=== PATIENT | female | born 1955 | race Caucasian/White ===

== ENCOUNTER 2016-09-02 15:50 | Inpatient (IN) | payer OTHER ==
[~2016-09-02] VITALS: Ht 165.1 cm; Wt 110.8 kg
[~2016-09-02 15:50] MED LIST: CLB100 PO; CLOP1TAB15 PO; CYAN500T13 PO; HYG25 PO; POTA20TA16 PO; SIMV20TA2 PO
[2016-09-02] MEDS ORDERED: SODIUM CHLORIDE 0.9% 1000ML 1,000 ML IV STA ×2 (16:11→17:39)
--- NOTE | 2016-09-02 16:13 | EMERGENCY ROOM VISIT NOTE ---
History Report prepared by Sherry: Oneida Lamas Under the Supervision of: Dr. Benny Paul M.D. First contact with patient: 16:05 Chief Complaint: CONFUSION Stated Complaint: CONFUSED, HEADACHE, UTI, WEAK History of Present Illness The patient is a 61 year old female who presents to the Emergency Room with complaints of worsening confusion beginning 2 hours prior to arrival. The patient states that she is experiencing confusion, global weakness, muscle aches , fatigue, body aches and a headache. She notes that she has experienced these symptoms before with a UTI. The patient is also experiencing nausea and vomiting. She denies fevers. The patient straight catheter herself and notes the urine has been darker in color. 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 A total of 10 systems reviewed and were otherwise negative. Past Medical & Surgical Medical Problems: (1) Anxiety (2) Anxiety State Nos (3) Bladder cancer (4) Bladder cancer (5) Cervical cancer (6) CKD (chronic kidney disease), stage III (7) COPD (chronic obstructive pulmonary disease) (8) Depression (9) Encephalopathy (10) Esophageal Reflux (11) GERD (gastroesophageal reflux disease) (12) HTN (hypertension) (13) HTN (hypertension) (14) Hyperlipidemia Nec/Nos (15) Left knee DJD (16) Seizure (17) Seizure (18) TIA (transient ischemic attack) (19) Tobacco abuse (20) UTI (urinary tract infection) Surgical Problems: (1) Bladder Replacement Nec (2) H/O hernia repair (3) H/O total cystectomy (4) H/O: hysterectomy (5) H/O: hysterectomy (6) History of salpingo-oophorectomy (7) History of total knee arthroplasty (8) Hx of total cystectomy (9) Urinostomy Status Nec Family History FHx: cancer FHx: lung disease Hypertension Social History Smoking Status: Current Every Day Smoker Alcohol Use: none Marital Status: Housing Status: lives with family Occupation Status: employed Current/Historical Medications Scheduled Aspirin (Aspirin Ec), 81 MG PO QAM Buspirone Hcl (Buspirone Hcl), 10 MG PO BID Celecoxib (Celebrex), 2 CAP PO BID Chlorthalidone (Chlorthalidone), 25 MG PO QAM Clopidogrel (Plavix), 75 MG PO QAM Cyanocobalamin (Vitamin B12 500MCG), 1,000 MCG PO QAM Levetiracetam (Keppra), 500 MG PO BID Omeprazole (Prilosec), 20 MG PO QAM Paroxetine (Paxil), 20 MG PO QAM Potassium Ext Rel (Klor-Con), 40 MEQ PO BID Simvastatin (Zocor), 20 MG PO QAM Allergies Coded Allergies: No Known Drug Allergy (Verified Allergy, Unknown, NONE, 09/02/16) Physical Exam Vital Signs Date Time Temp Pulse Resp B/P Pulse Ox O2 Delivery O2 Flow Rate FiO2 09/02/16 17:12 69 18 114/51 95 Room Air 09/02/16 15:54 36.7 85 16 125/81 97 Room Air Physical Exam GENERAL: Patient is uncomfortable appearing, diaphoretic and in no acute distress. HEENT: No acute trauma, normocephalic atraumatic, mucous membranes moist, no nasal congestion, no scleral icterus. NECK: No stridor, no adenopathy, no meningismus, trachea is midline. LUNGS: No dyspnea. Clear to auscultation and equal bilaterally. No wheeze, no rhonchi. HEART: Regular rate and rhythm. No murmurs, rubs, gallops appreciated. ABDOMEN: Extensive scaring with ostomy right mid abdomen. Soft, nontender, bowel sounds positive, no masses appreciated, no peritonitis. BACK: No midline tenderness, no CVA tenderness EXTREMITIES: Normal motion all extremities, no cyanosis, no edema. NEUROLOGIC: Alert and oriented, no acute motor or sensory deficits, no focal weakness, cranial nerves grossly intact. SKIN: No rash, no jaundice, no diaphoresis. Medical Decision & Procedures ER Provider Diagnostic Interpretation: X ray results are stated below per my interpretation and the radiologist's interpretation. CHEST ONE VIEW PORTABLE HISTORY: Generalized Weakness COMPARISON: Chest 02/10/2015. FINDINGS: The lungs are clear. Cardiac silhouette is normal in size. No pleural effusions. No pneumothorax. IMPRESSION: No acute process. Electronically signed by: Aneesh Sow M.D. 09/02/2016 4:31 PM Dictated Date/Time: 09/02/2016 4:30 PM Laboratory Results 09/02/16 16:20 Red Blood Count 4.99, Mean Corpuscular Volume 86.6, Mean Corpuscular Hemoglobin 29.7, Mean Corpuscular Hemoglobin Concent 34.3, Mean Platelet Volume 9.3, Neutrophils (%) (Auto) 78.4, Lymphocytes (%) (Auto) 13.1, Monocytes (%) (Auto) 7.3, Eosinophils (%) (Auto) 0.5, Basophils (%) (Auto) 0.2, Neutrophils # (Auto) 11.70, Lymphocytes # (Auto) 1.95, Monocytes # (Auto) 1.09, Eosinophils # (Auto) 0.08, Basophils # (Auto) 0.03 09/02/16 16:20 Test 09/02/16 16:20 09/02/16 16:27 09/02/16 16:55 White Blood Count 14.93 K/uL (4.8-10.8) Red Blood Count 4.99 M/uL (4.2-5.4) Hemoglobin 14.8 g/dL (12.0-16.0) Hematocrit 43.2 % (37-47) Mean Corpuscular Volume 86.6 fL (80-100) Mean Corpuscular Hemoglobin 29.7 pg (25-34) Mean Corpuscular Hemoglobin Concent 34.3 g/dl (32-36) Platelet Count 354 K/uL (130-400) Mean Platelet Volume 9.3 fL (7.4-10.4) Neutrophils (%) (Auto) 78.4 % Lymphocytes (%) (Auto) 13.1 % Monocytes (%) (Auto) 7.3 % Eosinophils (%) (Auto) 0.5 % Basophils (%) (Auto) 0.2 % Neutrophils # (Auto) 11.70 K/uL (1.4-6.5) Lymphocytes # (Auto) 1.95 K/uL (1.2-3.4) Monocytes # (Auto) 1.09 K/uL (0.11-0.59) Eosinophils # (Auto) 0.08 K/uL (0-0.5) Basophils # (Auto) 0.03 K/uL (0-0.2) RDW Standard Deviation 49.2 fL (36.4-46.3) RDW Coefficient of Variation 15.5 % (11.5-14.5) Immature Granulocyte % (Auto) 0.5 % Immature Granulocyte # (Auto) 0.08 K/uL (0.00-0.02) Prothrombin Time 12.0 SECONDS (9.0-12.0) Prothromb Time International Ratio 1.1 (0.9-1.1) Activated Partial Thromboplast Time 29.4 SECONDS (21.0-31.0) Partial Thromboplastin Ratio 1.1 Anion Gap 13.0 mmol/L (3-11) Est Creatinine Clear Calc Drug Dose 36.4 ml/min Estimated GFR () 34.1 Estimated GFR (Non- 29.4 BUN/Creatinine Ratio 24.3 (10-20) Calcium Level 8.6 mg/dl (8.5-10.1) Phosphorus Level 2.9 mg/dl (2.5-4.9) Magnesium Level 1.2 mg/dl (1.8-2.4) Total Bilirubin 0.4 mg/dl (0.2-1) Direct Bilirubin 0.1 mg/dl (0-0.2) Aspartate Amino Transf (AST/SGOT) 22 U/L (15-37) Alanine Aminotransferase (ALT/SGPT) 33 U/L (12-78) Alkaline Phosphatase 119 U/L (45-117) Total Creatine Kinase 105 U/L (26-192) Creatine Kinase MB 1.2 ng/ml (0.5-3.6) Creatine Kinase MB Ratio 1.1 (0-3.0) Troponin I < 0.015 ng/ml (0-0.045) C-Reactive Protein 3.78 mg/dl (0-0.29) Total Protein 7.8 gm/dl (6.4-8.2) Albumin 3.5 gm/dl (3.4-5.0) Lipase 187 U/L (73-393) Bedside Lactic Acid Venous 1.11 mmol/L (0.90-1.70) Urine Color YELLOW Urine Appearance CLOUDY (CLEAR) Urine pH 7.0 (4.5-7.5) Urine Specific [place] 1.013 (1.000-1.030) Urine Protein 1+ (NEG) Urine Glucose (UA) NEG (NEG) Urine Ketones NEG (NEG) Urine Occult Blood 2+ (NEG) Urine Nitrite POS (NEG) Urine Bilirubin NEG (NEG) Urine Urobilinogen NEG (NEG) Urine Leukocyte Esterase LARGE (NEG) Urine WBC (Auto) >30 /hpf (0-5) Urine RBC (Auto) 10-30 /hpf (0-4) Urine Hyaline Casts (Auto) 5-10 /lpf (0-5) Urine Epithelial Cells (Auto) 5-10 /lpf (0-5) Urine Bacteria (Auto) 1+ (NEG) Urine Pathogenic Casts /lpf (0) Laboratory results as reviewed by me. Medications Administered Medications (Trade) Dose Ordered Sig/Sujit Route Start Time Stop Time Status Last Admin Dose Admin Sodium Chloride (Nss 1000ml) 1,000 ml @ 999 mls/hr Q1H1M STAT IV 09/02/16 16:11 09/02/16 17:11 DC 09/02/16 16:37 999 MLS/HR Morphine Sulfate (MoRPHine SULFATE INJ) 6 mg NOW STAT IV 09/02/16 16:57 09/02/16 16:58 DC 09/02/16 17:10 6 MG Ondansetron HCl (Zofran Inj) 4 mg NOW STAT IV 09/02/16 16:57 09/02/16 16:58 DC 09/02/16 17:10 4 MG Ceftriaxone Sodium (Rocephin Inj) 1 gm NOW STAT IV 09/02/16 17:38 09/02/16 17:39 DC 09/02/16 17:45 1 GM Magnesium Sulfate 2 gm 2 gm NOW STAT IV 09/02/16 17:38 09/02/16 17:39 DC 09/02/16 17:51 2 GM Sodium Chloride (Nss 1000ml) 1,000 ml @ 125 mls/hr Q8H STAT IV 09/02/16 17:39 09/02/16 20:17 DC 09/02/16 17:46 125 MLS/HR ECG Indication: other (confusion) Rate (beats per minute): 68 Rhythm: normal sinus Findings: RBBB, no acute ischemic change, no ectopy ED Course 1607: The patient was evaluated in room B10. A complete history and physical exam was performed. 1611: Sodium Chloride 1,000 ml @ 999 mls/hr IV. 1657: Zofran Inj 4 mg IV, Morphine Sulfate Inj 6 mg IV. 173: Magnesium Sulfate 2 gm IV, Rocephin Inj 1 gm IV, Sodium Chloride 1,000 ml @ 125 mls/hr IV. 1757: Discussed the patient's case with KELLE Scherer. The patient will be evaluated for further treatment and disposition. 1801: Upon reevaluation, the patient is hemodynamically stable. Discussed results and treatment plan with the patient. She verbalized understanding and agreement with the treatment plan. The patient will be evaluated for further management. Medical Decision Differential: Toxicological, Infectious, Stroke, SAH, Trauma, Electrolyte Abnormality, Hypoglycemia, Alcohol Intoxication, Drug Intoxication, Cardiac Abnormality, Sepsis, Meningitis/Encephalitis, Trauma, Excited Delirium, Serotonin Syndrome, Psychiatric, amongst other pathologies entertained. 61 yr old feeling tired, fatigued and feeling confused. Alert and oriented without evidence of meningitis nor acute encephalitis. Labs with significant hypomag thus 2 g IV mag. UA consistent with UTI for which Rocephin given. Renal function with acute worsening from Cr 1 to 1.8 from previous. Consults Time Called: 1754 Consulting Physician: KELLE Scherer Returned Call: 1757 Discussed the patient's case. The patient will be evaluated for further treatment and disposition. Impression Primary Impression: Urinary tract infection Additional Impressions: Sepsis Acute renal failure Confusion Hypomagnesemia Scribe Attestation The scribe's documentation has been prepared under my direction and personally reviewed by me in its entirety. I confirm that the note above accurately reflects all work, treatment, procedures, and medical decision making performed by me. Departure Information Dispostion Being Evaluated By Hospitalist Referrals No Doctor, Assigned (PCP) Problem Qualifiers Primary Impression: Urinary tract infection Urinary tract infection type: acute cystitis Hematuria presence: with hematuria Qualified Codes: N30.01 - Acute cystitis with hematuria Additional Impressions: Sepsis Sepsis type: sepsis due to unspecified organism Qualified Codes: A41.9 - Sepsis, unspecified organism Acute renal failure Acute renal failure type: unspecified Qualified Codes: N17.9 - Acute kidney failure, unspecified
[2016-09-02 16:32] LABS: HEMATOCRIT 43.2 % (37-47); MEAN CELL VOLUME 86.6 fL (80-100); MEAN CORPUSCULAR HEMOGLOBIN 29.7 pg (25-34); MEAN CORPUSCULAR HGB CONC 34.3 g/dl (32-36); MEAN PLATELET VOLUME 9.3 fL (7.4-10.4); PLATELET COUNT 354 K/uL (130-400); RED BLOOD COUNT 4.99 M/uL (4.2-5.4); WHITE BLOOD COUNT 14.93 K/uL (4.8-10.8)
--- NOTE | 2016-09-02 16:32 | DIAGNOSTIC IMAGING REPORT ---
CHEST ONE VIEW PORTABLE HISTORY: Generalized Weakness COMPARISON: Chest 02/10/2015. FINDINGS: The lungs are clear. Cardiac silhouette is normal in size. No pleural effusions. No pneumothorax. IMPRESSION: No acute process. Electronically signed by: Aneesh Sow M.D. 09/02/2016 4:31 PM Dictated Date/Time: 09/02/2016 4:30 PM
[2016-09-02 16:40] LABS: INR 1.1 (0.9-1.1); PARTIAL THROMBOPLASTIN RATIO 1.1
[2016-09-02 16:52] LABS: ALT/SGPT 33 U/L (12-78); AST/SGOT 22 U/L (15-37); BLOOD UREA NITROGEN 44 mg/dl (7-18); BUN/CREATININE RATIO 24.3 (10-20); CALCIUM 8.6 mg/dl (8.5-10.1); CARBON DIOXIDE 19 mmol/L (21-32); CHLORIDE 110 mmol/L (98-107); GLUCOSE 100 mg/dl (70-99); MAGNESIUM 1.2 mg/dl (1.8-2.4); POTASSIUM 3.5 mmol/L (3.5-5.1); SODIUM 142 mmol/L (136-145)
[2016-09-02 16:55] LABS: ALKALINE PHOSPHATASE 119 U/L (45-117); BASO % 0.2 %; BASO ABS # 0.03 K/uL (0-0.2); C-REACTIVE PROTEIN 3.78 mg/dl (0-0.29); CKMB/CK RATIO 1.1 (0-3.0); COMPLETE YES; EOS % 0.5 %; IG% 0.5 %; LYMPH % 13.1 %; LYMPH ABS # 1.95 K/uL (1.2-3.4); MONO % 7.3 %; NEUT % 78.4 %; PHOSPHORUS 2.9 mg/dl (2.5-4.9)
[2016-09-02] MEDS ORDERED: MoRPHine SULFATE 10 MG/ML CARP/VIAL IV STA (16:57)
[2016-09-02] MEDS ORDERED: ONDANSETRON INJ 2 MG/ML 2 ML VIAL IV STA (16:57)
[2016-09-02 17:19] LABS: URINE APPEARANCE CLOUDY (CLEAR); URINE BILIRUBIN NEG (NEG); URINE COLOR YELLOW; URINE NITRITE POS (NEG); URINE SPECIFIC GRAVITY 1.013 (1.000-1.030); UROBILINOGEN NEG (NEG); ZZURINE CULT IF INDIC CATH YES
[2016-09-02 17:25] LABS: MANUAL MICROSCOPIC REQUIRED? NO; REVIEW REQ? YES
[2016-09-02] MEDS ORDERED: CEFTRIAXONE SOD INJ 1 GM ADDVIAL IV STA (17:38)
[2016-09-02] MEDS ORDERED: MAGNESIUM SULFATE 1GM / D5W 1 GM BAG IV STA (17:38)
[2016-09-02] MEDS: NICOTINE 14 MG/24 HR TDSY TD SCH (18:39)
[2016-09-02] MEDS ORDERED: ONDANSETRON INJ 2 MG/ML 2 ML VIAL IV PRN (18:45)
--- NOTE | 2016-09-02 19:03 | History and Physical ---
History & Physical Date & Time of Service: September 02, 2016 at 18:43 Chief Complaint: Confused, Headache, Uti, Weak Primary Care Physician: Cyril Kaiser MD History of Present Illness Source: patient, family, clinic records, hospital records Patient seen and examined. 61 year old female with PMHX of Bladder CA s/p cystectomy, COPD chronic tobacco abuse, anxiety, HTN, CKD stage 3 seizures and other problems listed below presents to the ED complaining of confusion beginning prior to arrival. Patient reports that this afternoon she started to not feel well. She felt confused like she was in a fog. She reports feeling generally weak and myalgias. She states she has nausea and two episodes of vomiting. She also reports a headache. She states this has happened before when she has had UTIs and she has previously become septic so she came to the ED for further evaluation. Patient has a history of bladder CA and straight caths at home. She states her urine looks dark. She also reports diarrhea for many years. She states she can have >10 episodes some days and takes Imodium very often however then she gets constipated and has to stop. She states today she has had five episodes of watery diarrhea. She denies fevers, chills, URI symptoms, chest pain, SOB, calf pain and edema. She denies recent abx use. She reports chronic Celebrex 200mg BID. She states she also will take 800mg of ibuprofen on top of that which she has done three times this week. In the ED VS are stable. WBC count is 14K, Lactate is <2, UA shows possible infection. Crea is 1.8 from baseline of 1. She received IVFs and Rocephin. She will be admitted for further workup and treatment. Past Medical/Surgical History Medical Problems: (1) Anxiety Status: Chronic (2) Anxiety State Nos Status: Chronic (3) Bladder cancer Status: Resolved (4) Bladder cancer Status: Chronic (5) Cervical cancer Status: Chronic (6) CKD (chronic kidney disease), stage III Status: Chronic (7) COPD (chronic obstructive pulmonary disease) Status: Chronic (8) Depression Status: Chronic (9) Esophageal Reflux Status: Chronic (10) GERD (gastroesophageal reflux disease) Status: Chronic (11) HTN (hypertension) Status: Chronic (12) HTN (hypertension) Status: Chronic (13) Hyperlipidemia Nec/Nos Status: Chronic (14) Left knee DJD Status: Resolved (15) Seizure Status: Chronic (16) Seizure Status: Chronic (17) TIA (transient ischemic attack) Status: Chronic (18) Tobacco abuse Status: Chronic Surgical Problems: (1) Bladder Replacement Nec Status: Resolved (2) H/O hernia repair Status: Chronic (3) H/O total cystectomy Status: Resolved (4) H/O: hysterectomy Status: Resolved (5) H/O: hysterectomy Status: Chronic (6) History of salpingo-oophorectomy Status: Chronic (7) History of total knee arthroplasty Status: Chronic (8) Hx of total cystectomy Permanent Comment: with marlin pouch Status: Chronic (9) Urinostomy Status Nec Status: Chronic Family History FHx: cancer FHx: lung disease Hypertension Social History Smoking Status: Current Every Day Smoker Alcohol Use: none Marital Status: Housing status: lives with family Occupational Status: retired Immunizations History of Influenza Vaccine: Yes History of Tetanus Vaccine?: UTD History of Pneumococcal: No History of Hepatitis B Vaccine: No Allergies Coded Allergies: No Known Drug Allergy (Verified Allergy, Unknown, NONE, 09/02/16) Home Medications Scheduled Aspirin (Aspirin Ec), 81 MG PO QAM Buspirone Hcl (Buspirone Hcl), 10 MG PO BID Celecoxib (Celebrex), 2 CAP PO BID Chlorthalidone (Chlorthalidone), 25 MG PO QAM Clopidogrel (Plavix), 75 MG PO QAM Cyanocobalamin (Vitamin B12 500MCG), 1,000 MCG PO QAM Levetiracetam (Keppra), 500 MG PO BID Omeprazole (Prilosec), 20 MG PO QAM Paroxetine (Paxil), 20 MG PO QAM Potassium Ext Rel (Klor-Con), 40 MEQ PO BID Simvastatin (Zocor), 20 MG PO QAM Review of Systems Constitutional: + fatigue, + weakness, No chills, No fever Eyes: No worsening of vision ENT: No nasal symptoms Respiratory: No cough, No shortness of breath Cardiovascular: No chest pain, No edema, No palpitations Abdomen: + diarrhea, + nausea, + vomiting, No constipation, No pain Musculoskeletal: + muscle pain, No calf pain, No swelling Genitourinary - Female: + problem reported (straight caths ) Neurologic: No numbness/tingling, No vertigo Psychiatric: No anxiety Endocrine: No excessive thirst, No fatigue Hematologic / Lymphatic: No abnormal bleeding/bruising, No clotting problems Integumentary: No itch, No rash Allergic / Immunologic: No environmental allergies Physical Exam Vital Signs Date Time Temp Pulse Resp B/P Pulse Ox O2 Delivery O2 Flow Rate FiO2 09/02/16 17:12 69 18 114/51 95 Room Air 09/02/16 15:54 36.7 85 16 125/81 97 Room Air General Appearance: + pertinent finding (WD/WN 61 year old female lying in bed in NAD with at bedside ) Head: normocephalic, atraumatic Eyes: PERRL, EOMI, sclerae normal ENT: hearing grossly normal, pharynx normal Neck: supple, no JVD Respiratory/Chest: chest non-tender, lungs clear, normal breath sounds, no respiratory distress, no accessory muscle use Cardiovascular: regular rate, rhythm, no edema, no gallop, no JVD, no murmur, normal peripheral pulses Abdomen/GI: normal bowel sounds, non tender, soft, + pertinent finding ( straight cath ostomey site right middle abdomen ) Back: normal inspection, no CVA tenderness, no muscle spasm Extremities/Musculoskelatal: no calf tenderness, normal capillary refill, no pedal edema Neurologic/Psych: alert, oriented x 3, + pertinent finding (oriented, thought process tangential, fixated on nicotine patch, no focal deficits ) Skin: normal color, warm/dry, no rash Lymphatic: no adenopathy Diagnostics Laboratory Results Results Past 24 Hours Test 09/02/16 16:20 09/02/16 16:27 09/02/16 16:55 Range/Units White Blood Count 14.93 4.8-10.8 K/uL Red Blood Count 4.99 4.2-5.4 M/uL Hemoglobin 14.8 12.0-16.0 g/dL Hematocrit 43.2 37-47 % Mean Corpuscular Volume 86.6 80-100 fL Mean Corpuscular Hemoglobin 29.7 25-34 pg Mean Corpuscular Hemoglobin Concent 34.3 32-36 g/dl Platelet Count 354 130-400 K/uL Mean Platelet Volume 9.3 7.4-10.4 fL Neutrophils (%) (Auto) 78.4 % Lymphocytes (%) (Auto) 13.1 % Monocytes (%) (Auto) 7.3 % Eosinophils (%) (Auto) 0.5 % Basophils (%) (Auto) 0.2 % Neutrophils # (Auto) 11.70 1.4-6.5 K/uL Lymphocytes # (Auto) 1.95 1.2-3.4 K/uL Monocytes # (Auto) 1.09 0.11-0.59 K/uL Eosinophils # (Auto) 0.08 0-0.5 K/uL Basophils # (Auto) 0.03 0-0.2 K/uL RDW Standard Deviation 49.2 36.4-46.3 fL RDW Coefficient of Variation 15.5 11.5-14.5 % Immature Granulocyte % (Auto) 0.5 % Immature Granulocyte # (Auto) 0.08 0.00-0.02 K/uL Prothrombin Time 12.0 9.0-12.0 SECONDS Prothromb Time International Ratio 1.1 0.9-1.1 Activated Partial Thromboplast Time 29.4 21.0-31.0 SECONDS Partial Thromboplastin Ratio 1.1 Sodium Level 142 136-145 mmol/L Potassium Level 3.5 3.5-5.1 mmol/L Chloride Level 110 98-107 mmol/L Carbon Dioxide Level 19 21-32 mmol/L Anion Gap 13.0 3-11 mmol/L Blood Urea Nitrogen 44 7-18 mg/dl Creatinine 1.80 0.60-1.20 mg/dl Est Creatinine Clear Calc Drug Dose 36.4 ml/min Estimated GFR () 34.1 Estimated GFR (Non- 29.4 BUN/Creatinine Ratio 24.3 10-20 Random Glucose 100 70-99 mg/dl Calcium Level 8.6 8.5-10.1 mg/dl Phosphorus Level 2.9 2.5-4.9 mg/dl Magnesium Level 1.2 1.8-2.4 mg/dl Total Bilirubin 0.4 0.2-1 mg/dl Direct Bilirubin 0.1 0-0.2 mg/dl Aspartate Amino Transf (AST/SGOT) 22 15-37 U/L Alanine Aminotransferase (ALT/SGPT) 33 12-78 U/L Alkaline Phosphatase 119 45-117 U/L Total Creatine Kinase 105 26-192 U/L Creatine Kinase MB 1.2 0.5-3.6 ng/ml Creatine Kinase MB Ratio 1.1 0-3.0 Troponin I < 0.015 0-0.045 ng/ml C-Reactive Protein 3.78 0-0.29 mg/dl Total Protein 7.8 6.4-8.2 gm/dl Albumin 3.5 3.4-5.0 gm/dl Lipase 187 73-393 U/L Bedside Lactic Acid Venous 1.11 0.90-1.70 mmol/L Urine Color YELLOW Urine Appearance CLOUDY CLEAR Urine pH 7.0 4.5-7.5 Urine Specific [place] 1.013 1.000-1.030 Urine Protein 1+ NEG Urine Glucose (UA) NEG NEG Urine Ketones NEG NEG Urine Occult Blood 2+ NEG Urine Nitrite POS NEG Urine Bilirubin NEG NEG Urine Urobilinogen NEG NEG Urine Leukocyte Esterase LARGE NEG Urine WBC (Auto) >30 0-5 /hpf Urine RBC (Auto) 10-30 0-4 /hpf Urine Hyaline Casts (Auto) 5-10 0-5 /lpf Urine Epithelial Cells (Auto) 5-10 0-5 /lpf Urine Bacteria (Auto) 1+ NEG Urine Pathogenic Casts 0 /lpf Microbiology Results 09/02/16 Urine Culture, Received Pending Diagnostic Radiology CXR Per radiologist read: IMPRESSION: No acute process. EKG NSR 68 BPM, RBBB QTc 448 Impression Assessment and Plan 61 year old female who chronically straight caths presents to the ED complaining of confusion, generalized weakness, nausea/vomiting. States this is how she feels when she is getting a UTI. Urine darker than normal ENCEPHALOPATHY SECONDARY TO URINARY TRACT INFECTION -Admit to tele -Afebrile, lactate 1.1, WBC count 14K, BP stable -Of note leukocytosis has been noted for several years - patient has seen Heme/ onc who believe leukemoid reaction. -UA with signs of infection, culture pending -previous cultures with Klebsiella resistant to ampicillin -continue empiric treatment with Rocephin started in ED, adjust per sensitives -IVF hydration -CBC, PRP, Mg in AM ACUTE RENAL INJURY ON CKD STAGE 3 -Crea 1.8 baseline 1 -like multifactorial secondary to dehydration, diuretic use, and NSAID use -hold Diuretics, NSAIDs -IVF hydration -Repeat PRP in AM -if renal function does not improve explore further workup HYPOMAGNESEMIA -1.2 -replace -follow DIARRHEA -somewhat chronic but possibly worse now -check C.diff H/O BLADDER CA -s/p cystectomy with Bremer pouch -continue to straight cath H/O TIA -continue Statin, ASA, Plavix HTN -stable -hold chlorthalidone for ASHA -monitor in tele H/O SEIZURES -continue Keppra TOBACCO ABUSE -Cessation counseling given -Nicotine patch ordered ANXIETY -continue BuSpar, Paxil H/O CERVICAL CA -s/p hysterectomy GERD -continue PPI DVT PROPHYLAXIS: Sq heparin CODE STATUS: FULL CODE DISPO:In my clinical judgment this beneficiary meets acute admission criteria, established by [facility], that includes being hospitalized through two midnights. Patient seen in collaboration with Dr. Troy VTE Prophylaxis VTE Risk Assessment Done? Y/N: Yes Risk Level: Moderate Given or contraindicated: Unfractionated heparin SQ Note ATTENDING ADDENDUM Record reviewed. Patient interviewed and examined. Care coordinated with Leila Mohamud PA-C. Please refer to her documentation for patient's history. Briefly, 61 YO female with history of recurrent UTI's. History of bladder and cervical Ca; s/p cystectomy with Bremer pouch. Performs straight caths 3-5 times a day. Presented to ED with confusion, myalgias, nausea, vomiting, dark-colored urine. Has chronic diarrhea, but stool frequency increased. EXAM: General- no distress VS- as noted HEENT- anicteric Neck- supple Lungs- clear Heart- RRR Abdomen- + BS, soft, nontender Back- no CVT tenderness Extremities- no pretibial edema or calf tenderness Neuro- alert, oriented DATA: WBC 14,930 BUN 44, creat 1.8, K 3.5, Mg 1.2. Lactate 1.11, CRP 3.78. UA- + nitrites, + leuk esterase, > 30 WBC, 10-30 RBC, 5-10 hyaline casts, + bacteria. Other lab studies as noted. CXR- neg. EKG performed at 16:37 reviewed and demonstrated NSR at 70 / minute, RBBB. ASSESSMENT AND PLAN: UTI UA findings could be secondary to UTI or colonization, but WBC is elevated and pt feels that symptoms are consistent with previous UTI's. Urine culture ordered. Does not appear to be septic. Received IV ceftriaxone in ED which will be continued. CONFUSION Patient felt confused at home. Alert and oriented in ED. Possible encephalopathy secondary to UTI. Please refer to KELLE Mohamud's documentation for discussion of other issues. ACUTE KIDNEY INJURY / CKD III Serum creatinine 1.8, compared to baseline of 1.0. Probably volume depleted. IV fluids. Hold chlorthalidone. Follow. Will need further eval if renal function does not improve to baseline. HYPOMAGNESEMIA Replace. Follow. LOOSE STOOLS Chronic, but more frequent. Has been on multiple courses of antibiotics. Check for C diff. Please refer to KELLE Mohamud's documentation for discussion of other issues. Ted Troy MD .
[2016-09-02 20:00] VITALS: BP 119/71; TEMP 36.4; Ht 165.1 cm; Wt 110.8 kg
[2016-09-02 20:31] VITALS: BP 158/82; PULSE 62; TEMP 36.4; O2SAT 94
[2016-09-02] MEDS: ACETAMINOPHEN 325 MG TAB PO PRN (22:02)
[2016-09-02] MEDS: SODIUM CHLORIDE 0.9% 1000ML 1,000 ML IV SCH (22:03)
[2016-09-02] MEDS: POTASSIUM CHLORIDE 20 MEQ TABCR PO SCH (22:05)
[2016-09-02] MEDS: MAGNESIUM CHLORIDE 64MG DELAYED REL TAB PO SCH (22:06)
[2016-09-02] MEDS: LEVETIRACETAM 500 MG TAB PO SCH (22:07)
[2016-09-02] MEDS: HEPARIN SOD 5000 UNIT/0.5 ML CARP SQ SCH (22:18)
[2016-09-02 23:24] VITALS: BP 93/53; PULSE 61; TEMP 36.5; O2SAT 93
[2016-09-03] VITALS (8 sets, daily range): BP systolic 110–135; BP diastolic 64–81; PULSE 52–56; TEMP 36.3–36.9; O2SAT 94–98
[2016-09-03] MEDS: SODIUM CHLORIDE 0.9% 1000ML 1,000 ML IV SCH ×3 (04:48→18:45)
[2016-09-03] MEDS: HEPARIN SOD 5000 UNIT/0.5 ML CARP SQ SCH ×3 (05:33→21:06)
[2016-09-03 05:46] LABS: HEMATOCRIT 39.5 % (37-47); MEAN CELL VOLUME 88.6 fL (80-100); MEAN CORPUSCULAR HEMOGLOBIN 28.9 pg (25-34); MEAN CORPUSCULAR HGB CONC 32.7 g/dl (32-36); MEAN PLATELET VOLUME 9.4 fL (7.4-10.4); PLATELET COUNT 303 K/uL (130-400); RED BLOOD COUNT 4.46 M/uL (4.2-5.4); WHITE BLOOD COUNT 10.84 K/uL (4.8-10.8)
[2016-09-03 06:20] LABS: BUN/CREATININE RATIO 26.3 (10-20); CREATININE 1.3 mg/dl (0.60-1.20); MAGNESIUM 1.8 mg/dl (1.8-2.4); POTASSIUM 3.6 mmol/L (3.5-5.1)
[2016-09-03] MEDS: ACETAMINOPHEN 325 MG TAB PO PRN ×2 (06:24→16:04)
[2016-09-03 06:40] LABS: CALCIUM 7.4 mg/dl (8.5-10.1)
[2016-09-03] MEDS ORDERED: NURSING VERBAL MED ORDER ONE (06:45)
[2016-09-03] MEDS ORDERED: LORAZEPAM 0.5 MG TAB PO STA (06:52)
[2016-09-03] MEDS: POTASSIUM CHLORIDE 20 MEQ TABCR PO SCH ×2 (07:51→21:04)
[2016-09-03] MEDS: CYANOCOBALAMIN 500 MCG TAB (VIT B-12) PO SCH (07:52)
[2016-09-03] MEDS: MAGNESIUM CHLORIDE 64MG DELAYED REL TAB PO SCH ×2 (07:52→21:03)
[2016-09-03] MEDS: SIMVASTATIN 20 MG TAB PO SCH (07:52)
[2016-09-03] MEDS: PANTOprazole SOD 40 MG TAB PO SCH (07:52)
[2016-09-03] MEDS: ASPIRIN 81 MG ECTAB PO SCH (07:52)
[2016-09-03] MEDS: LEVETIRACETAM 500 MG TAB PO SCH ×2 (07:52→21:03)
[2016-09-03] MEDS: NICOTINE 14 MG/24 HR TDSY TD SCH (07:53)
[2016-09-03] MEDS: CLOPIDOGREL BISULFATE 75 MG TAB PO SCH (07:53)
[2016-09-03] MEDS: PAROXETINE 20 MG TAB PO SCH (07:53)
--- NOTE | 2016-09-03 11:50 | Progress Note ---
Internal Med Progress Note Date of Service: September 03, 2016. Provider Documentation: SUBJECTIVE: Patient is marginally better than yesterday. Mental fogginess is better, but has generalized weakness which is persistent Dysuria, frequency is better Chronic diarrhea No flank pain, fever, chills, nausea, vomiting. OBJECTIVE: Vital Signs-as noted below Exam: General: AAOX3, no distress, Obese + HEENT- anicteric Neck- supple Lungs- clear, no wheezing, rhonchi Heart- S1, S2 normal, no murmur Abdomen- + BS, soft, nontender Back- no CVT tenderness Extremities- no pretibial edema or calf tenderness Neuro- AAOX3, no deficits Lab data as noted below. ASSESSMENT & PLAN: 61 year old female who chronically straight caths presents to the ED complaining of confusion, generalized weakness, nausea/vomiting. States this is how she feels when she is getting a UTI. Urine darker than normal METABOLIC ENCEPHALOPATHY SECONDARY TO URINARY TRACT INFECTION -Afebrile, lactate 1.1, WBC count 14K- trending down, BP stable -Of note leukocytosis has been noted for several years - patient has seen Heme/ onc who believe leukemoid reaction. -UA with signs of infection, culture pending -Previous cultures with Klebsiella resistant to ampicillin -Continue with IV Rocephin -IVF hydration - to be continued, but decrease rate to 75 cc/hour ACUTE RENAL INJURY ON CKD STAGE 3- Improving -Creatinine 1.8 baseline 1 -Likely multifactorial secondary to dehydration, diuretic use, and NSAID use, chronic diarrhea - multifactorial -Hold Diuretics, NSAIDs -IVF hydration - decrease rate to 75 cc/hour HYPOMAGNESEMIA - Resolved -1.2 on presentation -follow DIARRHEA, CHRONIC -Chronic per patient -C.diff - pending H/O BLADDER CA -s/p cystectomy with [place] pouch -continue to straight cath H/O TIA -continue Statin, ASA, Plavix HTN -stable -hold chlorthalidone for ASHA -monitor in tele H/O SEIZURES -continue Keppra TOBACCO ABUSE -Cessation counseling given -Nicotine patch ordered ANXIETY -continue BuSpar, Paxil H/O CERVICAL CA -s/p hysterectomy GERD -continue PPI DVT PROPHYLAXIS: Sq heparin CODE STATUS: FULL CODE DISPO:In my clinical judgment this beneficiary meets acute admission criteria, established by [facility], that includes being hospitalized through two midnights. Vital Signs: Date Time Temp Pulse Resp B/P Pulse Ox O2 Delivery O2 Flow Rate FiO2 09/03/16 11:08 36.6 52 18 131/81 98 Room Air 09/03/16 08:00 98 Room Air 09/03/16 06:56 36.3 56 18 124/64 98 Room Air 09/03/16 04:05 Room Air 09/03/16 04:04 36.4 55 18 119/71 96 Room Air 09/03/16 00:05 Room Air 09/02/16 23:24 36.5 61 18 93/53 93 Room Air 09/02/16 20:31 36.4 62 18 158/82 94 Room Air 09/02/16 20:00 36.4 18 119/71 Room Air 09/02/16 19:07 61 18 119/62 92 Room Air 09/02/16 17:12 69 18 114/51 95 Room Air 09/02/16 15:54 36.7 85 16 125/81 97 Room Air Lab Results: Results Past 24 Hours Test 09/02/16 16:20 09/02/16 16:27 09/02/16 16:55 09/03/16 05:30 Range/Units White Blood Count 14.93 10.84 4.8-10.8 K/uL Red Blood Count 4.99 4.46 4.2-5.4 M/uL Hemoglobin 14.8 12.9 12.0-16.0 g/dL Hematocrit 43.2 39.5 37-47 % Mean Corpuscular Volume 86.6 88.6 80-100 fL Mean Corpuscular Hemoglobin 29.7 28.9 25-34 pg Mean Corpuscular Hemoglobin Concent 34.3 32.7 32-36 g/dl Platelet Count 354 303 130-400 K/uL Mean Platelet Volume 9.3 9.4 7.4-10.4 fL Neutrophils (%) (Auto) 78.4 % Lymphocytes (%) (Auto) 13.1 % Monocytes (%) (Auto) 7.3 % Eosinophils (%) (Auto) 0.5 % Basophils (%) (Auto) 0.2 % Neutrophils # (Auto) 11.70 1.4-6.5 K/uL Lymphocytes # (Auto) 1.95 1.2-3.4 K/uL Monocytes # (Auto) 1.09 0.11-0.59 K/uL Eosinophils # (Auto) 0.08 0-0.5 K/uL Basophils # (Auto) 0.03 0-0.2 K/uL RDW Standard Deviation 49.2 50.4 36.4-46.3 fL RDW Coefficient of Variation 15.5 15.6 11.5-14.5 % Immature Granulocyte % (Auto) 0.5 % Immature Granulocyte # (Auto) 0.08 0.00-0.02 K/uL Prothrombin Time 12.0 9.0-12.0 SECONDS Prothromb Time International Ratio 1.1 0.9-1.1 Activated Partial Thromboplast Time 29.4 21.0-31.0 SECONDS Partial Thromboplastin Ratio 1.1 Sodium Level 142 144 136-145 mmol/L Potassium Level 3.5 3.6 3.5-5.1 mmol/L Chloride Level 110 114 98-107 mmol/L Carbon Dioxide Level 19 20 21-32 mmol/L Anion Gap 13.0 10.0 3-11 mmol/L Blood Urea Nitrogen 44 34 7-18 mg/dl Creatinine 1.80 1.30 0.60-1.20 mg/dl Est Creatinine Clear Calc Drug Dose 36.4 54.1 ml/min Estimated GFR () 34.1 50.6 Estimated GFR (Non- 29.4 43.6 BUN/Creatinine Ratio 24.3 26.3 10-20 Random Glucose 100 84 70-99 mg/dl Calcium Level 8.6 7.4 8.5-10.1 mg/dl Phosphorus Level 2.9 2.5-4.9 mg/dl Magnesium Level 1.2 1.8 1.8-2.4 mg/dl Total Bilirubin 0.4 0.2-1 mg/dl Direct Bilirubin 0.1 0-0.2 mg/dl Aspartate Amino Transf (AST/SGOT) 22 15-37 U/L Alanine Aminotransferase (ALT/SGPT) 33 12-78 U/L Alkaline Phosphatase 119 45-117 U/L Total Creatine Kinase 105 26-192 U/L Creatine Kinase MB 1.2 0.5-3.6 ng/ml Creatine Kinase MB Ratio 1.1 0-3.0 Troponin I < 0.015 0-0.045 ng/ml C-Reactive Protein 3.78 0-0.29 mg/dl Total Protein 7.8 6.4-8.2 gm/dl Albumin 3.5 3.4-5.0 gm/dl Lipase 187 73-393 U/L Bedside Lactic Acid Venous 1.11 0.90-1.70 mmol/L Urine Color YELLOW Urine Appearance CLOUDY CLEAR Urine pH 7.0 4.5-7.5 Urine Specific [place] 1.013 1.000-1.030 Urine Protein 1+ NEG Urine Glucose (UA) NEG NEG Urine Ketones NEG NEG Urine Occult Blood 2+ NEG Urine Nitrite POS NEG Urine Bilirubin NEG NEG Urine Urobilinogen NEG NEG Urine Leukocyte Esterase LARGE NEG Urine WBC (Auto) >30 0-5 /hpf Urine RBC (Auto) 10-30 0-4 /hpf Urine Hyaline Casts (Auto) 5-10 0-5 /lpf Urine Epithelial Cells (Auto) 5-10 0-5 /lpf Urine Bacteria (Auto) 1+ NEG Urine Pathogenic Casts 0 /lpf Microbiology Results 09/02/16 Urine Culture, Received Pending
[2016-09-03] MEDS ORDERED: CEFTRIAXONE SOD INJ 1 GM in DEXTROSE 5% ADD-VANTAGE 50ML 50 ML IV SCH (18:00)
[2016-09-04] MEDS: SODIUM CHLORIDE 0.9% 1000ML 1,000 ML IV SCH (02:15)
[2016-09-04 04:17] VITALS: BP 124/60; PULSE 56; TEMP 36.9; O2SAT 95
[2016-09-04] MEDS: HEPARIN SOD 5000 UNIT/0.5 ML CARP SQ SCH ×2 (05:28→12:26)
[2016-09-04] MEDS ORDERED: ACETAMINOPHEN IV 1000MG/100ML IV PRN (06:15)
[2016-09-04 06:44] LABS: HEMATOCRIT 39.2 % (37-47); MEAN CELL VOLUME 87.9 fL (80-100); MEAN CORPUSCULAR HEMOGLOBIN 28.9 pg (25-34); MEAN CORPUSCULAR HGB CONC 32.9 g/dl (32-36); MEAN PLATELET VOLUME 9.2 fL (7.4-10.4); PLATELET COUNT 334 K/uL (130-400); RED BLOOD COUNT 4.46 M/uL (4.2-5.4); WHITE BLOOD COUNT 9.92 K/uL (4.8-10.8)
[2016-09-04 07:08] LABS: BUN/CREATININE RATIO 19.8 (10-20); CALCIUM 8.1 mg/dl (8.5-10.1); CREATININE 1.3 mg/dl (0.60-1.20); POTASSIUM 4.1 mmol/L (3.5-5.1)
[2016-09-04 07:18] LABS: THYROID STIMULATING HORMONE 2.19 uIu/ml (0.300-4.500)
[2016-09-04] MEDS: CLOPIDOGREL BISULFATE 75 MG TAB PO SCH (07:24)
[2016-09-04] MEDS: ASPIRIN 81 MG ECTAB PO SCH (07:24)
[2016-09-04] MEDS: PANTOprazole SOD 40 MG TAB PO SCH (07:24)
[2016-09-04] MEDS: SIMVASTATIN 20 MG TAB PO SCH (07:25)
[2016-09-04] MEDS: PAROXETINE 20 MG TAB PO SCH (07:25)
[2016-09-04] MEDS: LEVETIRACETAM 500 MG TAB PO SCH (07:25)
[2016-09-04] MEDS: CYANOCOBALAMIN 500 MCG TAB (VIT B-12) PO SCH (07:25)
[2016-09-04] MEDS: POTASSIUM CHLORIDE 20 MEQ TABCR PO SCH (07:25)
[2016-09-04] MEDS: NICOTINE 14 MG/24 HR TDSY TD SCH (07:26)
[2016-09-04] MEDS: MAGNESIUM CHLORIDE 64MG DELAYED REL TAB PO SCH (07:26)
[2016-09-04 07:28] VITALS: BP 103/53; PULSE 62; TEMP 36.5; O2SAT 97
[2016-09-04 08:00] VITALS: O2SAT 97
--- NOTE | 2016-09-04 09:57 | Progress Note ---
Internal Med Progress Note Date of Service: September 04, 2016. Provider Documentation: SUBJECTIVE: Patient is feeling much better today. Mental fogginess has completely resolved. Generalized weakness has improved. Dysuria, frequency has resolved. Chronic diarrhea with no worsening. No flank pain, fever, chills, nausea, vomiting. Eager and anxious to be discharged OBJECTIVE: Vital Signs-as noted below Exam: General: AAOX3, no distress, Obese + HEENT- anicteric Neck- supple Lungs- clear, no wheezing, rhonchi Heart- S1, S2 normal, no murmur Abdomen- + BS, soft, nontender Back- no CVT tenderness Extremities- no pretibial edema or calf tenderness Neuro- AAOX3, no deficits Lab data as noted below. ASSESSMENT & PLAN: 61 year old female who chronically straight caths presents to the ED complaining of confusion, generalized weakness, nausea/vomiting. States this is how she feels when she is getting a UTI. Urine darker than normal METABOLIC ENCEPHALOPATHY SECONDARY TO URINARY TRACT INFECTION : Resolved -Afebrile, lactate 1.1, WBC count 14K- normalized, BP stable -Of note leukocytosis has been noted for several years - patient has seen Heme/ onc who believe leukemoid reaction. -UA with signs of infection, culture - >[id number] gregorio strep, not enterococcus -Previous cultures with Klebsiella resistant to ampicillin -IV Rocephin - Day 2. Change to Keflex 500 mg PO BID x 3 more days to complete course of 5 days of antibiotics -IVF hydration - to be continued, but decrease rate to 75 cc/hour ACUTE RENAL INJURY ON CKD STAGE 3- Improved -Creatinine 1.8 baseline 1.2, near baseline --> 1.3 -Likely multifactorial secondary to dehydration, diuretic use, and NSAID use ( On celebrex scheduled and on top of it took Ibuprofen 800 mg PO TID 3 times a week prior to admission), chronic diarrhea - multifactorial. Mostly it is renal. -Hold Diuretics, NSAIDs. Will continue to hold lasix x 2 days and than restart on Day 3. Counseled about avoiding NSAIDs and prefer tylenol PRN for arthritic pain. -BMP to be done on 09/07/16. -IVF hydration - decrease rate to 75 cc/hour HYPOMAGNESEMIA - Resolved -1.2 on presentation, resolved -Will start on Mg Oxide 400 mg PO BID on a daily basis as has chronic issues with hypomagnesemia -Monitor outpatient DIARRHEA, CHRONIC -Chronic per patient -C.diff - pending, still not collected--> Diarrhea has improved. H/O BLADDER CA -s/p cystectomy with [place] pouch -continue to straight cath as prior to admission H/O TIA -continue Statin, ASA, Plavix HTN -stable -Hold chlorthalidone for ASHA and BP has been < 120/80 without being on any antihypertensive medications. So will discontinue it on discharge. -Follow up closely outpatient H/O SEIZURES -continue Keppra TOBACCO ABUSE -Cessation counseling given -Nicotine patch ordered ANXIETY -continue BuSpar, Paxil H/O CERVICAL CA -S/P hysterectomy GERD -continue PPI DVT PROPHYLAXIS: SQ heparin CODE STATUS: FULL CODE DISPO: Eager to be discharged home. As creatinine is improving and clinically improved, okay to discharge home with follow up BMP /PCP visit in 7 days. Okay to discharge home.. Vital Signs: Date Time Temp Pulse Resp B/P Pulse Ox O2 Delivery O2 Flow Rate FiO2 09/04/16 08:00 97 Room Air 09/04/16 07:28 36.5 62 17 103/53 97 09/04/16 04:17 36.9 56 18 124/60 95 Room Air 09/04/16 04:00 Room Air 09/04/16 00:00 Room Air 09/03/16 23:39 36.5 55 18 110/65 95 Room Air 09/03/16 20:00 Room Air 09/03/16 19:20 36.9 55 20 135/68 94 Room Air 09/03/16 16:00 Room Air 09/03/16 15:30 36.5 55 18 124/73 96 Room Air 09/03/16 12:01 98 Room Air 09/03/16 11:08 36.6 52 18 131/81 98 Room Air Lab Results: Results Past 24 Hours Test 09/04/16 06:10 Range/Units White Blood Count 9.92 4.8-10.8 K/uL Red Blood Count 4.46 4.2-5.4 M/uL Hemoglobin 12.9 12.0-16.0 g/dL Hematocrit 39.2 37-47 % Mean Corpuscular Volume 87.9 80-100 fL Mean Corpuscular Hemoglobin 28.9 25-34 pg Mean Corpuscular Hemoglobin Concent 32.9 32-36 g/dl RDW Standard Deviation 50.4 36.4-46.3 fL RDW Coefficient of Variation 15.8 11.5-14.5 % Platelet Count 334 130-400 K/uL Mean Platelet Volume 9.2 7.4-10.4 fL Sodium Level 146 136-145 mmol/L Potassium Level 4.1 3.5-5.1 mmol/L Chloride Level 118 98-107 mmol/L Carbon Dioxide Level 20 21-32 mmol/L Anion Gap 8.0 3-11 mmol/L Blood Urea Nitrogen 26 7-18 mg/dl Creatinine 1.30 0.60-1.20 mg/dl Est Creatinine Clear Calc Drug Dose 54.9 ml/min Estimated GFR () 50.6 Estimated GFR (Non- 43.6 BUN/Creatinine Ratio 19.8 10-20 Random Glucose 85 70-99 mg/dl Calcium Level 8.1 8.5-10.1 mg/dl Thyroid Stimulating Hormone (TSH) 2.190 0.300-4.500 uIu/ml
[2016-09-04] MEDS ORDERED: POTA20TA16 PO (09:58)
[2016-09-04] MEDS ORDERED: CEPH500C2 PO (09:58)
[2016-09-04] MEDS ORDERED: MGNO400 PO (09:58)
--- NOTE | 2016-09-04 10:01 | Discharge Summary ---
Discharge Summary Date of Service September 04, 2016. Discharge Summary Admission Date: September 02, 2016 at 18:40 Discharge Date: September 04, 2016 Discharge Disposition: Home Principal Diagnosis: 1. ASHA on CKD 3 2. UTI 3. Metabolic encephalopathy secondary to above 4. Hypomagnesemia 5. Chronic loose stools Secondary Diagnoses/Problems: 1. Hx of bladder/Cervical C 2. HTN 3. Hx of seizures 4. Anxiety 5. GERD 6. Obesity Procedures: CXR IVF IV antibiotics Urine culture Consultations: None Pending Studies/Follow-Up: Instructions / Follow-Up Instructions / Follow-Up MEDICATION CHANGES: 1. New medication: Keflex 500 mg PO BID x 3 more days to complete course of 5 days for uncomplicated UTI 2. New medication: Magnesium oxide 400 mg PO BID 3. Potassium tablet decreased to daily from BID as we have discontinued chlorthalidone which can cause hypokalemia 4. Discontinue Chlorthalidone for high BP as your BP stable without it 5. Discontinue Celebrex and AVOID NSAIDS till further instructed. May use Tylenol PRN for pain. FOLLOW UP 1. Follow up with PCP in 7 days. Office will call you for appt date/time Medication Reconciliation New Medications: Cephalexin Monohydrate (Keflex) 500 Mg Cap 500 MG PO BID for 3 Days, #6 CAP Magnesium Oxide (Magnesium-Oxide) 400 Mg Tab 400 MG PO BID for 20 Days, #40 TAB Changed Medications: Potassium Ext Rel (Klor-Con) 20 Meq Tabcr 40 MEQ PO DAILY for 30 Days, #60 TAB (Changed from: BID) Continued Medications: Aspirin (Aspirin Ec) 81 Mg Tab 81 MG PO QAM Buspirone Hcl (Buspirone Hcl) 10 Mg Tab 10 MG PO BID, TAB Clopidogrel (Plavix) 75 Mg Tab 75 MG PO QAM, TAB Cyanocobalamin (Vitamin B12 500MCG) 500 Mcg Tab 1000 MCG PO QAM, TAB Levetiracetam (Keppra) 500 Mg Tab 500 MG PO BID, TAB Omeprazole (Prilosec) 20 Mg Cap 20 MG PO QAM Paroxetine (Paxil) 20 Mg Tab 20 MG PO QAM, TAB Simvastatin (Zocor) 20 Mg Tab 20 MG PO QAM, TAB Discontinued Medications: Celecoxib (Celebrex) 100 Mg Cap 2 CAP PO BID for 30 Days, #120 CAP Chlorthalidone (Chlorthalidone) 25 Mg Tab 25 MG PO QAM Admission Information HPI (per Admitting provider): Patient seen and examined. 61 year old female with PMHX of Bladder CA s/p cystectomy, COPD chronic tobacco abuse, anxiety, HTN, CKD stage 3 seizures and other problems listed below presents to the ED complaining of confusion beginning prior to arrival. Patient reports that this afternoon she started to not feel well. She felt confused like she was in a fog. She reports feeling generally weak and myalgias. She states she has nausea and two episodes of vomiting. She also reports a headache. She states this has happened before when she has had UTIs and she has previously become septic so she came to the ED for further evaluation. Patient has a history of bladder CA and straight caths at home. She states her urine looks dark. She also reports diarrhea for many years. She states she can have >10 episodes some days and takes Imodium very often however then she gets constipated and has to stop. She states today she has had five episodes of watery diarrhea. She denies fevers, chills, URI symptoms, chest pain, SOB, calf pain and edema. She denies recent abx use. She reports chronic Celebrex 200mg BID. She states she also will take 800mg of ibuprofen on top of that which she has done three times this week. In the ED VS are stable. WBC count is 14K, Lactate is <2, UA shows possible infection. Crea is 1.8 from baseline of 1. She received IVFs and Rocephin. She will be admitted for further workup and treatment. Physical Exam (per Admitting): General Appearance: + pertinent finding (WD/WN 61 year old female lying in bed in NAD with at bedside ) Head: normocephalic, atraumatic Eyes: PERRL, EOMI, sclerae normal ENT: hearing grossly normal, pharynx normal Neck: supple, no JVD Respiratory/Chest: chest non-tender, lungs clear, normal breath sounds, no respiratory distress, no accessory muscle use Cardiovascular: regular rate, rhythm, no edema, no gallop, no JVD, no murmur , normal peripheral pulses Abdomen/GI: normal bowel sounds, non tender, soft, + pertinent finding ( straight cath ostomey site right middle abdomen ) Back: normal inspection, no CVA tenderness, no muscle spasm Extremities/Musculoskelatal: no calf tenderness, normal capillary refill, no pedal edema Neurologic/Psych: alert, oriented x 3, + pertinent finding (oriented, thought process tangential, fixated on nicotine patch, no focal deficits ) Skin: normal color, warm/dry, no rash Lymphatic: no adenopathy Hospital Course 61 year old female who chronically straight caths presents to the ED complaining of confusion, generalized weakness, nausea/vomiting. States this is how she feels when she is getting a UTI. Urine darker than normal METABOLIC ENCEPHALOPATHY SECONDARY TO URINARY TRACT INFECTION : Resolved -Afebrile, lactate 1.1, WBC count 14K- normalized, BP stable -Of note leukocytosis has been noted for several years - patient has seen Heme/ onc who believe leukemoid reaction. -UA with signs of infection, culture - >[id number] gregorio strep, not enterococcus -Previous cultures with Klebsiella resistant to ampicillin -IV Rocephin - Day 2. Change to Keflex 500 mg PO BID x 3 more days to complete course of 5 days of antibiotics -IVF hydration - to be continued, but decrease rate to 75 cc/hour ACUTE RENAL INJURY ON CKD STAGE 3- Improved -Creatinine 1.8 baseline 1.2, near baseline --> 1.3 -Likely multifactorial secondary to dehydration, diuretic use, and NSAID use ( On celebrex scheduled and on top of it took Ibuprofen 800 mg PO TID 3 times a week prior to admission), chronic diarrhea - multifactorial. Mostly it is renal. -Hold Chlorthalidone, NSAIDs. Counseled about avoiding NSAIDs and prefer tylenol PRN for arthritic pain. -BMP to be done on 09/07/16. -IVF hydration - decrease rate to 75 cc/hour HYPOMAGNESEMIA - Resolved -1.2 on presentation, resolved -Will start on Mg Oxide 400 mg PO BID on a daily basis as has chronic issues with hypomagnesemia -Monitor outpatient DIARRHEA, CHRONIC -Chronic per patient -C.diff - pending, still not collected--> Diarrhea has improved. H/O BLADDER CA -s/p cystectomy with [place] pouch -continue to straight cath as prior to admission H/O TIA -continue Statin, ASA, Plavix HTN -stable -Hold chlorthalidone for ASHA and BP has been < 120/80 without being on any antihypertensive medications. So will discontinue it on discharge. -Follow up closely outpatient H/O SEIZURES -continue Keppra TOBACCO ABUSE -Cessation counseling given -Nicotine patch ordered ANXIETY -continue BuSpar, Paxil H/O CERVICAL CA -S/P hysterectomy GERD -continue PPI DVT PROPHYLAXIS: SQ heparin CODE STATUS: FULL CODE DISPO: Eager to be discharged home. As creatinine is improving and clinically improved, okay to discharge home with follow up BMP /PCP visit in 7 days. Okay to discharge home.. Total time spent on discharge = 35 minutes This includes examination of the patient, discharge planning, medication reconciliation, and communication with other providers. Discharge Instructions Discharge Goals Goal(s): Diagnostic testing, Therapeutic intervention Activity Recommendations Activity Limitations: resume your previous activity (as tolerated) . Instructions / Follow-Up Instructions / Follow-Up MEDICATION CHANGES: 1. New medication: Keflex 500 mg PO BID x 3 more days to complete course of 5 days for uncomplicated UTI 2. New medication: Magnesium oxide 400 mg PO BID 3. Potassium tablet decreased to daily from BID as we have discontinued chlorthalidone which can cause hypokalemia 4. Discontinue Chlorthalidone for high BP as your BP stable without it 5. Discontinue Celebrex and AVOID NSAIDS till further instructed. May use Tylenol PRN for pain. FOLLOW UP 1. Follow up with PCP in 7 days. Office will call you for appt date/time Current Hospital Diet Patient's current hospital diet: AHA Diet (Heart Healthy) Discharge Diet Recommended Diet: AHA Diet (Heart Healthy), Low Sodium Diet (2gm Na) Pending Studies Studies pending at discharge: no Medical Emergencies . Who to Call and When: Medical Emergencies: If at any time you feel your situation is an emergency, please call 911 immediately. . Non-Emergent Contact Non-Emergency issues call your: Primary Care Provider . . "Provider Documentation" section prepared by Tomeka Love. . VTE Core Measure Inpt VTE Proph given/why not?: Unfractionated heparin SQ
[2016-09-04 10:02] VITALS: BP 103/53; PULSE 62; TEMP 36.5; O2SAT 97
[2016-09-04 11:35] VITALS: BP 120/77; PULSE 54; TEMP 36.5; O2SAT 98
--- NOTE | 2016-09-04 12:31 | Urology Consultation ---
History General Date of Service: September 04, 2016. Primary Care Physician: Cyril Kaiser MD Pt seen a urologist before?: Yes History of Present Illness Patient seen and examined. 61 year old female with PMHX of Bladder CA s/p cystectomy, COPD chronic tobacco abuse, anxiety, HTN, CKD stage 3 seizures and other problems listed below presents to the ED complaining of confusion beginning prior to arrival. Patient reports that this afternoon she started to not feel well. She felt confused like she was in a fog. She reports feeling generally weak and myalgias. She states she has nausea and two episodes of vomiting. She also reports a headache. She states this has happened before when she has had UTIs and she has previously become septic so she came to the ED for further evaluation. Patient has a history of bladder CA and straight caths at home. She is s/p cystectomy and [place] Pouch. This was done 4 years ago at [facility]. She was admitted and treated with abx. Her WBC began to improve along with her Cr. Prior to discharge, she began to have trouble cathing her [place] Pouch. It was painful. She states that a few years ago she had similar trouble cathing and required the pouch to be dilated. She currently uses a 14 cath. Today the nurse attempted to cath, it was painful, and close to 900cc of urine drained. At the bedside I was able to place a 14 F alvarado and leave it in the pouch. Urine Cx from 09/02 showed strep. Laboratory Labs were reviewed and are within normal limits unless listed below. Labs are available in the chart and at [facility] Problem List Medical Problems: (1) Acute renal failure Status: Acute (2) Anxiety State Nos Status: Chronic (3) Confusion Status: Acute (4) Depression Status: Chronic (5) Esophageal Reflux Status: Chronic (6) HTN (hypertension) Status: Chronic (7) Hyperlipidemia Nec/Nos Status: Chronic (8) Hypomagnesemia Status: Acute (9) Seizure Status: Chronic (10) Sepsis Status: Acute (11) Urinary tract infection Status: Acute Surgical Problems: (1) Urinostomy Status Nec Status: Chronic Past History cancer Past Surgical History: other Family History FHx: cancer FHx: lung disease Hypertension Social History Hx Tobacco Use In Past Year?: Yes (SMOKES 1 PPD X 30 YRS) Marital status: Housing status: lives with family Occupation status: retired Immunizations History of Influenza Vaccine: Yes History of Tetanus Vaccine?: UTD History of Pneumococcal: No History of Hepatitis B Vaccine: No Allergies Coded Allergies: No Known Drug Allergy (Verified Allergy, Unknown, NONE, 09/02/16) Medications Home Medications: Home Meds and Scripts Medications Dose Route/Sig Max Daily Dose Days Date Category Magnesium-Oxide (Magnesium Oxide) 400 Mg Tab 400 Mg PO BID 20 09/04/16 Rx Keflex (Cephalexin Monohydrate) 500 Mg Cap 500 Mg PO BID 3 09/04/16 Rx Klor-Con (Potassium Chloride) 20 Meq Tabcr 40 Meq PO DAILY 30 09/04/16 Rx Zocor (Simvastatin) 20 Mg Tab 20 Mg PO QAM 01/11/16 Reported Celebrex (Celecoxib) 100 Mg Cap 2 Cap PO BID 30 01/11/16 Reported Vitamin B12 500MCG (Cyanocobalamin) 500 Mcg Tab 1,000 Mcg PO QAM 11/23/15 Reported Paxil (Paroxetine HCl) 20 Mg Tab 20 Mg PO QAM 11/23/15 Reported Buspirone Hcl 10 Mg Tab 10 Mg PO BID 11/23/15 Reported Keppra (Levetiracetam) 500 Mg Tab 500 Mg PO BID 11/03/14 Reported Aspirin Ec (Aspirin) 81 Mg Tab 81 Mg PO QAM 04/08/14 Reported Plavix (Clopidogrel Bisulfate) 75 Mg Tab 75 Mg PO QAM 04/08/14 Reported Prilosec (Omeprazole) 20 Mg Cap 20 Mg PO QAM 02/12/14 Reported Chlorthalidone 25 Mg Tab 25 Mg PO QAM 02/12/14 Reported Inpatient Medications: Current Inpatient Medications Medications (Trade) Dose Ordered Sig/Sujit Route Start Time Stop Time Status Last Admin Dose Admin Nicotine (Nicoderm Cq 14MG Patch) 1 patch QAM TD 09/02/16 19:00 10/02/16 18:59 09/04/16 07:26 1 PATCH Miscellaneous (Remove Nicoderm Patch) 1 ea HS N/A 09/02/16 21:00 10/02/16 20:59 09/03/16 21:06 1 EA Heparin Sodium (Porcine) (Heparin Sq 5000 Unit/0.5ml) 5,000 unit Q8 SQ 09/02/16 22:00 10/02/16 21:59 09/02/16 22:18 5,000 UNIT Acetaminophen (Tylenol Tab) 650 mg Q4H PRN PO 09/02/16 18:45 10/02/16 18:44 09/03/16 16:04 650 MG Ondansetron HCl 4 mg 4 mg Q6H PRN IV 09/02/16 18:45 10/02/16 18:44 Sodium Chloride 1,000 ml @ 75 mls/hr [id number] IV 09/02/16 20:30 10/02/16 20:29 09/04/16 02:15 75 MLS/HR Ceftriaxone Sodium/Dextrose (Rocephin Inj/ Dextrose Add-Morris 50ML) 50 ml @ 100 mls/hr DAILY@1800 IV 09/03/16 18:00 09/13/16 17:59 09/03/16 18:41 100 MLS/HR Aspirin (Ecotrin Tab) 81 mg QAM PO 09/03/16 09:00 10/03/16 08:59 09/04/16 07:24 81 MG Clopidogrel Bisulfate (plAVix TAB) 75 mg QAM PO 09/03/16 09:00 10/03/16 08:59 09/04/16 07:24 75 MG Cyanocobalamin (Vitamin B-12 Tab) 1,000 mcg QAM PO 09/03/16 09:00 10/03/16 08:59 09/04/16 07:25 1,000 MCG Levetiracetam (Keppra Tab) 500 mg BID PO 09/02/16 21:00 10/02/16 20:59 09/04/16 07:25 500 MG Paroxetine HCl (pAXil TAB) 20 mg QAM PO 09/03/16 09:00 10/03/16 08:59 09/04/16 07:25 20 MG Potassium Chloride (Klor-Con Tab) 40 meq BID PO 09/02/16 21:00 10/02/16 20:59 09/04/16 07:25 40 MEQ Simvastatin (Zocor Tab) 20 mg QAM PO 09/03/16 09:00 10/03/16 08:59 09/04/16 07:25 20 MG Buspirone HCl (Buspar Tab) 10 mg BID PO 09/02/16 21:00 10/02/16 20:59 09/04/16 07:25 10 MG Pantoprazole Sodium (Protonix Tab) 40 mg QAM PO 09/03/16 09:00 10/03/16 08:59 09/04/16 07:24 40 MG Magnesium Chloride (Slow-Mag Tab) 64 mg BID PO 09/02/16 21:00 10/02/16 20:59 09/04/16 07:26 64 MG Review of Systems Review of Systems Constitutional: + see HPI Eyes: + see HPI Neurological: + see HPI Endocrine: + see HPI Gastrointestinal: + see HPI Cardiovascular: + see HPI Respiratory: + see HPI Skin: + see HPI Musculoskeletal: + see HPI Blood / Lymphatic: + see HPI Ears / Nose / Throat: + see HPI Psychologic / Mental: + see HPI Female : + see HPI All Other Systems: Reviewed and Negative Physical Exam Vital Signs: Vital Signs Past 12 Hours Date Time Temp Pulse Resp B/P Pulse Ox O2 Delivery O2 Flow Rate FiO2 09/04/16 11:35 36.5 54 18 120/77 98 Room Air 09/04/16 10:02 36.5 62 17 97 Room Air 09/04/16 08:00 97 Room Air 09/04/16 07:28 36.5 62 17 103/53 97 09/04/16 04:17 36.9 56 18 124/60 95 Room Air 09/04/16 04:00 Room Air Physical Exam: General Appearance: WD/WN, no apparent distress ENT: normal ENT inspection, hearing grossly normal, TMs normal Neck: supple Respiratory/Chest: chest non-tender, lungs clear, normal breath sounds Cardiovascular: regular rate, rhythm, no edema Gastrointestinal: Abdomen: normal abdomen Incision: normal incision Extremities: normal range of motion, non-tender, normal inspection 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 Scar tissue present. Tighter area at opening. Assessment & Plan Assessment & Plan (1) Urinary tract infection Status: Acute (2) Bladder cancer Status: Chronic Pt has a Ana Pouch. This is a nicky-bladder made of colon. It contains a tract in which she is able to catheterize and empty the urine from with-in the pouch. I suspect over time she has not been able to empty the pouch adequately , hence the drainage of 900cc at one time. It is not uncommon to have issue with the catheterizeable channels. Stricture. Stenosis. Valve Failure. Etc. It appears she is having more of these issues. I was able to place a 14-F alvarado at the bedside. I put 7cc of water in the balloon and attached a alvarado plug. She should leave this alvarado in place for 2-3 days to allow the tract to heal. She can f/u as an outpatient at that time for alvarado removal and to test the tract once again. Eventually, I suspect it will need revised with the Urologist in [place].
[2016-09-04] MEDS ORDERED: METR-163 PO (15:10)
--- NOTE | 2016-09-06 23:58 | EDITING REQUIRED CODING QUERY ---
CODING QUERY To promote full compliance with coding requirements relating to patient care, provider participation is requested in all cases of motorboat mechanic uncertainty. Please assist us with the question(s) below: Coding Question(s): Dr. Love, Please clarify if the patient's UTI was a: ( ) complication (infection) of the cystostomy ( + ) complication of the straight cath procedures ( ) malfunction of the cystostomy ( ) other, please explain Physician's Response(s): Thank you for your time, VERONIQUE Ag, PAPER NOVELTY MAKER
[2016-10-03] MEDS ORDERED: AMPI500C9 PO (08:39)
[2016-10-09] MEDS ORDERED: ASPI81TA28 PO (10:48)
[2016-10-09] MEDS ORDERED: BUSP-8 PO (11:03)
[2016-10-09] MEDS ORDERED: PARO1TAB27 PO (11:03)
[2016-10-09] MEDS ORDERED: LEVE500T13 PO (15:29)
[2016-10-09] MEDS ORDERED: CYAN100020 PO (15:36)
[2016-10-09] MEDS ORDERED: POTA1TAB97 PO (15:36)
[2016-10-09] MEDS ORDERED: MELO15TA10 PO (15:36)
[2016-10-09] MEDS ORDERED: SIMV20TA5 PO (15:36)
[2016-10-09] MEDS ORDERED: CLOP1TAB15 PO (15:36)
[2016-10-09] MEDS ORDERED: OMEP20CA9 PO (17:41)
[2016-10-17] MEDS ORDERED: VANC5CAP PO (16:40)
== END 2016-09-04 15:19 | disposition home or self-care (01) | DRG 698 ==
LOC: ENRESERVTM → ENRESERVDT → C.EDB 15:51 → C.MED 18:40
PROVIDERS: ADMIT Hospitalist; ATTEND Internal Medicine
DX: T83.518A Infection and inflammatory reaction due to other urinary catheter, initial encounter (principal); G93.41 Metabolic encephalopathy; N17.9 Acute kidney failure, unspecified; Z68.41 Body mass index [BMI] 40.0-44.9, adult; N39.0 Urinary tract infection, site not specified; N99.511 Cystostomy infection; Y73.2 Prosthetic and other implants, materials and accessory gastroenterology and urology devices associated with adverse incidents; N99.512 Cystostomy malfunction; B95.0 Streptococcus, group A, as the cause of diseases classified elsewhere; T39.395A Adverse effect of other nonsteroidal anti-inflammatory drugs [NSAID], initial encounter; T50.2X5A Adverse effect of carbonic-anhydrase inhibitors, benzothiadiazides and other diuretics, initial encounter; E86.0 Dehydration; E83.42 Hypomagnesemia; K52.9 Noninfective gastroenteritis and colitis, unspecified; I12.9 Hypertensive chronic kidney disease with stage 1 through stage 4 chronic kidney disease, or unspecified chronic kidney disease; N18.3 Chronic kidney disease, stage 3 (moderate); R56.9 Unspecified convulsions; K21.9 Gastro-esophageal reflux disease without esophagitis; F41.9 Anxiety disorder, unspecified; F17.210 Nicotine dependence, cigarettes, uncomplicated; E66.9 Obesity, unspecified; Z85.51 Personal history of malignant neoplasm of bladder; Z90.6 Acquired absence of other parts of urinary tract; Z86.73 Personal history of transient ischemic attack (TIA), and cerebral infarction without residual deficits; Z96.659 Presence of unspecified artificial knee joint; Z79.1 Long term (current) use of non-steroidal anti-inflammatories (NSAID); Z79.02 Long term (current) use of antithrombotics/antiplatelets; Z79.82 Long term (current) use of aspirin; Z79.899 Other long term (current) drug therapy

== ENCOUNTER → 2016-10-03 | Day surgery (SDC) | payer OTHER ==
[2016-09-29 15:37] VITALS: Ht 165.1 cm; Wt 106.4 kg
[~2016-10-03] VITALS: Ht 165.1 cm; Wt 106.4 kg
[~2016-10-03] MED LIST changes: +AMPI500C9 PO; +ASPI81TA28 PO; +ATROPINE SULFATE 0.1 MG/ML 5ML SYR IV PRN; +BUSP-8 PO; +CHOL4POW4 PO; -CLB100 PO; +CLS1 PO; +CYAN100020 PO; -CYAN500T13 PO; +EpHEDrine SULFATE INJ 50 MG/ML AMP IV PRN; +FENTANYL CITRATE INJ 50 MCG/1 ML 2 ML VIAL ONE; +FLX5 PO; -HYG25 PO; +LEVE500T13 PO; +LIDOCAINE HCL 2% 2 ML VIAL (20MG/ML) ONE; +MELO15TA10 PO; +OMEP20CA9 PO; +ONDANSETRON INJ 2 MG/ML 2 ML VIAL IV PRN; +PARO1TAB27 PO; +POTA1TAB97 PO; -POTA20TA16 PO; +PROPOFOL IV EMULSION 10 MG/ML 20 ML VIAL IV ONE; -SIMV20TA2 PO; +SIMV20TA5 PO; +VANC5CAP PO
[2016-10-03 08:44] VITALS: TEMP 36.7
--- NOTE | 2016-10-03 09:19 | Endo History and Physical ---
History & Physical Date of Service: Oct 03, 2016. Chief Complaint: screening Referring Physician: Dr. Cyril Kaiser History of Present Illness History of diarrhea, for surveillance colonoscopy today. Past Medical History Arthritis, Gastrointestinal Disorder, Anxiety, Reflux, Seizure Disorder, Cancer , High Cholesterol, Sleep Apnea, Hypertension, COPD, CVA/TIA, Depression Past Surgical History Hx Cardiac Surgery: No Hx Internal Defibrillator: No Hx Pacemaker: No Hx Abdominal Surgery: Yes (HIATAL HERNIA REPAIR WITH MESH) Hx of Implantable Prosthesis: No Hx Post-Op Nausea and Vomiting: Yes Hx Cancer Surgery: Yes (BLADDER REMOVAL AND BALJIT POUCH FORM, MOHS ON NOSE, JACIEL) Hx Thoracic Surgery: No Hx Orthopedic: Yes (LEFT TKA) Hx Urinary Tract Surgery: No Family History None Social History Smoking Status: Current Every Day Smoker Hx Substance Use: No Hx Alcohol Use: No Allergies Coded Allergies: No Known Drug Allergy (Verified Allergy, Unknown, NONE, 09/29/16) Current Medications Reported Home Medications Medications Dose Route/Sig Max Daily Dose Days Date Category Ampicillin 500 Mg Cap 1 Cap PO TID 7 10/03/16 Reported K-Tab (Potassium Chloride) 20 Meq Tab 1 Tab PO BID 09/29/16 Reported Plavix (Clopidogrel Bisulfate) 75 Mg Tab 75 Mg PO QAM 09/29/16 Reported Zocor (Simvastatin) 20 Mg Tab 20 Mg PO HS 09/29/16 Reported Mobic (Meloxicam) 15 Mg Tab 15 Mg PO QAM 09/29/16 Reported Vitamin B12 (Cyanocobalamin) 1,000 Mcg Tab 1 Tab PO QAM 09/29/16 Reported Paxil (Paroxetine HCl) 20 Mg Tab 20 Mg PO QAM 11/23/15 Reported Buspirone Hcl 10 Mg Tab 10 Mg PO BID 11/23/15 Reported Keppra (Levetiracetam) 500 Mg Tab 500 Mg PO HS 11/03/14 Reported Aspirin Ec (Aspirin) 81 Mg Tab 81 Mg PO QAM 04/08/14 Reported Prilosec (Omeprazole) 20 Mg Cap 20 Mg PO QAM 02/12/14 Reported Vital Signs Weight (Kilograms): 106.36 Height (Feet): 5 Height (Inches): 5 Date Time Temp Pulse Resp B/P (MAP) Pulse Ox O2 Delivery O2 Flow Rate FiO2 10/03/16 08:44 36.7 72 20 151/62 (91) 95 Room Air Physical Exam General Appearance: no apparent distress Respiratory/Chest: Auscultation: breath sounds normal Cardiovascular: Heart Auscultation: RRR Abdomen: Inspection & Palpation: soft Assessment and Plan Colonoscopy for evaluation of chronic diarrhea. We have discussed the risks to include bleeding, infection, perforation, and pain.
--- NOTE | 2016-10-03 09:53 | Discharge Instructions ---
Endoscopy Patient Instructions Date / Procedure(s) Performed Oct 03, 2016. Colonoscopy Allergy Information Coded Allergies: No Known Drug Allergy (Verified Allergy, Unknown, NONE, 09/29/16) Discharge Date / Findings Oct 03, 2016. Inflammatory changes of the rectosigmoid colon Medication Instructions Stopped Medication(s): took ASA,Plavix,Mobic yesterday Reported Home Medications Medications Dose Route/Sig Max Daily Dose Days Date Category Ampicillin 500 Mg Cap 1 Cap PO TID 7 10/03/16 Reported K-Tab (Potassium Chloride) 20 Meq Tab 1 Tab PO BID 09/29/16 Reported Plavix (Clopidogrel Bisulfate) 75 Mg Tab 75 Mg PO QAM 09/29/16 Reported Zocor (Simvastatin) 20 Mg Tab 20 Mg PO HS 09/29/16 Reported Mobic (Meloxicam) 15 Mg Tab 15 Mg PO QAM 09/29/16 Reported Vitamin B12 (Cyanocobalamin) 1,000 Mcg Tab 1 Tab PO QAM 09/29/16 Reported Paxil (Paroxetine HCl) 20 Mg Tab 20 Mg PO QAM 11/23/15 Reported Buspirone Hcl 10 Mg Tab 10 Mg PO BID 11/23/15 Reported Keppra (Levetiracetam) 500 Mg Tab 500 Mg PO HS 11/03/14 Reported Aspirin Ec (Aspirin) 81 Mg Tab 81 Mg PO QAM 04/08/14 Reported Prilosec (Omeprazole) 20 Mg Cap 20 Mg PO QAM 02/12/14 Reported Provider Instructions Activity Restrictions - No exercising or heavy lifting for 24 hours. - Do not drink alcohol the day of the procedure. - Do not drive a car or operate machinery until the day after the procedure. - Do not make any important decisions or sign important papers in 24 hours after the procedure. Following Day: - Return to full activity which may include returning to work/school. Diet Start your diet with liquids and light foods (jello, soup, juice, toast). Then eat your usual diet if not nauseated. Treatment For Common After Affects For mild abdominal pain, bloating, or excessive gas: - Rest - Eat lightly - Lie on right side Follow-Up Information Follow-up with Dr. Cyril Kaiser as scheduled Await pathology results Anesthesia Information What You Should Know You have had a procedure that required some medicine to reduce anxiety and discomfort. This treatment is called moderate sedation. After receiving the treatment, you may be sleepy, but you will be able to breathe on your own. The effects of the treatment may last for several hours. Follow these instructions along with Activity/Diet recommendations noted above: * Do NOT do anything where dizziness or clumsiness would be dangerous. * Rest quietly at home today, then you can be up and about tomorrow. * Have a responsible person stay with you the rest of today. * You may have had an I.V. today. If so, you may take the dressing off later today. Recommendations Call your doctor if: * Trouble breathing * Continuous vomiting for more than 24 hours * Temperature above 101 degrees * Severe abdominal pain or bloating * Pain not relieved by pain medicine ordered * There is increased drainage or redness from any incision * A large amount of rectal bleeding greater than 2-3 tablespoons. (If you had a polyp/s removed or have hemorrhoids, a small amount of blood - from the rectum is to be expected.) * You have any unanswered questions or concerns. IN THE EVENT OF A SERIOUS EMERGENCY, GO TO THE NEAREST EMERGENCY ROOM Your discharge instructions were prepared by provider Claire Milton. Patient Instructions Signature Page Renata Gordon Patient (or Guardian) Signature/Date: I have read and understand the instructions given to me by my caregivers. Caregiver/RN/Doctor Signature/Date: The above-named patient and/or guardian has received patient instructions on this date. + Original Patient Signature Page (only) stays with chart. Please make copy for patient.
--- NOTE | 2016-10-03 09:56 | GI REPORT ---
Procedure Date: 10/03/2016 9:14 AM Procedure: Colonoscopy Indications: Screening for colorectal malignant neoplasm, Incidental diarrhea noted Medicines: Monitored Anesthesia Care Complications: No immediate complications. Estimated blood loss: Minimal. Estimated Blood Loss: Estimated blood loss was minimal. Procedure: Pre-Anesthesia Assessment: - Prior to the procedure, a History and Physical was performed, and patient medications, allergies and sensitivities were reviewed. The patient's tolerance of previous anesthesia was reviewed. - The risks and benefits of the procedure and the sedation options and risks were discussed with the patient. All questions were answered and informed consent was obtained. - Patient identification and proposed procedure were verified prior to the procedure by the physician, the nurse and the hedis coordinator. The procedure was verified in the procedure room. - Pre-procedure physical examination revealed no contraindications to sedation. - ASA Grade Assessment: IV - A patient with severe systemic disease that is a constant threat to life. - After reviewing the risks and benefits, the patient was deemed in satisfactory condition to undergo the procedure. - The anesthesia plan was to use monitored anesthesia care (MAC). - Immediately prior to administration of medications, the patient was re-assessed for adequacy to receive sedatives. - The heart rate, respiratory rate, oxygen saturations, blood pressure, adequacy of pulmonary ventilation, and response to care were monitored throughout the procedure. - The physical status of the patient was re-assessed after the procedure. After I obtained informed consent, the scope was passed under direct vision. Throughout the procedure, the patient's blood pressure, pulse, and oxygen saturations were monitored continuously. The Scope was introduced through the anus and advanced to the cecum, identified by appendiceal orifice and ileocecal valve. The colonoscopy was performed without difficulty. The patient tolerated the procedure well. The quality of the bowel preparation was good. Findings: The perianal and digital rectal examinations were normal. Pertinent negatives include normal sphincter tone. The descending colon, transverse colon, ascending colon and cecum appeared normal. Biopsies for histology were taken with a cold forceps for evaluation of microscopic colitis. Fluid aspiration was performed through the scope suction channel. Sample(s) were sent for bacterial cultures, Clostridium difficile and ova and parasites. Diffuse mild inflammation characterized by congestion (edema), erythema and granularity was found in the recto-sigmoid colon. Biopsies were taken with a cold forceps for histology. Estimated blood loss was minimal. Internal hemorrhoids were found during retroflexion. The hemorrhoids were mild. Impression: - The descending colon, transverse colon, ascending colon and cecum are normal. Biopsied. Fluid aspiration performed. - Diffuse mild inflammation was found in the recto-sigmoid colon secondary to left-sided colitis. Biopsied. Recommendation: - Discharge patient to home (ambulatory). - Advance diet as tolerated today. - Await pathology results. - Repeat colonoscopy in 5 years for screening purposes. Claire Milton D.O. Claire Milton, 10/03/2016 9:56:18 AM This report has been signed electronically. Note Initiated On: 10/03/2016 9:14 AM I attest to the content of the Intraoperative Record and orders documented therein, exceptions below
--- NOTE | 2016-10-03 10:00 | Anesthesiology Progress Note ---
Anesthesia Post Op Note Date & Time Oct 03, 2016 at 10:00 Vital Signs Pain Intensity: 0 Vital Signs Past 12 Hours Date Time Temp Pulse Resp B/P (MAP) Pulse Ox O2 Delivery O2 Flow Rate FiO2 10/03/16 08:44 36.7 72 20 151/62 (91) 95 Room Air Notes Mental Status: alert / awake / arousable, participated in evaluation Pt Amnestic to Procedure: Yes Nausea / Vomiting: adequately controlled Pain: adequately controlled Airway Patency, RR, SpO2: stable & adequate BP & HR: stable & adequate Hydration State: stable & adequate Anesthetic Complications: no major complications apparent
[2016-10-03 10:28] VITALS: BP 117/73; PULSE 61; O2SAT 96
[2016-10-05 22:56] LABS: CRYPTOSPORIDIUM AG TC 37213 NOT DETECTED (NOT DETECTED); ISOSPORA+CYCLOSPORA NOT DETECTED (NOT DETECTED); O&P GIARDIA AG NOT DETECTED (NOT DETECTED)
== END | disposition home or self-care (01) ==
LOC: C.GI 08:21
PROVIDERS: ATTEND Internal Medicine Gastroenterology
DX: Z12.11 Encounter for screening for malignant neoplasm of colon (principal); R19.7 Diarrhea, unspecified; I10 Essential (primary) hypertension; F32.9 Major depressive disorder, single episode, unspecified; J44.9 Chronic obstructive pulmonary disease, unspecified; E78.00 Pure hypercholesterolemia, unspecified; G40.909 Epilepsy, unspecified, not intractable, without status epilepticus; G47.33 Obstructive sleep apnea (adult) (pediatric); E66.9 Obesity, unspecified; Z68.35 Body mass index [BMI] 35.0-35.9, adult; F17.200 Nicotine dependence, unspecified, uncomplicated; Z98.890 Other specified postprocedural states; Z96.652 Presence of left artificial knee joint; Z79.899 Other long term (current) drug therapy; Z85.51 Personal history of malignant neoplasm of bladder; Z86.73 Personal history of transient ischemic attack (TIA), and cerebral infarction without residual deficits

== ENCOUNTER 2016-10-09 18:51 | Inpatient (IN) | payer OTHER ==
[~2016-10-09] VITALS: Ht 165.1 cm; Wt 109.3 kg
[~2016-10-09 18:51] MED LIST changes: -ATROPINE SULFATE 0.1 MG/ML 5ML SYR IV PRN; -CHOL4POW4 PO; -CLS1 PO; -EpHEDrine SULFATE INJ 50 MG/ML AMP IV PRN; -FENTANYL CITRATE INJ 50 MCG/1 ML 2 ML VIAL ONE; -FLX5 PO; -LIDOCAINE HCL 2% 2 ML VIAL (20MG/ML) ONE; -ONDANSETRON INJ 2 MG/ML 2 ML VIAL IV PRN; -PROPOFOL IV EMULSION 10 MG/ML 20 ML VIAL IV ONE; -VANC5CAP PO
[2016-10-09] MEDS ORDERED: SODIUM CHLORIDE 0.9% 1000ML 1,000 ML IV STA (19:05)
[2016-10-09] MEDS ORDERED: ONDANSETRON INJ 2 MG/ML 2 ML VIAL IV STA ×2 (19:05→20:08)
--- NOTE | 2016-10-09 19:21 | DIAGNOSTIC IMAGING REPORT ---
CHEST ONE VIEW PORTABLE CLINICAL HISTORY: ABDOMINAL PAIN/GI pain COMPARISON STUDY: 09/02/2016 FINDINGS: The bones soft tissues and hemidiaphragms are normal. The cardiomediastinal silhouette is normal. The lungs are clear. The pulmonary vasculature is normal. IMPRESSION: Negative chest. Electronically signed by: Gilles Parson M.D. 10/09/2016 7:20 PM Dictated Date/Time: 10/09/2016 7:19 PM
[2016-10-09 19:22] LABS: BASO % 0.1 %; BASO ABS # 0.02 K/uL (0-0.2); COMPLETE YES; EOS % 0.8 %; HEMATOCRIT 43.1 % (37-47); IG% 0.7 %; LYMPH % 11.5 %; MEAN CELL VOLUME 87.8 fL (80-100); MEAN CORPUSCULAR HEMOGLOBIN 29.5 pg (25-34); MEAN CORPUSCULAR HGB CONC 33.6 g/dl (32-36); MEAN PLATELET VOLUME 9.2 fL (7.4-10.4); MONO % 6.1 %; NEUT % 80.8 %; PLATELET COUNT 411 K/uL (130-400); RED BLOOD COUNT 4.91 M/uL (4.2-5.4)
[2016-10-09 19:33] LABS: INR 1.2 (0.9-1.1); PARTIAL THROMBOPLASTIN RATIO 1.1; PROTHROMBIN TIME (PATIENT) 12.8 SECONDS (9.0-12.0)
[2016-10-09 19:54] LABS: ALKALINE PHOSPHATASE 122 U/L (45-117); ALT/SGPT 21 U/L (12-78); AST/SGOT 18 U/L (15-37); BLOOD UREA NITROGEN 13 mg/dl (7-18); BUN/CREATININE RATIO 9.3 (10-20); CALCIUM 6.5 mg/dl (8.5-10.1); CARBON DIOXIDE 23 mmol/L (21-32); CHLORIDE 107 mmol/L (98-107); GLUCOSE 107 mg/dl (70-99); POTASSIUM 2.6 mmol/L (3.5-5.1); SODIUM 143 mmol/L (136-145)
[2016-10-09 19:56] LABS: MAGNESIUM 0.6 mg/dl (1.8-2.4)
[2016-10-09] MEDS ORDERED: MAGNESIUM SULFATE 1GM / D5W 1 GM BAG IV STA (20:03)
[2016-10-09] MEDS ORDERED: CALCIUM GLUCONATE 10% 10 ML VIAL IV STA (20:06)
[2016-10-09] MEDS ORDERED: POTASSIUM CHLORIDE 10 MEQ TABCR PO STA (20:07)
[2016-10-09 20:11] LABS: URINE APPEARANCE TURBID (CLEAR); URINE BILIRUBIN NEG (NEG); URINE COLOR DK YELLOW; URINE EPITHELIAL CELL AUTO >30 /lpf (0-5); URINE NITRITE POS (NEG); URINE SPECIFIC GRAVITY 1.012 (1.000-1.030); UROBILINOGEN NEG (NEG); ZZUR CULT IF INDIC CLEAN CATCH YES
[2016-10-09 20:12] LABS: MANUAL MICROSCOPIC REQUIRED? NO; REVIEW REQ? YES
--- NOTE | 2016-10-09 20:13 | EMERGENCY ROOM VISIT NOTE ---
History Report prepared by Sherry: Roberto Gtz Under the Supervision of: Dr. Kalia Zhang D.O. First contact with patient: 18:59 Chief Complaint: ILLNESS Stated Complaint: SICK,NUMB ALL OVER History of Present Illness The patient is a 61 year old female who presents to the Emergency Room with complaints of persistent diarrhea for the past three weeks. The patient was admitted to the hospital for a UTI and diagnosed with C. Diff. She was discharged on Flagyl which she finished over one week ago. The patient's diarrhea has not improved. She also complains of nausea, vomiting, and dry heaving. The patient has numbness all over her body, which she describes as "feeling like there is something crawling all over her." The patient feels dehydrated. The patient notes that she has a history of recurrent UTIs and is on antibiotics frequently. She follows up with Dr. Kaiser. The patient had a colonoscopy since being discharged from the hospital. The patient is s/p cystectomy. Source of History: patient Onset: three weeks ago Position: other (GI) Quality: other (diarrhea) Timing: other (persistent) Associated Symptoms: + nausea, + vomiting, + numbness Review of Systems See HPI for pertinent positives & negatives. A total of 10 systems reviewed and were otherwise negative. Past Medical & Surgical Medical Problems: (1) Anxiety (2) Anxiety State Nos (3) Bladder cancer (4) Bladder cancer (5) Cervical cancer (6) CKD (chronic kidney disease), stage III (7) COPD (chronic obstructive pulmonary disease) (8) Depression (9) Encephalopathy (10) Esophageal Reflux (11) GERD (gastroesophageal reflux disease) (12) HTN (hypertension) (13) HTN (hypertension) (14) Hyperlipidemia Nec/Nos (15) Left knee DJD (16) Seizure (17) Seizure (18) TIA (transient ischemic attack) (19) Tobacco abuse (20) UTI (urinary tract infection) Surgical Problems: (1) Bladder Replacement Nec (2) H/O hernia repair (3) H/O total cystectomy (4) H/O: hysterectomy (5) H/O: hysterectomy (6) History of salpingo-oophorectomy (7) History of total knee arthroplasty (8) Hx of total cystectomy (9) Urinostomy Status Nec Family History FHx: cancer FHx: lung disease Hypertension Social History Smoking Status: Current Every Day Smoker Alcohol Use: none Marital Status: Housing Status: lives with family Occupation Status: retired Current/Historical Medications Scheduled Ampicillin (Ampicillin), 1 CAP PO TID Aspirin (Aspirin Ec), 81 MG PO QAM Buspirone Hcl (Buspirone Hcl), 10 MG PO BID Clopidogrel (Plavix), 75 MG PO QAM Cyanocobalamin (Vitamin B12), 1 TAB PO QAM Levetiracetam (Keppra), 500 MG PO HS Meloxicam (Mobic), 15 MG PO QAM Omeprazole (Prilosec), 20 MG PO QAM Paroxetine (Paxil), 20 MG PO QAM Potassium Chloride (K-Tab), 1 TAB PO BID Simvastatin (Zocor), 20 MG PO HS Allergies Coded Allergies: No Known Drug Allergy (Verified Allergy, Unknown, NONE, 09/29/16) Physical Exam Vital Signs Date Time Temp Pulse Resp B/P (MAP) Pulse Ox O2 Delivery O2 Flow Rate FiO2 10/09/16 20:05 82 20 123/77 99 Room Air 10/09/16 18:53 36.7 87 20 128/87 94 Room Air Physical Exam CONSTITUTIONAL/VITAL SIGNS: Reviewed / noted above. GENERAL: Non-toxic in appearance. INTEGUMENTARY: Warm, dry, and [place]. HEAD: Normocephalic. EYES: without scleral icterus or trauma. ENT/OROPHARYNX: clear and moist. LYMPHADENOPATHY/NECK: Is supple without lymphadenopathy or meningismus. RESPIRATORY: Lungs clear and equal. CARDIOVASCULAR: Regular rate and rhythm. GI/ABDOMEN: Soft and nontender. No organomegaly or pulsatile mass. No rebound or guarding. Normal bowel sounds. EXTREMITIES: Warm and well perfused. BACK: No CVA tenderness. NEUROLOGICAL: Intact without focal deficits. PSYCHIATRIC: normal affect. MUSCULOSKELETAL: Normally developed with good muscle tone. Medical Decision & Procedures ER Provider Diagnostic Interpretation: X ray results and stated below per my interpretation and radiology interpretation. CHEST ONE VIEW PORTABLE CLINICAL HISTORY: ABDOMINAL PAIN/GI pain COMPARISON STUDY: 09/02/2016 FINDINGS: The bones soft tissues and hemidiaphragms are normal. The cardiomediastinal silhouette is normal. The lungs are clear. The pulmonary vasculature is normal. IMPRESSION: Negative chest. Electronically signed by: Gilles Parson M.D. 10/09/2016 7:20 PM Dictated Date/Time: 10/09/2016 7:19 PM Laboratory Results 10/09/16 19:10 Red Blood Count 4.91, Mean Corpuscular Volume 87.8, Mean Corpuscular Hemoglobin 29.5, Mean Corpuscular Hemoglobin Concent 33.6, Mean Platelet Volume 9.2, Neutrophils (%) (Auto) 80.8, Lymphocytes (%) (Auto) 11.5, Monocytes (%) (Auto) 6.1, Eosinophils (%) (Auto) 0.8, Basophils (%) (Auto) 0.1, Neutrophils # (Auto) 13.32, Lymphocytes # (Auto) 1.90, Monocytes # (Auto) 1.01, Eosinophils # (Auto) 0.14, Basophils # (Auto) 0.02 10/09/16 19:10 Test 10/09/16 19:10 10/09/16 19:55 White Blood Count 16.50 K/uL (4.8-10.8) Red Blood Count 4.91 M/uL (4.2-5.4) Hemoglobin 14.5 g/dL (12.0-16.0) Hematocrit 43.1 % (37-47) Mean Corpuscular Volume 87.8 fL (80-100) Mean Corpuscular Hemoglobin 29.5 pg (25-34) Mean Corpuscular Hemoglobin Concent 33.6 g/dl (32-36) Platelet Count 411 K/uL (130-400) Mean Platelet Volume 9.2 fL (7.4-10.4) Neutrophils (%) (Auto) 80.8 % Lymphocytes (%) (Auto) 11.5 % Monocytes (%) (Auto) 6.1 % Eosinophils (%) (Auto) 0.8 % Basophils (%) (Auto) 0.1 % Neutrophils # (Auto) 13.32 K/uL (1.4-6.5) Lymphocytes # (Auto) 1.90 K/uL (1.2-3.4) Monocytes # (Auto) 1.01 K/uL (0.11-0.59) Eosinophils # (Auto) 0.14 K/uL (0-0.5) Basophils # (Auto) 0.02 K/uL (0-0.2) RDW Standard Deviation 51.1 fL (36.4-46.3) RDW Coefficient of Variation 15.8 % (11.5-14.5) Immature Granulocyte % (Auto) 0.7 % Immature Granulocyte # (Auto) 0.11 K/uL (0.00-0.02) Prothrombin Time 12.8 SECONDS (9.0-12.0) Prothromb Time International Ratio 1.2 (0.9-1.1) Activated Partial Thromboplast Time 28.6 SECONDS (21.0-31.0) Partial Thromboplastin Ratio 1.1 Anion Gap 13.0 mmol/L (3-11) Est Creatinine Clear Calc Drug Dose 49.0 ml/min Estimated GFR () 46.2 Estimated GFR (Non- 39.9 BUN/Creatinine Ratio 9.3 (10-20) Calcium Level 6.5 mg/dl (8.5-10.1) Magnesium Level 0.6 mg/dl (1.8-2.4) Total Bilirubin 0.3 mg/dl (0.2-1) Direct Bilirubin < 0.1 mg/dl (0-0.2) Aspartate Amino Transf (AST/SGOT) 18 U/L (15-37) Alanine Aminotransferase (ALT/SGPT) 21 U/L (12-78) Alkaline Phosphatase 122 U/L (45-117) Total Protein 7.5 gm/dl (6.4-8.2) Albumin 2.9 gm/dl (3.4-5.0) Lipase 145 U/L (73-393) Thyroid Stimulating Hormone (TSH) 1.540 uIu/ml (0.300-4.500) Urine Color DK YELLOW Urine Appearance TURBID (CLEAR) Urine pH 7.0 (4.5-7.5) Urine Specific [place] 1.012 (1.000-1.030) Urine Protein 1+ (NEG) Urine Glucose (UA) NEG (NEG) Urine Ketones NEG (NEG) Urine Occult Blood 1+ (NEG) Urine Nitrite POS (NEG) Urine Bilirubin NEG (NEG) Urine Urobilinogen NEG (NEG) Urine Leukocyte Esterase MODERATE (NEG) Urine WBC (Auto) >30 /hpf (0-5) Urine RBC (Auto) 0-4 /hpf (0-4) Urine Hyaline Casts (Auto) 1-5 /lpf (0-5) Urine Epithelial Cells (Auto) >30 /lpf (0-5) Urine Bacteria (Auto) 3+ (NEG) Urine Pathogenic Casts 1-5 GRANULAR CASTS /lpf (0) Urine Mucus PRESENT (NONE PRSENT) Laboratory results as stated above per my review. Medications Administered Medications (Trade) Dose Ordered Sig/Sujit Route Start Time Stop Time Status Last Admin Dose Admin Sodium Chloride 1,000 ml @ 999 mls/hr Q1H1M STAT IV 10/09/16 19:05 10/09/16 20:05 DC 10/09/16 19:21 999 MLS/HR Ondansetron HCl (Zofran Inj) 4 mg NOW STAT IV 10/09/16 19:05 10/09/16 19:08 DC 10/09/16 19:21 4 MG Magnesium Sulfate (Magnesium Sulfate) 2 gm NOW STAT IV 10/09/16 20:03 10/09/16 20:04 DC 10/09/16 20:03 2 GM Calcium Gluconate (Calcium Gluconate 10%) 1,000 mg NOW STAT IV 10/09/16 20:06 10/09/16 20:07 DC 10/09/16 20:22 1,000 MG Potassium Chloride (Klor-Con M10) 40 meq NOW STAT PO 10/09/16 20:07 10/09/16 20:08 DC 10/09/16 20:20 40 MEQ Ondansetron HCl (Zofran Inj) 4 mg NOW STAT IV 10/09/16 20:08 10/09/16 20:09 DC 10/09/16 20:08 4 MG ECG Indication: weakness Rate (beats per minute): 73 Rhythm: normal sinus Findings: RBBB, no acute ischemic change, no ectopy ED Course 1899: Previous medical records were reviewed. The patient was evaluated in room C3. A complete history and physical examination was performed. 1904: Zofran 4 mg IV, NSS 1000 ml @ 999 mls/hr. 2003: Magnesium Sulfate 2 gm IV. 2006: Calcium Gluconate 1000 mg IV. 2007: Potassium Chloride 40 meq PO. 2008: Zofran 4 mg IV. 2017: Discussed the case with Dr. Worley, [facility] Hospitalist. The patient will be evaluated. 2019: Rocephin 1 gm IV. Medical Decision Differential includes acute coronary syndrome, myocardial infarction, CVA, TIA, anemia, infection, pneumonia, UTI, pyelonephritis, poor nutrition, dehydration, electrolyte disturbance,hypoglycemia. Medication Reconciliation: I attest that I have personally reviewed the patient' s current medication list. Blood pressure Screening: Patient was found to have normal blood pressure on screening and does not require follow-up. This is a 61-year-old female who presents to the ED with a chief complaint of nausea, vomiting and diarrhea for the past 3 weeks. She has been diagnosis C. difficile 3 weeks ago. She has not been on Flagyl for the past 10 days or so. She continues having diarrhea about every 30 minutes or so. She reports dry heaves as well as some paresthesias in her hands. The patient reports diarrhea as well as nausea and dry heaves with oral intake. Her physical exam was relatively unremarkable. She does have hyperactive bowel sounds. White blood count was 16.5. EKG shows a normal sinus rhythm. Potassium was 2.6, magnesium is 0.6 and calcium is 6.5. TSH was normal. Creatinine is 1.4. Chest x-ray did not show acute disease. The patient was treated with IV fluids as well as IV Zofran for nausea. She was given IV magnesium, IV calcium and some oral potassium. The patient was seen by the hospitalist for further inpatient evaluation and care. Stool testing is pending for C. difficile. Consults Time Called: 2014 Consulting Physician: Dr. Worley [facility] Hospitalist Returned Call: 2016 The patient will be evaluated. Impression Primary Impression: Hypokalemia Additional Impressions: Hypomagnesemia Hypocalcemia C. difficile diarrhea Paresthesia Nausea & vomiting Urinary tract infection Scribe Attestation The scribe's documentation has been prepared under my direction and personally reviewed by me in its entirety. I confirm that the note above accurately reflects all work, treatment, procedures, and medical decision making performed by me. Departure Information Dispostion Being Evaluated By Hospitalist Referrals Cyril Kaiser MD (PCP) Patient Instructions My [facility] Problem Qualifiers Additional Impressions:
[2016-10-09] MEDS ORDERED: CEFTRIAXONE SOD INJ 1 GM ADDVIAL IV STA (20:19)
[2016-10-09 20:24] LABS: URINE MUCUS PRESENT (NONE PRSENT)
[2016-10-09 20:26] LABS: URINE PATH CASTS 1-5 GRANULAR CASTS /lpf (0)
[2016-10-09] MEDS ORDERED: CHOL4POW4 PO (20:49)
[2016-10-09] MEDS: ONDANSETRON INJ 2 MG/ML 2 ML VIAL IV. SCH (23:16)
[2016-10-09 23:41] VITALS: BP 120/73; PULSE 65; TEMP 36.9; O2SAT 96
[2016-10-09] MEDS ORDERED: METRONIDAZOLE 500 MG TAB PO ONE (23:52)
--- NOTE | 2016-10-09 23:54 | History and Physical ---
History & Physical Date & Time of Service: Oct 09, 2016 at 23:54 Chief Complaint: Diarrhea Primary Care Physician: Cyril Kaiser MD History of Present Illness Source: patient, spouse, clinic records, hospital records 61 year old female with PMHX of Bladder CA s/p cystectomy, COPD chronic tobacco abuse, anxiety, HTN, CKD stage 3, seizures, was recently admitted for UTI and Cdiff and discharged on 09/04 on Abx, Present to the ER for recurrent episodes of diarrhea associated with abdominal pain. Pt said that she completed flagyl for about 2 weeks now. Pt said that she continues to have watery diarrhea since discharge back in August. she said that she has more than 15 episodes of diarrhea. she said that the diarrhea is getting worst. She is also having crampy abdominal pain, no radiated, located in the mid abdomen, grade 8/10 and associated with nausea. Pt had a colonoscopy done on 10/03 that only showed d iffuse mild inflammation was found in the recto-sigmoid colon. Pt also said that she feels very weak and has not been eating much. She also feels numbness and tingling all over her body like something is crawling over her skin. She denies any chest pain, palpitation, dizziness, vomiting, fever, dysuria and SOB. Past Medical/Surgical History Medical Problems: (1) Anxiety Status: Chronic (2) Anxiety State Nos Status: Chronic (3) Bladder cancer Status: Resolved (4) Bladder cancer Status: Chronic (5) Cervical cancer Status: Chronic (6) CKD (chronic kidney disease), stage III Status: Chronic (7) COPD (chronic obstructive pulmonary disease) Status: Chronic (8) Depression Status: Chronic (9) Esophageal Reflux Status: Chronic (10) GERD (gastroesophageal reflux disease) Status: Chronic (11) HTN (hypertension) Status: Chronic (12) HTN (hypertension) Status: Chronic (13) Hyperlipidemia Nec/Nos Status: Chronic (14) Left knee DJD Status: Resolved (15) Seizure Status: Chronic (16) Seizure Status: Chronic (17) TIA (transient ischemic attack) Status: Chronic (18) Tobacco abuse Status: Chronic Surgical Problems: (1) Bladder Replacement Nec Status: Resolved (2) H/O hernia repair Status: Chronic (3) H/O total cystectomy Status: Resolved (4) H/O: hysterectomy Status: Resolved (5) H/O: hysterectomy Status: Chronic (6) History of salpingo-oophorectomy Status: Chronic (7) History of total knee arthroplasty Status: Chronic (8) Hx of total cystectomy Permanent Comment: with ana pouch Status: Chronic (9) Urinostomy Status Nec Status: Chronic Family History FHx: cancer FHx: lung disease Hypertension Social History Smoking Status: Current Every Day Smoker Alcohol Use: none Marital Status: Housing status: lives with family Occupational Status: retired Immunizations History of Influenza Vaccine: Yes History of Tetanus Vaccine?: UTD History of Pneumococcal: No History of Hepatitis B Vaccine: No Allergies Coded Allergies: No Known Drug Allergy (Verified Allergy, Unknown, NONE, 09/29/16) Home Medications Scheduled Aspirin (Aspirin Ec), 81 MG PO QAM Buspirone Hcl (Buspirone Hcl), 10 MG PO BID Cholestyramine (Cholestyramine), 1 PKT PO DAILY Clopidogrel (Plavix), 75 MG PO QAM Cyanocobalamin (Vitamin B12), 1 TAB PO QAM Levetiracetam (Keppra), 500 MG PO HS Meloxicam (Mobic), 15 MG PO QAM Omeprazole (Prilosec), 20 MG PO QAM Paroxetine (Paxil), 20 MG PO QAM Potassium Chloride (K-Tab), 1 TAB PO BID Simvastatin (Zocor), 20 MG PO HS Review of Systems Constitutional: + weakness, + fatigue, No fever, No chills Eyes: No worsening of vision, No discharge ENT: No hearing loss, No nasal symptoms, No sore throat Respiratory: No cough, No sputum, No wheezing Cardiovascular: No chest pain, No orthopnea, No claudication, No palpitations Abdomen: + pain, + nausea, + diarrhea, No vomiting Musculoskeletal: No calf pain Genitourinary - Female: + urinary retention, No dysuria Neurologic: + weakness, + numbness/tingling Psychiatric: No substance abuse Endocrine: + fatigue, No excessive thirst Hematologic / Lymphatic: No night sweats Integumentary: No rash, No itch Physical Exam Vital Signs Date Time Temp Pulse Resp B/P (MAP) Pulse Ox O2 Delivery O2 Flow Rate FiO2 10/09/16 23:41 36.9 65 20 120/73 (89) 96 Room Air 10/09/16 22:42 67 20 116/71 95 10/09/16 21:00 98 16 144/71 94 Room Air 10/09/16 20:05 82 20 123/77 99 Room Air 10/09/16 18:53 36.7 87 20 128/87 94 Room Air General Appearance: WD/WN, no apparent distress, + obese Head: normocephalic, atraumatic Eyes: PERRL, EOMI ENT: hearing grossly normal Neck: supple, no JVD Respiratory/Chest: normal breath sounds, no respiratory distress, no accessory muscle use Cardiovascular: regular rate, rhythm, no JVD, no murmur Abdomen/GI: normal bowel sounds, soft, + tenderness Back: no CVA tenderness Extremities/Musculoskelatal: no calf tenderness Neurologic/Psych: alert, normal mood/affect, oriented x 3 Skin: warm/dry, no rash Diagnostics Laboratory Results Results Past 24 Hours Test 10/09/16 19:10 10/09/16 19:55 Range/Units White Blood Count 16.50 4.8-10.8 K/uL Red Blood Count 4.91 4.2-5.4 M/uL Hemoglobin 14.5 12.0-16.0 g/dL Hematocrit 43.1 37-47 % Mean Corpuscular Volume 87.8 80-100 fL Mean Corpuscular Hemoglobin 29.5 25-34 pg Mean Corpuscular Hemoglobin Concent 33.6 32-36 g/dl Platelet Count 411 130-400 K/uL Mean Platelet Volume 9.2 7.4-10.4 fL Neutrophils (%) (Auto) 80.8 % Lymphocytes (%) (Auto) 11.5 % Monocytes (%) (Auto) 6.1 % Eosinophils (%) (Auto) 0.8 % Basophils (%) (Auto) 0.1 % Neutrophils # (Auto) 13.32 1.4-6.5 K/uL Lymphocytes # (Auto) 1.90 1.2-3.4 K/uL Monocytes # (Auto) 1.01 0.11-0.59 K/uL Eosinophils # (Auto) 0.14 0-0.5 K/uL Basophils # (Auto) 0.02 0-0.2 K/uL RDW Standard Deviation 51.1 36.4-46.3 fL RDW Coefficient of Variation 15.8 11.5-14.5 % Immature Granulocyte % (Auto) 0.7 % Immature Granulocyte # (Auto) 0.11 0.00-0.02 K/uL Prothrombin Time 12.8 9.0-12.0 SECONDS Prothromb Time International Ratio 1.2 0.9-1.1 Activated Partial Thromboplast Time 28.6 21.0-31.0 SECONDS Partial Thromboplastin Ratio 1.1 Sodium Level 143 136-145 mmol/L Potassium Level 2.6 3.5-5.1 mmol/L Chloride Level 107 98-107 mmol/L Carbon Dioxide Level 23 21-32 mmol/L Anion Gap 13.0 3-11 mmol/L Blood Urea Nitrogen 13 7-18 mg/dl Creatinine 1.40 0.60-1.20 mg/dl Est Creatinine Clear Calc Drug Dose 49.0 ml/min Estimated GFR () 46.2 Estimated GFR (Non- 39.9 BUN/Creatinine Ratio 9.3 10-20 Random Glucose 107 70-99 mg/dl Calcium Level 6.5 8.5-10.1 mg/dl Magnesium Level 0.6 1.8-2.4 mg/dl Total Bilirubin 0.3 0.2-1 mg/dl Direct Bilirubin < 0.1 0-0.2 mg/dl Aspartate Amino Transf (AST/SGOT) 18 15-37 U/L Alanine Aminotransferase (ALT/SGPT) 21 12-78 U/L Alkaline Phosphatase 122 45-117 U/L Total Protein 7.5 6.4-8.2 gm/dl Albumin 2.9 3.4-5.0 gm/dl Lipase 145 73-393 U/L Thyroid Stimulating Hormone (TSH) 1.540 0.300-4.500 uIu/ml Urine Color DK YELLOW Urine Appearance TURBID CLEAR Urine pH 7.0 4.5-7.5 Urine Specific [place] 1.012 1.000-1.030 Urine Protein 1+ NEG Urine Glucose (UA) NEG NEG Urine Ketones NEG NEG Urine Occult Blood 1+ NEG Urine Nitrite POS NEG Urine Bilirubin NEG NEG Urine Urobilinogen NEG NEG Urine Leukocyte Esterase MODERATE NEG Urine WBC (Auto) >30 0-5 /hpf Urine RBC (Auto) 0-4 0-4 /hpf Urine Hyaline Casts (Auto) 1-5 0-5 /lpf Urine Epithelial Cells (Auto) >30 0-5 /lpf Urine Bacteria (Auto) 3+ NEG Urine Pathogenic Casts 1-5 GRANULAR CASTS 0 /lpf Urine Mucus PRESENT NONE PRSENT Microbiology Results 10/09/16 C.difficile Toxin B Gene (PCR) - Final, Complete Positive for C. difficile toxin B gene 10/09/16 Urine Culture, Received Pending Diagnostic Radiology CHEST ONE VIEW PORTABLE CLINICAL HISTORY: ABDOMINAL PAIN/GI pain COMPARISON STUDY: 09/02/2016 FINDINGS: The bones soft tissues and hemidiaphragms are normal. The cardiomediastinal silhouette is normal. The lungs are clear. The pulmonary vasculature is normal. IMPRESSION: Negative chest. Electronically signed by: Gilles Parson M.D. 10/09/2016 7:20 PM Dictated Date/Time: 10/09/2016 7:19 PM Impression Assessment and Plan C-DIFF -Present with Abd pain and WBC 16.5K -On contact isolation -Completed 10 days course of Flagyl about 3 weeks ago. -Not sure if it is recurrent or needed a longer course of treatment -Will start on PO Vanco -NS at 100ml/hr -Morphine for the abdominal pain ACUTE RENAL INJURY ON CKD STAGE 3 -Crea 1.4 baseline 1 -like secondary to dehydration from diarrhea -IVF hydration -Repeat PRP in AM ELECTROLYTES IMBALANCE -Mostly due to diarrhea -Mg on admission 0.6 - K on admission was 2.6 -Mg and K replaced -follow H/O BLADDER CA -s/p cystectomy with Ana pouch -continue to straight cath H/O TIA -continue Statin, ASA, Plavix HTN -stable H/O SEIZURES -continue Keppra TOBACCO ABUSE -Cessation counseling given -Nicotine patch ordered ANXIETY -continue BuSpar, Paxil H/O CERVICAL CA -s/p hysterectomy GERD -continue PPI DVT PROPHYLAXIS: Sq heparin CODE STATUS: FULL CODE DISPO:In my clinical judgment this beneficiary meets acute admission criteria, established by [facility], that includes being hospitalized through two midnights. Level of Care Med/Surg Resuscitation Status FULL RESUSCITATION VTE Prophylaxis VTE Risk Assessment Done? Y/N: Yes Risk Level: Moderate Given or contraindicated: Unfractionated heparin SQ
[2016-10-10] MEDS: MoRPHine SULFATE 2 MG/ML CARP IV PRN ×3 (00:43→20:33)
[2016-10-10 01:09] LABS: BUN/CREATININE RATIO 11.9 (10-20); CALCIUM 6.3 mg/dl (8.5-10.1); CREATININE 1.1 mg/dl (0.60-1.20); MAGNESIUM 1.2 mg/dl (1.8-2.4); POTASSIUM 2.7 mmol/L (3.5-5.1)
[2016-10-10] MEDS ORDERED: POTASSIUM CHLORIDE 20 MEQ TABCR PO ONE (03:15)
[2016-10-10] MEDS ORDERED: LEVE500T13 PO (04:12)
[2016-10-10 04:25] VITALS: BP 120/73; PULSE 65; TEMP 36.9; Ht 165.1 cm; Wt 109.3 kg
[2016-10-10] MEDS ORDERED: VANCOMYCIN HCL 125 MG/2.5ML SOLN PO ONE (04:30)
[2016-10-10] MEDS: NSS + 20MEQ KCL 1000ML 1,000 ML IV SCH ×2 (05:07→16:13)
[2016-10-10] MEDS: MAGNESIUM SULFATE 1GM / D5W 1 GM in PREMIXED IN D5W 100 ML IV SCH ×2 (05:07→06:07)
[2016-10-10] MEDS: RASPBERRY SYRUP 5 ML UDP PO SCH ×5 (05:25→20:23)
[2016-10-10] MEDS: ONDANSETRON INJ 2 MG/ML 2 ML VIAL IV. SCH ×3 (05:26→17:34)
[2016-10-10] MEDS: HEPARIN SOD 5000 UNIT/0.5 ML CARP SQ SCH ×3 (05:28→21:31)
[2016-10-10] MEDS: NICOTINE 21 MG/24 HR TDSY TD SCH (06:11)
[2016-10-10 07:25] VITALS: BP 108/70; PULSE 68; TEMP 36.9; O2SAT 95
[2016-10-10 07:28] LABS: HEMATOCRIT 36.2 % (37-47); MEAN CELL VOLUME 88.5 fL (80-100); MEAN CORPUSCULAR HEMOGLOBIN 29.6 pg (25-34); MEAN CORPUSCULAR HGB CONC 33.4 g/dl (32-36); MEAN PLATELET VOLUME 8.9 fL (7.4-10.4); PLATELET COUNT 328 K/uL (130-400); RED BLOOD COUNT 4.09 M/uL (4.2-5.4); WHITE BLOOD COUNT 15.14 K/uL (4.8-10.8)
[2016-10-10] MEDS ORDERED: METRONIDAZOLE 500 MG TAB PO SCH (08:00)
[2016-10-10 08:01] LABS: BUN/CREATININE RATIO 10.1 (10-20); CALCIUM 6.3 mg/dl (8.5-10.1); CREATININE 1.1 mg/dl (0.60-1.20); POTASSIUM 3.1 mmol/L (3.5-5.1)
[2016-10-10] MEDS: VANCOMYCIN HCL 125 MG/2.5ML SOLN PO SCH ×4 (08:04→20:23)
[2016-10-10] MEDS: PANTOprazole SOD 40 MG TAB PO SCH (08:05)
[2016-10-10] MEDS: PAROXETINE 20 MG TAB PO SCH (08:05)
[2016-10-10] MEDS: ASPIRIN 81 MG ECTAB PO SCH (08:05)
[2016-10-10] MEDS: LEVETIRACETAM 500 MG TAB PO SCH ×2 (08:05→20:24)
[2016-10-10] MEDS: CLOPIDOGREL BISULFATE 75 MG TAB PO SCH (08:05)
[2016-10-10] MEDS: CYANOCOBALAMIN 500 MCG TAB (VIT B-12) PO SCH (08:05)
[2016-10-10] MEDS: POTASSIUM CHLORIDE 20 MEQ TABCR PO SCH ×2 (08:05→20:25)
[2016-10-10] MEDS ORDERED: POTASSIUM CHLR 20 MEQ / WTR 40 MEQ in PREMIXED WATER 100 ML IV STA (09:44)
--- NOTE | 2016-10-10 10:44 | Progress Note ---
Subjective Date of Service: Oct 10, 2016. Subjective Pt evaluation today including: conversation w/ patient, physical exam, lab review, review of studies, review of inpatient medication list Saw/examined the patient in room 460 She presented with multiple episodes of diarrhea, abdominal pain had 8 episodes of diarrhea today Problem List Medical Problems: (1) Acute renal failure Status: Acute (2) Anxiety State Nos Status: Chronic (3) C. difficile diarrhea Status: Acute (4) Confusion Status: Acute (5) Depression Status: Chronic (6) Esophageal Reflux Status: Chronic (7) HTN (hypertension) Status: Chronic (8) Hyperlipidemia Nec/Nos Status: Chronic (9) Hypocalcemia Status: Acute (10) Hypokalemia Status: Acute (11) Hypomagnesemia Status: Acute (12) Hypomagnesemia Status: Acute (13) Nausea & vomiting Status: Acute (14) Paresthesia Status: Acute (15) Seizure Status: Chronic (16) Sepsis Status: Acute (17) Urinary tract infection Status: Acute Surgical Problems: (1) Urinostomy Status Nec Status: Chronic Review of Systems Constitutional: No fever, No chills Respiratory: No shortness of breath Cardiac: No chest pain Abdomen: + pain, + nausea, + diarrhea, No vomiting, No constipation, No GI bleeding Musculoskeletal: + muscle pain (muscle spasms) Medications Current Inpatient Medications Medications (Trade) Dose Ordered Sig/Sujit Route Start Time Stop Time Status Last Admin Dose Admin Nicotine (Nicoderm Cq 21MG Patch) 1 patch QAM TD 10/10/16 08:00 11/09/16 08:59 10/10/16 06:11 1 PATCH Miscellaneous (Remove Nicoderm Patch) 1 ea HS N/A 10/10/16 21:00 11/09/16 20:59 Morphine Sulfate (MoRPHine SULFATE INJ) 2 mg Q4 PRN IV 10/09/16 21:30 10/23/16 21:29 10/10/16 05:02 2 MG Ondansetron HCl (Zofran Inj) 4 mg Q6H IV. 10/10/16 00:00 11/09/16 00:00 10/10/16 05:26 4 MG Metronidazole (Flagyl Tab) 500 mg TID PO 10/10/16 08:00 10/24/16 07:59 10/10/16 08:05 500 MG Potassium Chloride/Sodium Chloride 1,000 ml @ 100 mls/hr Q10H IV 10/10/16 03:30 11/09/16 03:29 10/10/16 05:07 100 MLS/HR Vancomycin HCl (Vancomycin Oral Soln) 125 mg QID PO 10/10/16 08:00 10/24/16 07:59 10/10/16 08:04 125 MG Aspirin (Ecotrin Tab) 81 mg QAM PO 10/10/16 08:00 11/09/16 07:59 10/10/16 08:05 81 MG Clopidogrel Bisulfate (plAVix TAB) 75 mg QAM PO 10/10/16 08:00 11/09/16 07:59 10/10/16 08:05 75 MG Levetiracetam (Keppra Tab) 500 mg BID PO 10/10/16 08:00 11/09/16 07:59 10/10/16 08:05 500 MG Paroxetine HCl (pAXil TAB) 20 mg QAM PO 10/10/16 08:00 11/09/16 07:59 10/10/16 08:05 20 MG Simvastatin (Zocor Tab) 20 mg HS PO 10/10/16 22:00 11/09/16 21:59 Buspirone HCl (Buspar Tab) 10 mg BID PO 10/10/16 08:00 11/09/16 07:59 10/10/16 08:06 10 MG Cyanocobalamin (Vitamin B-12 Tab) 1,000 mcg QAM PO 10/10/16 08:00 11/09/16 07:59 10/10/16 08:05 1,000 MCG Pantoprazole Sodium (Protonix Tab) 40 mg QAM PO 10/10/16 08:00 11/09/16 07:59 10/10/16 08:05 40 MG Potassium Chloride (Klor-Con Tab) 20 meq BID PO 10/10/16 08:00 11/09/16 07:59 10/10/16 08:05 20 MEQ Heparin Sodium (Porcine) (Heparin Sq 5000 Unit/0.5ml) 5,000 unit Q8H SQ 10/10/16 06:00 11/09/16 05:59 Raspberry (Raspberry Syrup 5ml Cup) 5 ml QID PO 10/10/16 04:30 10/24/16 04:29 10/10/16 08:04 5 ML Potassium Chloride 10 meq/ Prmx 100 ml @ 100 mls/hr Q1H IV 10/10/16 10:00 10/10/16 13:59 Objective Vital Signs Date Time Temp Pulse Resp B/P (MAP) Pulse Ox O2 Delivery O2 Flow Rate FiO2 10/10/16 08:45 Room Air 10/10/16 07:25 36.9 68 20 108/70 (83) 95 Room Air 10/10/16 04:25 36.9 65 20 120/73 Room Air 10/09/16 23:41 36.9 65 20 120/73 (89) 96 Room Air 10/09/16 22:42 67 20 116/71 95 10/09/16 21:00 98 16 144/71 94 Room Air 10/09/16 20:05 82 20 123/77 99 Room Air 10/09/16 18:53 36.7 87 20 128/87 94 Room Air Physical Exam General Appearance: + mild distress (secondary to diarrhea) Respiratory/Chest: no respiratory distress, no accessory muscle use Cardiovascular: regular rate, rhythm, no edema, no murmur Abdomen: soft, + abnormal bowel sounds (hyperactive), + tenderness Laboratory Results Last 24 Hours Test 10/09/16 19:10 10/09/16 19:55 10/10/16 00:38 10/10/16 06:53 White Blood Count 16.50 K/uL 15.14 K/uL Red Blood Count 4.91 M/uL 4.09 M/uL Hemoglobin 14.5 g/dL 12.1 g/dL Hematocrit 43.1 % 36.2 % Mean Corpuscular Volume 87.8 fL 88.5 fL Mean Corpuscular Hemoglobin 29.5 pg 29.6 pg Mean Corpuscular Hemoglobin Concent 33.6 g/dl 33.4 g/dl Platelet Count 411 K/uL 328 K/uL Mean Platelet Volume 9.2 fL 8.9 fL Neutrophils (%) (Auto) 80.8 % Lymphocytes (%) (Auto) 11.5 % Monocytes (%) (Auto) 6.1 % Eosinophils (%) (Auto) 0.8 % Basophils (%) (Auto) 0.1 % Neutrophils # (Auto) 13.32 K/uL Lymphocytes # (Auto) 1.90 K/uL Monocytes # (Auto) 1.01 K/uL Eosinophils # (Auto) 0.14 K/uL Basophils # (Auto) 0.02 K/uL RDW Standard Deviation 51.1 fL 51.8 fL RDW Coefficient of Variation 15.8 % 16.0 % Immature Granulocyte % (Auto) 0.7 % Immature Granulocyte # (Auto) 0.11 K/uL Prothrombin Time 12.8 SECONDS Prothromb Time International Ratio 1.2 Activated Partial Thromboplast Time 28.6 SECONDS Partial Thromboplastin Ratio 1.1 Sodium Level 143 mmol/L 144 mmol/L 142 mmol/L Potassium Level 2.6 mmol/L 2.7 mmol/L 3.1 mmol/L Chloride Level 107 mmol/L 110 mmol/L 110 mmol/L Carbon Dioxide Level 23 mmol/L 24 mmol/L 19 mmol/L Anion Gap 13.0 mmol/L 10.0 mmol/L 13.0 mmol/L Blood Urea Nitrogen 13 mg/dl 13 mg/dl 11 mg/dl Creatinine 1.40 mg/dl 1.10 mg/dl 1.10 mg/dl Est Creatinine Clear Calc Drug Dose 49.0 ml/min 62.4 ml/min 62.4 ml/min Estimated GFR () 46.2 61.9 61.9 Estimated GFR (Non- 39.9 53.4 53.4 BUN/Creatinine Ratio 9.3 11.9 10.1 Random Glucose 107 mg/dl 103 mg/dl 115 mg/dl Calcium Level 6.5 mg/dl 6.3 mg/dl 6.3 mg/dl Magnesium Level 0.6 mg/dl 1.2 mg/dl 2.0 mg/dl Total Bilirubin 0.3 mg/dl Direct Bilirubin < 0.1 mg/dl Aspartate Amino Transf (AST/SGOT) 18 U/L Alanine Aminotransferase (ALT/SGPT) 21 U/L Alkaline Phosphatase 122 U/L Total Protein 7.5 gm/dl Albumin 2.9 gm/dl Lipase 145 U/L Thyroid Stimulating Hormone (TSH) 1.540 uIu/ml Urine Color DK YELLOW Urine Appearance TURBID Urine pH 7.0 Urine Specific [place] 1.012 Urine Protein 1+ Urine Glucose (UA) NEG Urine Ketones NEG Urine Occult Blood 1+ Urine Nitrite POS Urine Bilirubin NEG Urine Urobilinogen NEG Urine Leukocyte Esterase MODERATE Urine WBC (Auto) >30 /hpf Urine RBC (Auto) 0-4 /hpf Urine Hyaline Casts (Auto) 1-5 /lpf Urine Epithelial Cells (Auto) >30 /lpf Urine Bacteria (Auto) 3+ Urine Pathogenic Casts 1-5 GRANULAR CASTS /lpf Urine Mucus PRESENT Assessment and Plan This is a 61 year old female with a PMH of bladder CA s/p cystectomy and now intermittent self catheterizations and recurrent UTIs, COPD, HTN, CKD stage 3 - recent admission with UTI and C. Diff - presents with diarrhea C. Diff Diarrhea patient with + C. Diff recent discharged with a 10 day supply of Flagyl for C. Diff diarrhea persisted had colonoscopy on Monday, October 03 - no significant findings presents back to the ER with worsening abdominal pain and diarrhea presents with elevated white count - started on PO vancomycin; will add IV Flagyl continue IVFs, Zofran PRN for nausea this likely represents an untreated C. Diff infection from 3 weeks prior Acute Kidney Injury superimposed on CKD stage 3 secondary to diarrhea IVFs creat down from 1.4 to 1.1, continue fluids and avoid nephrotoxic agents if able Hypokalemia, Hypomagnesemia secondary to diarrhea had symptoms of muscle rigidity and spasms Mg has resolved K improved to 3.1; will give another 40mEq KCl through the IV Possible UTI Recurrent UTIs due to self-catheterizations patient presents with recurrent UTIs; recent treatment 3 weeks prior urine appears darker to her will add Rocephin and check urine culture HTN continue home meds COPD/Tobacco Use Disorder Nicotine patch no exacerbation Hx. of Seizure Disorder continue Keppra DVT ppx subq heparin FULL CODE
[2016-10-10] MEDS: POTASSIUM CHLR 10MEQ / WTR IV SCH ×4 (10:46→14:51)
[2016-10-10] MEDS: CEFTRIAXONE SOD INJ 1 GM in DEXTROSE 5% ADD-VANTAGE 50ML 50 ML IV SCH (11:35)
[2016-10-10] MEDS: METRONIDAZOLE / NSS 500 MG in PREMIXED NSS 100 ML IV SCH ×2 (12:12→20:16)
[2016-10-10 15:39] VITALS: BP 102/65; PULSE 62; TEMP 36.8; O2SAT 97
[2016-10-10] MEDS: SIMVASTATIN 20 MG TAB PO SCH (21:30)
[2016-10-10 23:30] VITALS: BP 125/75; PULSE 60; TEMP 36.8; O2SAT 94
[2016-10-11] MEDS: NSS + 20MEQ KCL 1000ML 1,000 ML IV SCH ×2 (00:10→09:38)
[2016-10-11] MEDS: ONDANSETRON INJ 2 MG/ML 2 ML VIAL IV. SCH ×5 (00:10→23:30)
[2016-10-11] MEDS: METRONIDAZOLE / NSS 500 MG in PREMIXED NSS 100 ML IV SCH (05:23)
[2016-10-11] MEDS: HEPARIN SOD 5000 UNIT/0.5 ML CARP SQ SCH ×2 (05:26→12:35)
[2016-10-11 07:35] LABS: HEMATOCRIT 37.6 % (37-47); MEAN CELL VOLUME 89.1 fL (80-100); MEAN CORPUSCULAR HEMOGLOBIN 28.4 pg (25-34); MEAN CORPUSCULAR HGB CONC 31.9 g/dl (32-36); MEAN PLATELET VOLUME 8.8 fL (7.4-10.4); PLATELET COUNT 350 K/uL (130-400); RED BLOOD COUNT 4.22 M/uL (4.2-5.4); WHITE BLOOD COUNT 11.66 K/uL (4.8-10.8)
[2016-10-11 07:47] VITALS: BP 130/85; PULSE 61; TEMP 36.9; O2SAT 96
[2016-10-11] MEDS: ASPIRIN 81 MG ECTAB PO SCH (09:19)
[2016-10-11] MEDS: PAROXETINE 20 MG TAB PO SCH (09:19)
[2016-10-11] MEDS: PANTOprazole SOD 40 MG TAB PO SCH (09:19)
[2016-10-11] MEDS: LEVETIRACETAM 500 MG TAB PO SCH ×2 (09:19→21:16)
[2016-10-11] MEDS: CLOPIDOGREL BISULFATE 75 MG TAB PO SCH (09:20)
[2016-10-11] MEDS: CYANOCOBALAMIN 500 MCG TAB (VIT B-12) PO SCH (09:21)
[2016-10-11] MEDS: RASPBERRY SYRUP 5 ML UDP PO SCH ×4 (09:21→21:13)
[2016-10-11] MEDS: NICOTINE 21 MG/24 HR TDSY TD SCH (09:22)
[2016-10-11] MEDS: POTASSIUM CHLORIDE 20 MEQ TABCR PO SCH ×2 (09:35→21:17)
[2016-10-11] MEDS: VANCOMYCIN HCL 125 MG/2.5ML SOLN PO SCH ×4 (09:38→21:14)
[2016-10-11] MEDS ORDERED: POTASSIUM CHLR 10 MEQ / WTR 20 MEQ in PREMIXED WATER 100 ML IV STA (11:35)
[2016-10-11] MEDS: CEFTRIAXONE SOD INJ 1 GM in DEXTROSE 5% ADD-VANTAGE 50ML 50 ML IV SCH (12:31)
[2016-10-11 13:29] LABS: BUN/CREATININE RATIO 7.4 (10-20); CALCIUM 6.3 mg/dl (8.5-10.1); MAGNESIUM 1.5 mg/dl (1.8-2.4); POTASSIUM 3.9 mmol/L (3.5-5.1)
--- NOTE | 2016-10-11 14:16 | Medical Consult ---
Consultation Date of Consultation: Oct 11, 2016. Attending Physician: Nahed Juan M.D. History of Present Illness presents with diarrhea, has had for 3 weeks, assoc with cramps and occansional blood. no f/c. had colonoscopy on 10/03, reported recto-sigmoid inflammation, unsure if biopsy done. tested + for c diff as outpt and was s tarted on montelongo 7 days ago. tolerating well but some nausea and poor po intake. worsening diarrhea while on abx, came to ER. c diff +, started on po vanco, feeling somewhat better today. no incontinence since admission. denies f/c. wbc initially 16.5, improved 10 11 today. also placed on ctx for + ua, >30 wbc, 3 + bacteria, does self cath at home. no gu symptoms. denies any recent abx other than montelongo. 09/16 urine culture with E. faecalis. All remaining ros reviewed and are negative, denies previous episode of c diff. Past Medical/Surgical History Medical Problems: (1) Acute renal failure Status: Acute (2) Anxiety State Nos Status: Chronic (3) C. difficile diarrhea Status: Acute (4) Confusion Status: Acute (5) Depression Status: Chronic (6) Esophageal Reflux Status: Chronic (7) HTN (hypertension) Status: Chronic (8) Hyperlipidemia Nec/Nos Status: Chronic (9) Hypocalcemia Status: Acute (10) Hypokalemia Status: Acute (11) Hypomagnesemia Status: Acute (12) Hypomagnesemia Status: Acute (13) Nausea & vomiting Status: Acute (14) Paresthesia Status: Acute (15) Seizure Status: Chronic (16) Sepsis Status: Acute (17) Urinary tract infection Status: Acute Surgical Problems: (1) Urinostomy Status Nec Status: Chronic Family History FHx: cancer FHx: lung disease Hypertension Social History Smoking Status: Current Every Day Smoker Alcohol Use: none Marital Status: Housing Status: lives with family Occupation Status: retired Allergies Coded Allergies: No Known Drug Allergy (Verified Allergy, Unknown, NONE, 09/29/16) Current Inpatient Medications Current Inpatient Medications Medications (Trade) Dose Ordered Sig/Sujit Route Start Time Stop Time Status Last Admin Dose Admin Nicotine (Nicoderm Cq 21MG Patch) 1 patch QAM TD 10/10/16 08:00 11/09/16 08:59 10/11/16 09:22 1 PATCH Miscellaneous (Remove Nicoderm Patch) 1 ea HS N/A 10/10/16 21:00 11/09/16 20:59 Morphine Sulfate (MoRPHine SULFATE INJ) 2 mg Q4 PRN IV 10/09/16 21:30 10/23/16 21:29 10/10/16 20:33 2 MG Ondansetron HCl (Zofran Inj) 4 mg Q6H IV. 10/10/16 00:00 11/09/16 00:00 10/11/16 05:26 4 MG Potassium Chloride/Sodium Chloride 1,000 ml @ 100 mls/hr Q10H IV 10/10/16 03:30 11/09/16 03:29 10/11/16 09:38 100 MLS/HR Vancomycin HCl (Vancomycin Oral Soln) 125 mg QID PO 10/10/16 08:00 10/24/16 07:59 10/11/16 12:34 125 MG Aspirin (Ecotrin Tab) 81 mg QAM PO 10/10/16 08:00 11/09/16 07:59 10/11/16 09:19 81 MG Clopidogrel Bisulfate (plAVix TAB) 75 mg QAM PO 10/10/16 08:00 11/09/16 07:59 10/11/16 09:20 75 MG Levetiracetam (Keppra Tab) 500 mg BID PO 10/10/16 08:00 11/09/16 07:59 10/11/16 09:19 500 MG Paroxetine HCl (pAXil TAB) 20 mg QAM PO 10/10/16 08:00 11/09/16 07:59 10/11/16 09:19 20 MG Simvastatin (Zocor Tab) 20 mg HS PO 10/10/16 22:00 11/09/16 21:59 10/10/16 21:30 20 MG Buspirone HCl (Buspar Tab) 10 mg BID PO 10/10/16 08:00 11/09/16 07:59 10/11/16 09:19 10 MG Cyanocobalamin (Vitamin B-12 Tab) 1,000 mcg QAM PO 10/10/16 08:00 11/09/16 07:59 10/11/16 09:21 1,000 MCG Pantoprazole Sodium (Protonix Tab) 40 mg QAM PO 10/10/16 08:00 11/09/16 07:59 10/11/16 09:19 40 MG Potassium Chloride (Klor-Con Tab) 20 meq BID PO 10/10/16 08:00 11/09/16 07:59 10/11/16 09:35 20 MEQ Heparin Sodium (Porcine) (Heparin Sq 5000 Unit/0.5ml) 5,000 unit Q8H SQ 10/10/16 06:00 11/09/16 05:59 Raspberry (Raspberry Syrup 5ml Cup) 5 ml QID PO 10/10/16 04:30 10/24/16 04:29 10/11/16 12:33 5 ML Ceftriaxone Sodium 1 gm/ Dextrose 50 ml @ 100 mls/hr DAILY@1200 IV 10/10/16 12:00 10/18/16 12:29 10/11/16 12:31 100 MLS/HR Physical Exam Date Time Temp Pulse Resp B/P (MAP) Pulse Ox O2 Delivery O2 Flow Rate FiO2 10/11/16 10:49 Room Air 10/11/16 07:47 36.9 61 18 130/85 (100) 96 10/11/16 00:00 Room Air 10/10/16 23:30 36.8 60 18 125/75 (92) 94 Room Air 10/10/16 20:00 Room Air 10/10/16 16:45 Room Air 10/10/16 15:39 36.8 62 16 102/65 (77) 97 Room Air General Appearance: no apparent distress Head: normocephalic, atraumatic Eyes: normal inspection, EOMI Neck: supple Respiratory/Chest: lungs clear, normal breath sounds, no respiratory distress Cardiovascular: regular rate, rhythm, no edema Abdomen/GI: non tender, soft Extremities/Musculoskelatal: no pedal edema Neurologic/Psych: alert, oriented x 3 Skin: normal color Laboratory Results Item Value Date Time Urine Culture - Final Complete 10/09/161954 Urine , Clean Catch Enterococcus Faecalis C.difficile Toxin B Gene (PCR) - Final Complete 10/09/161954 Stool Positive for C. difficile toxin B gene Last 24 Hours Test 10/11/16 07:21 White Blood Count 11.66 K/uL Red Blood Count 4.22 M/uL Hemoglobin 12.0 g/dL Hematocrit 37.6 % Mean Corpuscular Volume 89.1 fL Mean Corpuscular Hemoglobin 28.4 pg Mean Corpuscular Hemoglobin Concent 31.9 g/dl RDW Standard Deviation 52.4 fL RDW Coefficient of Variation 16.1 % Platelet Count 350 K/uL Mean Platelet Volume 8.8 fL Sodium Level 141 mmol/L Potassium Level 3.9 mmol/L Chloride Level 113 mmol/L Carbon Dioxide Level 20 mmol/L Anion Gap 8.0 mmol/L Blood Urea Nitrogen 7 mg/dl Creatinine 1.00 mg/dl Est Creatinine Clear Calc Drug Dose 68.6 ml/min Estimated GFR () 69.4 Estimated GFR (Non- 59.9 BUN/Creatinine Ratio 7.4 Random Glucose 89 mg/dl Calcium Level 6.3 mg/dl Magnesium Level 1.5 mg/dl Assessment & Plan (1) C. difficile colitis Assessment & Plan: agree with po vanco, montelongo already stopped. will need min 21 days (2) Urinary tract infection Status: Acute Assessment & Plan: stop ctx, will give po amox x 3 days (3) Leukocytosis Assessment & Plan: resolving
[2016-10-11 15:30] VITALS: BP 122/76; PULSE 76; TEMP 36.9; O2SAT 94
[2016-10-11] MEDS: MoRPHine SULFATE 2 MG/ML CARP IV PRN ×2 (16:47→23:36)
[2016-10-11] MEDS ORDERED: MAGNESIUM SULFATE 1GM / D5W 1 GM in PREMIXED IN D5W 100 ML IV ONE (20:00)
--- NOTE | 2016-10-11 20:02 | Progress Note ---
Internal Med Progress Note Date of Service: Oct 11, 2016. Provider Documentation: SUBJECTIVE: continues to have diarrhea had approx 14 bowel movement today no blood on stool having cramps in lower abdomen with bowel movement no nausea -diet advanced to low fiber tolerating well no fever or chills OBJECTIVE: Vital Signs-as noted below Exam: General-no sign of distress Eyes-sclera non icteric Lungs-CTA Heart-regular S1/S2 Abdomen-soft, healed surgical scan in mid abdomen, mild tenderness in lower abdomen , active bowel sound Extremities-no rash or deformity Neuro-AAO x3, no focal neurological deficit Lab data as noted below. ASSESSMENT & PLAN: This is a 61 year old female with a PMH of bladder CA s/p cystectomy and now intermittent self catheterizations and recurrent UTIs, COPD, HTN, CKD stage 3 - recent admission with UTI and C. Diff - presents with diarrhea C. Diff Diarrhea recent discharged with a 10 day supply of Flagyl for C. Diff ( stool c diff positive on 10/05/16 ) pt mentions of taking Meds religiously has not missed any dose diarrhea persisted had colonoscopy on Monday, October 03 -by Dr Claire Milton -showed normal exam of descending colon , transverse colon , ascending colon -diffuse mild inflammation characterized by congestion ( edema ) , erythema and granularity was found in recto-sigmoid Biopsy taken : Pathology : Colon : mild acute/chronic inflammation of the lamina propria increased intraepithelial lymphocytes are not seen pt started on PO vancomycin for ongoing Diarrhea /C diff Stool specimen positive for C diff this admission as well presented with abdominal pain /worsening of diarrhea /stool incontinence associated with Leukocytosis WBC improved GI eval requested ordered for CT abdomen /pelvis for assessment of C colitis Acute Kidney Injury superimposed on CKD stage 3 secondary to diarrhea improved with IV fluids follow PRP Hypokalemia, Hypomagnesemia secondary to diarrhea/GI loss improved follow Lytes and correct as indicated UTI Hx of bladder CA s/p Cystectomy/ Recurrent UTIs due to self-catheterizations patient presents with recurrent UTIs; recent treatment 3 weeks prior urine culture enterococcus appreciate input form ID started on PO Amoxicillin for 3 days HTN continue home meds COPD/Tobacco Use Disorder Nicotine patch no exacerbation Hx. of Seizure Disorder continue Keppra DVT ppx will D/C sub q heparin active colitis reports of blood in stool few days back ambulate SCD and teds ordered FULL CODE DISPOSITION expected to be discharged home when medically stable Medicine follow up with Dr Kaiser Vital Signs: Date Time Temp Pulse Resp B/P (MAP) Pulse Ox O2 Delivery O2 Flow Rate FiO2 10/11/16 16:00 Room Air 10/11/16 15:30 36.9 76 18 122/76 (91) 94 Room Air 10/11/16 10:49 Room Air 10/11/16 07:47 36.9 61 18 130/85 (100) 96 10/11/16 00:00 Room Air 10/10/16 23:30 36.8 60 18 125/75 (92) 94 Room Air Lab Results: Results Past 24 Hours Test 10/11/16 07:21 Range/Units White Blood Count 11.66 4.8-10.8 K/uL Red Blood Count 4.22 4.2-5.4 M/uL Hemoglobin 12.0 12.0-16.0 g/dL Hematocrit 37.6 37-47 % Mean Corpuscular Volume 89.1 80-100 fL Mean Corpuscular Hemoglobin 28.4 25-34 pg Mean Corpuscular Hemoglobin Concent 31.9 32-36 g/dl RDW Standard Deviation 52.4 36.4-46.3 fL RDW Coefficient of Variation 16.1 11.5-14.5 % Platelet Count 350 130-400 K/uL Mean Platelet Volume 8.8 7.4-10.4 fL Sodium Level 141 136-145 mmol/L Potassium Level 3.9 3.5-5.1 mmol/L Chloride Level 113 98-107 mmol/L Carbon Dioxide Level 20 21-32 mmol/L Anion Gap 8.0 3-11 mmol/L Blood Urea Nitrogen 7 7-18 mg/dl Creatinine 1.00 0.60-1.20 mg/dl Est Creatinine Clear Calc Drug Dose 68.6 ml/min Estimated GFR () 69.4 Estimated GFR (Non- 59.9 BUN/Creatinine Ratio 7.4 10-20 Random Glucose 89 70-99 mg/dl Calcium Level 6.3 8.5-10.1 mg/dl Magnesium Level 1.5 1.8-2.4 mg/dl
[2016-10-11] MEDS: SIMVASTATIN 20 MG TAB PO SCH (21:09)
[2016-10-11] MEDS: AMOXICILLIN 500 MG CAP PO SCH (21:15)
--- NOTE | 2016-10-11 21:39 | DIAGNOSTIC IMAGING REPORT ---
ABDOMEN AND PELVIS CT WITHOUT CONTRAST CT DOSE: 1285.37 mGy.cm HISTORY: Pain recurrent C diff /abdominal pain TECHNIQUE: Multiaxial CT images of the abdomen and pelvis were performed without contrast. COMPARISON STUDY: None. FINDINGS: Lung bases are clear. Liver is uniform. Several right renal cysts unchanged. Small posterior exophytic exophytic left renal cyst unchanged. Mild nonobstructive ileus. Postoperative changes to the bowel which of been described previously. Pancreas is uniform. Moderate enlargement left adrenal unchanged. Central abdominal wall infiltrative change and/or cellulitis. Superior to the umbilicus. No free fluid within the pelvic cul-de-sac. IMPRESSION: 1. Stable postoperative changes. 2. Stable bilateral renal cysts. 3. Mild ileus with no evidence for true obstructive change. 4. Moderate cellulitis of the anterior abdominal wall superior to the umbilicus. No evidence for drainable abscess or collection. Electronically signed by: Gilles Parson M.D. 10/11/2016 9:38 PM Dictated Date/Time: 10/11/2016 9:33 PM
[2016-10-11 23:41] VITALS: BP 144/95; PULSE 62; TEMP 37.2; O2SAT 96
[2016-10-12] MEDS: MoRPHine SULFATE 2 MG/ML CARP IV PRN ×2 (05:01→15:36)
[2016-10-12] MEDS: ONDANSETRON INJ 2 MG/ML 2 ML VIAL IV. SCH ×3 (06:35→18:04)
[2016-10-12 06:46] LABS: HEMATOCRIT 37.5 % (37-47); MEAN CELL VOLUME 89.9 fL (80-100); MEAN CORPUSCULAR HEMOGLOBIN 28.8 pg (25-34); MEAN PLATELET VOLUME 9.1 fL (7.4-10.4); PLATELET COUNT 342 K/uL (130-400); RED BLOOD COUNT 4.17 M/uL (4.2-5.4); WHITE BLOOD COUNT 12.66 K/uL (4.8-10.8)
[2016-10-12 07:11] LABS: BUN/CREATININE RATIO 7.8 (10-20); CALCIUM 7.1 mg/dl (8.5-10.1); MAGNESIUM 1.7 mg/dl (1.8-2.4); POTASSIUM 4.1 mmol/L (3.5-5.1)
[2016-10-12 07:29] VITALS: BP 146/75; PULSE 58; TEMP 36.8; O2SAT 98
--- NOTE | 2016-10-12 07:35 | Gastrointestinal Consultation ---
Gastrointestinal Consultation Date of Consultation: Oct 12, 2016 Attending Physician: Drake Consulting Physician: Aneesh Reason for Consultation: recurrent c.diff History of Present Illness Patient is a 61 year old female w/ PMH significant for chronic diarrhea, c.diff bladder CA s/p Luna pouch and others listed below who presented through the ED for evaluation of diarrhea. She was recently admitted and discharged 09/04/16 for a UTI and c.diff. This was treated with Flagyl however, her loose stools persisted. She had a screening colonoscopy on 10/02/16 at which point there was stool aspirated and sent to the lab. This was negative for c.diff. About 4-5 days after her colonoscopy she developed and acute worsening in her diarrhea with intermittent episodes of BRBPR. She was evaluated in the ED found to have a UTI and c.diff. She was seen and evaluated this AM. She tells me her diarrhea and abdominal cramping has improved since admission. She tells me yesterday AM she had about 14 BMs and this morning she has had 6. There is abdominal cramping with a sense of urgency prior to a BM. No chronic abdominal pain or discomfort. She denies fever, chills, chest pain, SOB. CT 10/11/16: Lung bases are clear. Liver is uniform. Several right renal cysts unchanged. Small posterior exophytic exophytic left renal cyst unchanged. Mild nonobstructive ileus. Postoperative changes to the bowel which of been described previously. Pancreas is uniform. Moderate enlargement left adrenal unchanged. Central abdominal wall infiltrative change and/or cellulitis. Superior to the umbilicus. No free fluid within the pelvic cul-de-sac. Colonoscopy 10/02/16: The descending colon, transverse colon, ascending colon and cecum are normal. Biopsied. Fluid aspiration performed.Diffuse mild inflammation was found in the recto-sigmoid colon secondary to left-sided colitis. Biopsied. Past Medical/Surgical History Medical Problems: (1) Acute renal failure Status: Acute (2) Anxiety State Nos Status: Chronic (3) C. difficile diarrhea Status: Acute (4) Confusion Status: Acute (5) Depression Status: Chronic (6) Esophageal Reflux Status: Chronic (7) HTN (hypertension) Status: Chronic (8) Hyperlipidemia Nec/Nos Status: Chronic (9) Hypocalcemia Status: Acute (10) Hypokalemia Status: Acute (11) Hypomagnesemia Status: Acute (12) Hypomagnesemia Status: Acute (13) Nausea & vomiting Status: Acute (14) Paresthesia Status: Acute (15) Seizure Status: Chronic (16) Sepsis Status: Acute (17) Urinary tract infection Status: Acute Surgical Problems: (1) Urinostomy Status Nec Status: Chronic Past Medical History: Bladder CA, COPD, tobacco abuse, anxiety, HTN, CKD-3, seizures, diarrhea, GERD, TIA, hyperlipidemia Past Surgical History: salpingo-oophorectomy, total knee arthroplasty hernia repair, total cystectomy w / luna pouch, urostomy, hysterectomy Family History FHx: cancer FHx: lung disease Hypertension Social History Smoking Status: Current Every Day Smoker Alcohol Use: none Marital Status: Housing Status: lives with family Occupation Status: retired Allergies Coded Allergies: No Known Drug Allergy (Verified Allergy, Unknown, NONE, 09/29/16) Current Medications Home Meds and Scripts Medications Dose Route/Sig Max Daily Dose Days Date Category Keppra (Levetiracetam) 500 Mg Tab 1 Tab PO BID 30 10/10/16 Reported Cholestyramine 4 Gm Pow 1 Pkt PO DAILY 10/09/16 Reported K-Tab (Potassium Chloride) 20 Meq Tab 1 Tab PO BID 09/29/16 Reported Plavix (Clopidogrel Bisulfate) 75 Mg Tab 75 Mg PO QAM 09/29/16 Reported Zocor (Simvastatin) 20 Mg Tab 20 Mg PO HS 09/29/16 Reported Vitamin B12 (Cyanocobalamin) 1,000 Mcg Tab 1 Tab PO QAM 09/29/16 Reported Paxil (Paroxetine HCl) 20 Mg Tab 20 Mg PO QAM 11/23/15 Reported Buspirone Hcl 10 Mg Tab 10 Mg PO BID 11/23/15 Reported Aspirin Ec (Aspirin) 81 Mg Tab 81 Mg PO QAM 04/08/14 Reported Prilosec (Omeprazole) 20 Mg Cap 20 Mg PO QAM 02/12/14 Reported Review of Systems Constitutional: No fever, No chills Respiratory: No cough, No shortness of breath Cardiac: No chest pain, No edema Abdomen: + pain, + diarrhea, + GI bleeding, No nausea, No vomiting, No constipation Physical Exam Date Time Temp Pulse Resp B/P (MAP) Pulse Ox O2 Delivery O2 Flow Rate FiO2 10/12/16 07:29 36.8 58 16 146/75 (98) 98 Room Air 10/12/16 00:30 Room Air 10/11/16 23:41 37.2 62 20 144/95 (111) 96 Room Air 10/11/16 16:00 Room Air 10/11/16 15:30 36.9 76 18 122/76 (91) 94 Room Air 10/11/16 10:49 Room Air 10/11/16 07:47 36.9 61 18 130/85 (100) 96 General Appearance: no apparent distress (pt is upright in bed and has just finished her breakfast) Eyes: PERRL ENT: hearing grossly normal Neck: supple Respiratory/Chest: lungs clear, normal breath sounds Cardiovascular: regular rate, rhythm Abdomen: normal bowel sounds, soft, no organomegaly Neurologic/Psych: alert, normal mood/affect, oriented x 3 Skin: normal color, no jaundice Laboratory Results Last 24 Hours Test 10/12/16 06:20 White Blood Count 12.66 K/uL Red Blood Count 4.17 M/uL Hemoglobin 12.0 g/dL Hematocrit 37.5 % Mean Corpuscular Volume 89.9 fL Mean Corpuscular Hemoglobin 28.8 pg Mean Corpuscular Hemoglobin Concent 32.0 g/dl RDW Standard Deviation 52.8 fL RDW Coefficient of Variation 15.9 % Platelet Count 342 K/uL Mean Platelet Volume 9.1 fL Sodium Level 143 mmol/L Potassium Level 4.1 mmol/L Chloride Level 114 mmol/L Carbon Dioxide Level 21 mmol/L Anion Gap 8.0 mmol/L Blood Urea Nitrogen 8 mg/dl Creatinine 1.00 mg/dl Est Creatinine Clear Calc Drug Dose 70.8 ml/min Estimated GFR () 69.4 Estimated GFR (Non- 59.9 BUN/Creatinine Ratio 7.8 Random Glucose 94 mg/dl Calcium Level 7.1 mg/dl Magnesium Level 1.7 mg/dl Impression Patient is a 61 year old female with chronic diarrhea and recurrent c.diff (August treated with Flagyl, negative c.diff in September during colonoscopy) with CT evidence of a mild ileus complicated by concurrent UTI. Recent colonoscopy pathology was neither inclusive/exclusive of microscopic colitis. She was instructed to hold Meloxicam and asses her symptoms. Today, her stool frequency is improving and her abdominal pain is limited to before a BM. Plan - Daily KUBs for evaluation of ileus symptoms are improving and minimal abd pain ? toxic megacolon Consider surgical evaluation - Vancomycin 125 QID x 21 days Consider vancomycin taper Appreciate ID input - Limit ABX for UTI Appreciate ID input - Low fiber diet as tolerated - Trial of BID colestipol bending resolution of ileus Review of daily weights reveals about a 10 lb weight gain since 10/10/16. GI will follow. Please call with any questions or concerns. ATTESTATION: I have performed a history and physical examination of this patient and reviewed the electronic record. Specifically, on physical examination there is no significant abdominal tenderness. I suspect that there is a significant underlying component of bile salt induced diarrhea. I have discussed the case with NEENA Anna. The above note reflects my findings, conclusions, and recommendations. Marshall Melendrez MD
[2016-10-12] MEDS: PANTOprazole SOD 40 MG TAB PO SCH (09:51)
[2016-10-12] MEDS: CYANOCOBALAMIN 500 MCG TAB (VIT B-12) PO SCH (09:51)
[2016-10-12] MEDS: PAROXETINE 20 MG TAB PO SCH (09:51)
[2016-10-12] MEDS: CLOPIDOGREL BISULFATE 75 MG TAB PO SCH (09:52)
[2016-10-12] MEDS: LEVETIRACETAM 500 MG TAB PO SCH ×2 (09:52→20:37)
[2016-10-12] MEDS: AMOXICILLIN 500 MG CAP PO SCH ×3 (09:52→20:38)
[2016-10-12] MEDS: ASPIRIN 81 MG ECTAB PO SCH (09:53)
[2016-10-12] MEDS: NICOTINE 21 MG/24 HR TDSY TD SCH (09:53)
[2016-10-12] MEDS: POTASSIUM CHLORIDE 20 MEQ TABCR PO SCH ×2 (09:53→20:39)
[2016-10-12] MEDS: RASPBERRY SYRUP 5 ML UDP PO SCH ×4 (10:02→20:38)
[2016-10-12] MEDS: VANCOMYCIN HCL 125 MG/2.5ML SOLN PO SCH (10:02)
--- NOTE | 2016-10-12 10:37 | Progress Note ---
Subjective Date of Service: Oct 12, 2016. Subjective Pt evaluation today including: conversation w/ patient, physical exam, chart review, lab review pt seen in follow up, on po vanco. no significant improvement, still with > 10 episodes of diarrhea/day. eating. no f/c. still with crampy abd pain. all remaining ros reviewed and are negative. Gi eval noted. ct done, no inflammation colon noted. no perforation. wbc slighlty elevated. had some leg cramps overnight. all remaining ros reviewed and are negative. Problem List Medical Problems: (1) Acute renal failure Status: Acute (2) Anxiety State Nos Status: Chronic (3) C. difficile diarrhea Status: Acute (4) Confusion Status: Acute (5) Depression Status: Chronic (6) Esophageal Reflux Status: Chronic (7) HTN (hypertension) Status: Chronic (8) Hyperlipidemia Nec/Nos Status: Chronic (9) Hypocalcemia Status: Acute (10) Hypokalemia Status: Acute (11) Hypomagnesemia Status: Acute (12) Hypomagnesemia Status: Acute (13) Nausea & vomiting Status: Acute (14) Paresthesia Status: Acute (15) Seizure Status: Chronic (16) Sepsis Status: Acute (17) Urinary tract infection Status: Acute Surgical Problems: (1) Urinostomy Status Nec Status: Chronic Objective Vital Signs Date Time Temp Pulse Resp B/P (MAP) Pulse Ox O2 Delivery O2 Flow Rate FiO2 10/12/16 07:29 36.8 58 16 146/75 (98) 98 Room Air 10/12/16 00:30 Room Air 10/11/16 23:41 37.2 62 20 144/95 (111) 96 Room Air 10/11/16 16:00 Room Air 10/11/16 15:30 36.9 76 18 122/76 (91) 94 Room Air 10/11/16 10:49 Room Air Physical Exam General Appearance: WD/WN, no apparent distress Eyes: normal inspection, EOMI Neck: supple Respiratory/Chest: lungs clear Cardiovascular: regular rate, rhythm, no edema Abdomen: non tender, soft Extremities: non-tender, normal inspection, no pedal edema Neurologic/Psychiatric: alert, oriented x 3 Skin: normal color Laboratory Results Item Value Date Time Urine Culture - Final Complete 10/09/161954 Urine , Clean Catch Enterococcus Faecalis C.difficile Toxin B Gene (PCR) - Final Complete 10/09/161954 Stool Positive for C. difficile toxin B gene Last 24 Hours Test 10/12/16 06:20 White Blood Count 12.66 K/uL Red Blood Count 4.17 M/uL Hemoglobin 12.0 g/dL Hematocrit 37.5 % Mean Corpuscular Volume 89.9 fL Mean Corpuscular Hemoglobin 28.8 pg Mean Corpuscular Hemoglobin Concent 32.0 g/dl RDW Standard Deviation 52.8 fL RDW Coefficient of Variation 15.9 % Platelet Count 342 K/uL Mean Platelet Volume 9.1 fL Sodium Level 143 mmol/L Potassium Level 4.1 mmol/L Chloride Level 114 mmol/L Carbon Dioxide Level 21 mmol/L Anion Gap 8.0 mmol/L Blood Urea Nitrogen 8 mg/dl Creatinine 1.00 mg/dl Est Creatinine Clear Calc Drug Dose 70.8 ml/min Estimated GFR () 69.4 Estimated GFR (Non- 59.9 BUN/Creatinine Ratio 7.8 Random Glucose 94 mg/dl Calcium Level 7.1 mg/dl Magnesium Level 1.7 mg/dl Assessment and Plan (1) C. difficile colitis Assessment & Plan: no improvement with po vanco, will trial dificid (2) Urinary tract infection (3) Leukocytosis
[2016-10-12] MEDS: VANCOMYCIN HCL 250 MG/5 ML SOLN PO SCH ×3 (13:12→20:38)
[2016-10-12 15:39] VITALS: BP 121/71; PULSE 54; TEMP 36.9; O2SAT 96
[2016-10-12] MEDS: HYDROmorphone INJ 1 MG/ML SYR IV PRN (19:07)
[2016-10-12] MEDS ORDERED: MAGNESIUM SULFATE 1GM / D5W 1 GM in PREMIXED IN D5W 100 ML IV ONE (19:45)
--- NOTE | 2016-10-12 19:49 | Progress Note ---
Internal Med Progress Note Date of Service: Oct 12, 2016. Provider Documentation: SUBJECTIVE: still having diarrhea approx 8 times today having ongoing pain in lower abdomen -throbbing , not related to bowel movement OBJECTIVE: Vital Signs-as noted below Exam: General-no sign of distress Eyes-sclera non icteric Lungs-CTA Heart-regular S1/S2 Abdomen-soft, healed surgical scan in mid abdomen, + tenderness in lower abdomen , erythema near mid abdomen hernia repair site , no open wound Ana pouch opening on lower left abdomen /lateral to umbilicus, opening appears to be very narrow , with surrounding erythema , tenderness active bowel sound Extremities-no rash or deformity Neuro-AAO x3, no focal neurological deficit Lab data as noted below. ASSESSMENT & PLAN: This is a 61 year old female with a PMH of bladder CA s/p cystectomy and now intermittent self catheterizations and recurrent UTIs, COPD, HTN, CKD stage 3 - recent admission with UTI and C. Diff - presents with diarrhea C. Diff Colitis recent discharged with a 10 day supply of Flagyl for C. Diff ( stool c diff positive on 10/05/16 ) pt mentions of taking Meds religiously has not missed any dose diarrhea persisted had colonoscopy on Monday, October 03 -by Dr Claire Milton -showed normal exam of descending colon , transverse colon , ascending colon -diffuse mild inflammation characterized by congestion ( edema ) , erythema and granularity was found in recto-sigmoid Biopsy taken : Pathology : Colon : mild acute/chronic inflammation of the lamina propria increased intraepithelial lymphocytes are not seen pt started on PO vancomycin for ongoing Diarrhea /C diff Stool specimen positive for C diff this admission as well presented with abdominal pain /worsening of diarrhea /stool incontinence associated with Leukocytosis appreciate input form ID started to Dificid trial to see improvement of C diff infection CT abdomen /pelvis : 10/11/16 - Mild ileus with no evidence for true obstructive change. -Moderate cellulitis of the anterior abdominal wall superior to the umbilicus. No evidence for drainable abscess or collection. appreciate input form GI pt will need to continue tx for C diff later may benefit form Colestid -for possible bile acid causing chronic diarrhea ABDOMINAL WALL CELLULITIS ; evident in CT abdomen /pelvis pt mentions of having lower abdominal pain past few weeks has ana pouch opening lateral to umbilicus opening has been very stenotic pt mentions of having increased difficulty doing straight cath through that opening noticed blood in few occasions was scheduled to be at [facility] tomorrow for dilatation of the stoma possible source of cellulitis could be abdominal wall trauma due to narrow stoma and catheter manipulation General surgery team consulted will D/w ID for role of abx in this setting Acute Kidney Injury superimposed on CKD stage 3 secondary to diarrhea improved with IV fluids follow PRP Hypokalemia, Hypomagnesemia secondary to diarrhea/GI loss improved follow Lytes and correct as indicated UTI Hx of bladder CA s/p Cystectomy/ Recurrent UTIs due to self-catheterizations patient presents with recurrent UTIs; recent treatment 3 weeks prior urine culture enterococcus appreciate input form ID started on PO Amoxicillin for 3 days WT GAIN OF APPROX 10 LB : possible due to vol overload pt also developed increased ankle edema since this admission pt received approx 3 L IV fluids since admission for diarrhea /GI loss/ATN renal function improved to baseline trial of Lasix ordered follow daily wt /input /out put HTN continue home meds COPD/Tobacco Use Disorder Nicotine patch no exacerbation Hx. of Seizure Disorder continue Keppra DVT ppx will D/C sub q heparin active colitis reports of blood in stool few days back ambulate SCD and teds ordered FULL CODE DISPOSITION expected to be discharged home when medically stable Medicine follow up with Dr Kaiser Vital Signs: Date Time Temp Pulse Resp B/P (MAP) Pulse Ox O2 Delivery O2 Flow Rate FiO2 10/12/16 16:00 Room Air 10/12/16 15:39 36.9 54 18 121/71 (88) 96 Room Air 10/12/16 10:32 Room Air 10/12/16 07:29 36.8 58 16 146/75 (98) 98 Room Air 10/12/16 00:30 Room Air 10/11/16 23:41 37.2 62 20 144/95 (111) 96 Room Air Lab Results: Results Past 24 Hours Test 10/12/16 06:20 Range/Units White Blood Count 12.66 4.8-10.8 K/uL Red Blood Count 4.17 4.2-5.4 M/uL Hemoglobin 12.0 12.0-16.0 g/dL Hematocrit 37.5 37-47 % Mean Corpuscular Volume 89.9 80-100 fL Mean Corpuscular Hemoglobin 28.8 25-34 pg Mean Corpuscular Hemoglobin Concent 32.0 32-36 g/dl RDW Standard Deviation 52.8 36.4-46.3 fL RDW Coefficient of Variation 15.9 11.5-14.5 % Platelet Count 342 130-400 K/uL Mean Platelet Volume 9.1 7.4-10.4 fL Sodium Level 143 136-145 mmol/L Potassium Level 4.1 3.5-5.1 mmol/L Chloride Level 114 98-107 mmol/L Carbon Dioxide Level 21 21-32 mmol/L Anion Gap 8.0 3-11 mmol/L Blood Urea Nitrogen 8 7-18 mg/dl Creatinine 1.00 0.60-1.20 mg/dl Est Creatinine Clear Calc Drug Dose 70.8 ml/min Estimated GFR () 69.4 Estimated GFR (Non- 59.9 BUN/Creatinine Ratio 7.8 10-20 Random Glucose 94 70-99 mg/dl Calcium Level 7.1 8.5-10.1 mg/dl Magnesium Level 1.7 1.8-2.4 mg/dl
[2016-10-12] MEDS: SIMVASTATIN 20 MG TAB PO SCH (20:40)
[2016-10-12] MEDS: FIDAXOMICIN TAB 200 MG TAB PO SCH (20:40)
[2016-10-13 00:04] VITALS: BP 141/82; PULSE 98; TEMP 36.7; O2SAT 98
[2016-10-13] MEDS: ONDANSETRON INJ 2 MG/ML 2 ML VIAL IV. SCH ×4 (00:41→17:21)
[2016-10-13] MEDS: HYDROmorphone INJ 1 MG/ML SYR IV PRN ×2 (00:53→05:26)
[2016-10-13 07:30] LABS: HEMATOCRIT 38.1 % (37-47); MEAN CELL VOLUME 91.1 fL (80-100); MEAN CORPUSCULAR HGB CONC 30.7 g/dl (32-36); PLATELET COUNT 360 K/uL (130-400); RED BLOOD COUNT 4.18 M/uL (4.2-5.4); WHITE BLOOD COUNT 13.57 K/uL (4.8-10.8)
--- NOTE | 2016-10-13 07:42 | DIAGNOSTIC IMAGING REPORT ---
KUB CLINICAL HISTORY: c.diff, ileus, please measure distention COMPARISON STUDY: 11/03/2014 FINDINGS: The soft tissues, psoas shadows, renal outlines and intestinal gas pattern appear normal. There is no evidence for bowel obstruction. No abnormal abdominal calcifications are seen. Bowel pattern is nonobstructive. No evidence of bowel distention. IMPRESSION: Normal study. Electronically signed by: Gilles Parson M.D. 10/13/2016 7:41 AM Dictated Date/Time: 10/13/2016 7:39 AM
[2016-10-13 07:59] LABS: BUN/CREATININE RATIO 10.2 (10-20); CALCIUM 7.6 mg/dl (8.5-10.1); MAGNESIUM 1.8 mg/dl (1.8-2.4)
[2016-10-13 08:05] VITALS: BP 119/77; PULSE 56; TEMP 36.6; O2SAT 95
[2016-10-13] MEDS: PAROXETINE 20 MG TAB PO SCH (08:32)
[2016-10-13] MEDS: CYANOCOBALAMIN 500 MCG TAB (VIT B-12) PO SCH (08:32)
[2016-10-13] MEDS: ASPIRIN 81 MG ECTAB PO SCH (08:32)
[2016-10-13] MEDS: CLOPIDOGREL BISULFATE 75 MG TAB PO SCH (08:32)
[2016-10-13] MEDS: AMOXICILLIN 500 MG CAP PO SCH ×3 (08:33→21:32)
[2016-10-13] MEDS: VANCOMYCIN HCL 250 MG/5 ML SOLN PO SCH ×4 (08:33→21:33)
[2016-10-13] MEDS: PANTOprazole SOD 40 MG TAB PO SCH (08:33)
[2016-10-13] MEDS: RASPBERRY SYRUP 5 ML UDP PO SCH ×4 (08:33→21:33)
[2016-10-13] MEDS: FUROSEMIDE 20 MG TAB PO SCH (08:34)
[2016-10-13] MEDS: LEVETIRACETAM 500 MG TAB PO SCH ×2 (08:34→21:31)
[2016-10-13] MEDS: POTASSIUM CHLORIDE 20 MEQ TABCR PO SCH ×2 (08:34→21:33)
[2016-10-13] MEDS: NICOTINE 21 MG/24 HR TDSY TD SCH (08:35)
--- NOTE | 2016-10-13 08:54 | Gastroenterology Progress Note ---
Progress Note Date of Service: Oct 13, 2016 Subjective Pt evaluation today including: conversation w/ patient, physical exam Pt was seen and evaluated this AM. No acute events overnight. Was started on a higher dose of vancomycin with addition of Dificid. She tells me she feels as if her stool frequency has decreased. Still having generalized abdominal pain. More crampy before a BM. No fever, chills, chest pain, SOB. KUB 10/13/16: The soft tissues, psoas shadows, renal outlines and intestinal gas pattern appear normal. There is no evidence for bowel obstruction. No abnormal abdominal calcifications are seen. Bowel pattern is nonobstructive. No evidence of bowel distention. Review of Systems Constitutional: No fever, No chills Respiratory: No cough Cardiac: No chest pain Abdomen: + pain, + diarrhea, No nausea, No vomiting, No constipation, No GI bleeding Medications Current Inpatient Medications Medications (Trade) Dose Ordered Sig/Sujit Route Start Time Stop Time Status Last Admin Dose Admin Nicotine (Nicoderm Cq 21MG Patch) 1 patch QAM TD 10/10/16 08:00 11/09/16 08:59 10/13/16 08:35 1 PATCH Miscellaneous (Remove Nicoderm Patch) 1 ea HS N/A 10/10/16 21:00 11/09/16 20:59 Ondansetron HCl (Zofran Inj) 4 mg Q6H IV. 10/10/16 00:00 11/09/16 00:00 10/13/16 05:26 4 MG Aspirin (Ecotrin Tab) 81 mg QAM PO 10/10/16 08:00 11/09/16 07:59 10/13/16 08:32 81 MG Clopidogrel Bisulfate (plAVix TAB) 75 mg QAM PO 10/10/16 08:00 11/09/16 07:59 10/13/16 08:32 75 MG Levetiracetam (Keppra Tab) 500 mg BID PO 10/10/16 08:00 11/09/16 07:59 10/13/16 08:34 500 MG Paroxetine HCl (pAXil TAB) 20 mg QAM PO 10/10/16 08:00 11/09/16 07:59 10/13/16 08:32 20 MG Simvastatin (Zocor Tab) 20 mg HS PO 10/10/16 22:00 11/09/16 21:59 10/12/16 20:40 20 MG Buspirone HCl (Buspar Tab) 10 mg BID PO 10/10/16 08:00 11/09/16 07:59 10/13/16 08:32 10 MG Cyanocobalamin (Vitamin B-12 Tab) 1,000 mcg QAM PO 10/10/16 08:00 11/09/16 07:59 10/13/16 08:32 1,000 MCG Pantoprazole Sodium (Protonix Tab) 40 mg QAM PO 10/10/16 08:00 11/09/16 07:59 10/13/16 08:33 40 MG Potassium Chloride (Klor-Con Tab) 20 meq BID PO 10/10/16 08:00 11/09/16 07:59 10/13/16 08:34 20 MEQ Raspberry (Raspberry Syrup 5ml Cup) 5 ml QID PO 10/10/16 04:30 10/24/16 04:29 10/13/16 08:33 5 ML Amoxicillin (Amoxil Cap) 500 mg TID PO 10/11/16 20:00 10/16/16 19:59 10/13/16 08:33 500 MG Fidaxomicin (Dificid Tab) 200 mg BID PO 10/12/16 20:00 10/26/16 19:59 10/12/16 20:40 200 MG Vancomycin HCl (Vancomycin Oral Soln) 250 mg QID PO 10/12/16 12:00 10/26/16 11:59 10/13/16 08:33 250 MG Cyclobenzaprine HCl (Flexeril Tab) 5 mg TID PRN PO 10/12/16 18:30 11/11/16 18:29 Furosemide (Lasix Tab) 20 mg QAM PO 10/13/16 08:00 11/12/16 07:59 10/13/16 08:34 20 MG Tramadol HCl (Ultram Tab) 50 mg Q4H PRN PO 10/13/16 09:00 11/12/16 08:59 UNV Objective Vital Signs Date Time Temp Pulse Resp B/P (MAP) Pulse Ox O2 Delivery O2 Flow Rate FiO2 10/13/16 08:05 36.6 56 18 119/77 (91) 95 Room Air 10/13/16 00:30 Room Air 10/13/16 00:04 36.7 98 18 141/82 (101) 98 Room Air 10/12/16 16:00 Room Air 10/12/16 15:39 36.9 54 18 121/71 (88) 96 Room Air 10/12/16 10:32 Room Air Physical Exam General Appearance: no apparent distress (pt was sleeping, woke up prompty to her name ) Eyes: PERRL ENT: hearing grossly normal Respiratory/Chest: lungs clear, normal breath sounds Cardiovascular: regular rate, rhythm Abdomen: normal bowel sounds, soft, no organomegaly, + tenderness (generalized tenderness) Neurologic/Psych: alert, normal mood/affect, oriented x 3 Skin: normal color Laboratory Results Last 24 Hours Test 10/13/16 06:55 White Blood Count 13.57 K/uL Red Blood Count 4.18 M/uL Hemoglobin 11.7 g/dL Hematocrit 38.1 % Mean Corpuscular Volume 91.1 fL Mean Corpuscular Hemoglobin 28.0 pg Mean Corpuscular Hemoglobin Concent 30.7 g/dl RDW Standard Deviation 53.5 fL RDW Coefficient of Variation 16.0 % Platelet Count 360 K/uL Mean Platelet Volume 9.0 fL Sodium Level 142 mmol/L Potassium Level 4.0 mmol/L Chloride Level 113 mmol/L Carbon Dioxide Level 24 mmol/L Anion Gap 5.0 mmol/L Blood Urea Nitrogen 10 mg/dl Creatinine 1.00 mg/dl Est Creatinine Clear Calc Drug Dose 70.8 ml/min Estimated GFR () 69.4 Estimated GFR (Non- 59.9 BUN/Creatinine Ratio 10.2 Random Glucose 93 mg/dl Calcium Level 7.6 mg/dl Magnesium Level 1.8 mg/dl Assessment and Plan Patient is a 61 year old female with chronic diarrhea and recurrent c.diff (August treated with Flagyl, negative c.diff in September during colonoscopy) with CT evidence of a mild ileus complicated by concurrent UTI. Recent colonoscopy pathology was neither inclusive/exclusive of microscopic colitis. She was instructed to hold Meloxicam and asses her symptoms. Today, her stool frequency is improving abdominal pain persists. ? of bile salts diarrhea at baseline Plan - KUBs for evaluation of ileus no evidence of ileus - Vancomycin QID x 21 days Consider vancomycin taper Appreciate ID input - Limit ABX for UTI Appreciate ID input - Low fiber diet as tolerated - Trial of BID colestipol Please call with any questions or concerns. ATTESTATION: I have performed a history and physical examination of this patient and reviewed the electronic record. Specifically, on physical examination there is mild abdominal tenderness. I have discussed the case with NEENA Anna. The above note reflects my findings, conclusions, and recommendations. Marshall Melendrez MD
[2016-10-13] MEDS: FIDAXOMICIN TAB 200 MG TAB PO SCH ×2 (09:23→21:30)
[2016-10-13] MEDS: CYCLOBENZAPRINE HCL 5 MG TAB PO PRN ×2 (11:16→17:18)
[2016-10-13] MEDS: TRAMADOL HCL 50 MG TAB PO PRN ×2 (12:18→17:18)
--- NOTE | 2016-10-13 12:40 | Surgery Consultation ---
Consultation Date of Consultation: Oct 13, 2016. Attending Physician: Nahed Juan M.D. History of Present Illness pt here for recurrent c.diff colitis. consult is for abdominal wall cellulitis. pt states that ever since her hernia surgery she has had some discoloration near her hernia incision. occ bothers her but most of the time she is completely asymptomatic from it. not red just discolored. she does state that at times it feels warm. no drainage. Past Medical/Surgical History Medical Problems: (1) Acute renal failure Status: Acute (2) Anxiety State Nos Status: Chronic (3) C. difficile diarrhea Status: Acute (4) Confusion Status: Acute (5) Depression Status: Chronic (6) Esophageal Reflux Status: Chronic (7) HTN (hypertension) Status: Chronic (8) Hyperlipidemia Nec/Nos Status: Chronic (9) Hypocalcemia Status: Acute (10) Hypokalemia Status: Acute (11) Hypomagnesemia Status: Acute (12) Hypomagnesemia Status: Acute (13) Nausea & vomiting Status: Acute (14) Paresthesia Status: Acute (15) Seizure Status: Chronic (16) Sepsis Status: Acute (17) Urinary tract infection Status: Acute Surgical Problems: (1) Urinostomy Status Nec Status: Chronic Family History FHx: cancer FHx: lung disease Hypertension Social History Smoking Status: Current Every Day Smoker Alcohol Use: none Marital Status: Housing Status: lives with family Occupation Status: retired Allergies Coded Allergies: No Known Drug Allergy (Verified Allergy, Unknown, NONE, 09/29/16) Home Medications Scheduled Aspirin (Aspirin Ec), 81 MG PO QAM Buspirone Hcl (Buspirone Hcl), 10 MG PO BID Cholestyramine (Cholestyramine), 1 PKT PO DAILY Clopidogrel (Plavix), 75 MG PO QAM Cyanocobalamin (Vitamin B12), 1 TAB PO QAM Levetiracetam (Keppra), 1 TAB PO BID Omeprazole (Prilosec), 20 MG PO QAM Paroxetine (Paxil), 20 MG PO QAM Potassium Chloride (K-Tab), 1 TAB PO BID Simvastatin (Zocor), 20 MG PO HS Current Inpatient Medications Current Inpatient Medications Medications (Trade) Dose Ordered Sig/Sujit Route Start Time Stop Time Status Last Admin Dose Admin Nicotine (Nicoderm Cq 21MG Patch) 1 patch QAM TD 10/10/16 08:00 11/09/16 08:59 10/13/16 08:35 1 PATCH Miscellaneous (Remove Nicoderm Patch) 1 ea HS N/A 10/10/16 21:00 11/09/16 20:59 Ondansetron HCl (Zofran Inj) 4 mg Q6H IV. 10/10/16 00:00 11/09/16 00:00 10/13/16 12:17 4 MG Aspirin (Ecotrin Tab) 81 mg QAM PO 10/10/16 08:00 11/09/16 07:59 10/13/16 08:32 81 MG Clopidogrel Bisulfate (plAVix TAB) 75 mg QAM PO 10/10/16 08:00 11/09/16 07:59 10/13/16 08:32 75 MG Levetiracetam (Keppra Tab) 500 mg BID PO 10/10/16 08:00 11/09/16 07:59 10/13/16 08:34 500 MG Paroxetine HCl (pAXil TAB) 20 mg QAM PO 10/10/16 08:00 11/09/16 07:59 10/13/16 08:32 20 MG Simvastatin (Zocor Tab) 20 mg HS PO 10/10/16 22:00 11/09/16 21:59 10/12/16 20:40 20 MG Buspirone HCl (Buspar Tab) 10 mg BID PO 10/10/16 08:00 11/09/16 07:59 10/13/16 08:32 10 MG Cyanocobalamin (Vitamin B-12 Tab) 1,000 mcg QAM PO 10/10/16 08:00 11/09/16 07:59 10/13/16 08:32 1,000 MCG Pantoprazole Sodium (Protonix Tab) 40 mg QAM PO 10/10/16 08:00 11/09/16 07:59 10/13/16 08:33 40 MG Potassium Chloride (Klor-Con Tab) 20 meq BID PO 10/10/16 08:00 11/09/16 07:59 10/13/16 08:34 20 MEQ Raspberry (Raspberry Syrup 5ml Cup) 5 ml QID PO 10/10/16 04:30 10/24/16 04:29 10/13/16 12:17 5 ML Amoxicillin (Amoxil Cap) 500 mg TID PO 10/11/16 20:00 10/16/16 19:59 10/13/16 08:33 500 MG Fidaxomicin (Dificid Tab) 200 mg BID PO 10/12/16 20:00 10/26/16 19:59 10/13/16 09:23 200 MG Vancomycin HCl (Vancomycin Oral Soln) 250 mg QID PO 10/12/16 12:00 10/26/16 11:59 10/13/16 12:17 250 MG Cyclobenzaprine HCl (Flexeril Tab) 5 mg TID PRN PO 10/12/16 18:30 11/11/16 18:29 10/13/16 11:16 5 MG Furosemide (Lasix Tab) 20 mg QAM PO 10/13/16 08:00 11/12/16 07:59 10/13/16 08:34 20 MG Tramadol HCl (Ultram Tab) 50 mg Q4H PRN PO 10/13/16 09:00 11/12/16 08:59 10/13/16 12:18 50 MG Colestipol HCl (Colestid Tab) 1 gm BID PO 10/13/16 20:00 11/12/16 19:59 Review of Systems Abdomen: + diarrhea Physical Exam Date Time Temp Pulse Resp B/P (MAP) Pulse Ox O2 Delivery O2 Flow Rate FiO2 10/13/16 08:05 36.6 56 18 119/77 (91) 95 Room Air 10/13/16 08:00 Room Air 10/13/16 00:30 Room Air 10/13/16 00:04 36.7 98 18 141/82 (101) 98 Room Air 10/12/16 16:00 Room Air 10/12/16 15:39 36.9 54 18 121/71 (88) 96 Room Air General Appearance: no apparent distress Head: normocephalic, atraumatic Eyes: PERRL, EOMI ENT: hearing grossly normal Neck: supple, no JVD Respiratory/Chest: no respiratory distress, no accessory muscle use Abdomen/GI: + pertinent finding (soft. nt. small area of discoloration near top of her midline incsion. no redness. not warm to touch. nontender. hernia repair feels solid. ) Neurologic/Psych: alert, oriented x 3 Laboratory Results Last 24 Hours Test 10/13/16 06:55 White Blood Count 13.57 K/uL Red Blood Count 4.18 M/uL Hemoglobin 11.7 g/dL Hematocrit 38.1 % Mean Corpuscular Volume 91.1 fL Mean Corpuscular Hemoglobin 28.0 pg Mean Corpuscular Hemoglobin Concent 30.7 g/dl RDW Standard Deviation 53.5 fL RDW Coefficient of Variation 16.0 % Platelet Count 360 K/uL Mean Platelet Volume 9.0 fL Sodium Level 142 mmol/L Potassium Level 4.0 mmol/L Chloride Level 113 mmol/L Carbon Dioxide Level 24 mmol/L Anion Gap 5.0 mmol/L Blood Urea Nitrogen 10 mg/dl Creatinine 1.00 mg/dl Est Creatinine Clear Calc Drug Dose 70.8 ml/min Estimated GFR () 69.4 Estimated GFR (Non- 59.9 BUN/Creatinine Ratio 10.2 Random Glucose 93 mg/dl Calcium Level 7.6 mg/dl Magnesium Level 1.8 mg/dl Assessment & Plan discoloration of abdomen may be a reaction to the mesh. there is some inflammation on ct scan of abdominal wall minimally /rarely symptomatic nothing urgent to do will have her f/u with Dr. Pandey in office in a couple of weeks after d/c doubt true mesh infection.
--- NOTE | 2016-10-13 12:55 | Progress Note ---
Subjective Date of Service: Oct 13, 2016. Subjective no overnight events. afebrile. wbc increased, on amox, last dose today. for dificid tonight. Problem List Medical Problems: (1) Acute renal failure Status: Acute (2) Anxiety State Nos Status: Chronic (3) C. difficile diarrhea Status: Acute (4) Confusion Status: Acute (5) Depression Status: Chronic (6) Esophageal Reflux Status: Chronic (7) HTN (hypertension) Status: Chronic (8) Hyperlipidemia Nec/Nos Status: Chronic (9) Hypocalcemia Status: Acute (10) Hypokalemia Status: Acute (11) Hypomagnesemia Status: Acute (12) Hypomagnesemia Status: Acute (13) Nausea & vomiting Status: Acute (14) Paresthesia Status: Acute (15) Seizure Status: Chronic (16) Sepsis Status: Acute (17) Urinary tract infection Status: Acute Surgical Problems: (1) Urinostomy Status Nec Status: Chronic Objective Vital Signs Date Time Temp Pulse Resp B/P (MAP) Pulse Ox O2 Delivery O2 Flow Rate FiO2 10/13/16 08:05 36.6 56 18 119/77 (91) 95 Room Air 10/13/16 08:00 Room Air 10/13/16 00:30 Room Air 10/13/16 00:04 36.7 98 18 141/82 (101) 98 Room Air 10/12/16 16:00 Room Air 10/12/16 15:39 36.9 54 18 121/71 (88) 96 Room Air Laboratory Results Item Value Date Time C.difficile Toxin B Gene (PCR) - Final Complete 10/09/161954 Stool Positive for C. difficile toxin B gene Urine Culture - Final Complete 10/09/161954 Urine , Clean Catch Enterococcus Faecalis Last 24 Hours Test 10/13/16 06:55 White Blood Count 13.57 K/uL Red Blood Count 4.18 M/uL Hemoglobin 11.7 g/dL Hematocrit 38.1 % Mean Corpuscular Volume 91.1 fL Mean Corpuscular Hemoglobin 28.0 pg Mean Corpuscular Hemoglobin Concent 30.7 g/dl RDW Standard Deviation 53.5 fL RDW Coefficient of Variation 16.0 % Platelet Count 360 K/uL Mean Platelet Volume 9.0 fL Sodium Level 142 mmol/L Potassium Level 4.0 mmol/L Chloride Level 113 mmol/L Carbon Dioxide Level 24 mmol/L Anion Gap 5.0 mmol/L Blood Urea Nitrogen 10 mg/dl Creatinine 1.00 mg/dl Est Creatinine Clear Calc Drug Dose 70.8 ml/min Estimated GFR () 69.4 Estimated GFR (Non- 59.9 BUN/Creatinine Ratio 10.2 Random Glucose 93 mg/dl Calcium Level 7.6 mg/dl Magnesium Level 1.8 mg/dl Assessment and Plan (1) C. difficile colitis Assessment & Plan: will start dificid, can stop vaco once started. follow response. (2) Urinary tract infection (3) Leukocytosis
[2016-10-13 15:25] VITALS: BP 157/81; PULSE 64; TEMP 36.9; O2SAT 98
--- NOTE | 2016-10-13 16:09 | Progress Note ---
Internal Med Progress Note Date of Service: Oct 13, 2016. Provider Documentation: SUBJECTIVE: diarrhea has improved still having intermittent abdominal pain /cramps OBJECTIVE: Vital Signs-as noted below Exam: General-no sign of distress Eyes-sclera non icteric Lungs-CTA Heart-regular S1/S2 Abdomen-soft, healed surgical scan in mid abdomen, + tenderness in lower abdomen , erythema near mid abdomen hernia repair site , no open wound Ana pouch opening on lower left abdomen /lateral to umbilicus, opening appears to be very narrow , with surrounding erythema , tenderness active bowel sound Extremities-no rash or deformity Neuro-AAO x3, no focal neurological deficit Lab data as noted below. ASSESSMENT & PLAN: This is a 61 year old female with a PMH of bladder CA s/p cystectomy and now intermittent self catheterizations and recurrent UTIs, COPD, HTN, CKD stage 3 - recent admission with UTI and C. Diff - presents with diarrhea C. Diff Colitis recent discharged with a 10 day supply of Flagyl for C. Diff ( stool c diff positive on 10/05/16 ) pt mentions of taking Meds religiously has not missed any dose diarrhea persisted had colonoscopy on Monday, October 03 -by Dr Claire Milton -showed normal exam of descending colon , transverse colon , ascending colon -diffuse mild inflammation characterized by congestion ( edema ) , erythema and granularity was found in recto-sigmoid Biopsy taken : Pathology : Colon : mild acute/chronic inflammation of the lamina propria increased intraepithelial lymphocytes are not seen pt started on PO vancomycin for ongoing Diarrhea /C diff Stool specimen positive for C diff this admission as well presented with abdominal pain /worsening of diarrhea /stool incontinence associated with Leukocytosis appreciate input form ID started to Dificid trial to see improvement of C diff infection CT abdomen /pelvis : 10/11/16 - Mild ileus with no evidence for true obstructive change. -Moderate cellulitis of the anterior abdominal wall superior to the umbilicus. No evidence for drainable abscess or collection. appreciate input form GI pt will need to continue tx for C diff PO vancomycin for 21 days then possible taper started on Colestid -for possible bile acid causing chronic diarrhea ABDOMINAL WALL CELLULITIS ; evident in CT abdomen /pelvis pt mentions of having lower abdominal pain past few weeks has ana pouch opening lateral to umbilicus opening has been very stenotic pt mentions of having increased difficulty doing straight cath through that opening noticed blood in few occasions was scheduled to be at [facility] tomorrow for dilatation of the stoma possible source of cellulitis could be abdominal wall trauma due to narrow stoma and catheter manipulation General surgery team consulted -appreciate input no surgical intervention indicated does not belief hernia mesh infection cont to monitor recommend out pt surgery follow up will need to reschedule urology appointment at [place] for stenosis in the opening of [place] pouch stoma Acute Kidney Injury superimposed on CKD stage 3 secondary to diarrhea improved with IV fluids IVF D/danielle follow PRP Hypokalemia, Hypomagnesemia secondary to diarrhea/GI loss resolved UTI Hx of bladder CA s/p Cystectomy/ Recurrent UTIs due to self-catheterizations patient presents with recurrent UTIs; recent treatment 3 weeks prior urine culture enterococcus appreciate input form ID started on PO Amoxicillin for 3 days WT GAIN OF APPROX 10 LB : possible due to vol overload pt also developed increased ankle edema since this admission pt received approx 3 L IV fluids since admission for diarrhea /GI loss/ATN renal function improved to baseline trial of Lasix ordered follow daily wt /input /out put HTN continue home meds COPD/Tobacco Use Disorder Nicotine patch no exacerbation Hx. of Seizure Disorder continue Keppra DVT ppx will D/C sub q heparin active colitis reports of blood in stool few days back ambulate SCD and teds ordered FULL CODE DISPOSITION expected to be discharged home when medically stable Medicine follow up with Dr Kaiser Vital Signs: Date Time Temp Pulse Resp B/P (MAP) Pulse Ox O2 Delivery O2 Flow Rate FiO2 10/13/16 15:25 36.9 64 16 157/81 (106) 98 Room Air 10/13/16 08:05 36.6 56 18 119/77 (91) 95 Room Air 10/13/16 08:00 Room Air 10/13/16 00:30 Room Air 10/13/16 00:04 36.7 98 18 141/82 (101) 98 Room Air Lab Results: Results Past 24 Hours Test 10/13/16 06:55 Range/Units White Blood Count 13.57 4.8-10.8 K/uL Red Blood Count 4.18 4.2-5.4 M/uL Hemoglobin 11.7 12.0-16.0 g/dL Hematocrit 38.1 37-47 % Mean Corpuscular Volume 91.1 80-100 fL Mean Corpuscular Hemoglobin 28.0 25-34 pg Mean Corpuscular Hemoglobin Concent 30.7 32-36 g/dl RDW Standard Deviation 53.5 36.4-46.3 fL RDW Coefficient of Variation 16.0 11.5-14.5 % Platelet Count 360 130-400 K/uL Mean Platelet Volume 9.0 7.4-10.4 fL Sodium Level 142 136-145 mmol/L Potassium Level 4.0 3.5-5.1 mmol/L Chloride Level 113 98-107 mmol/L Carbon Dioxide Level 24 21-32 mmol/L Anion Gap 5.0 3-11 mmol/L Blood Urea Nitrogen 10 7-18 mg/dl Creatinine 1.00 0.60-1.20 mg/dl Est Creatinine Clear Calc Drug Dose 70.8 ml/min Estimated GFR () 69.4 Estimated GFR (Non- 59.9 BUN/Creatinine Ratio 10.2 10-20 Random Glucose 93 70-99 mg/dl Calcium Level 7.6 8.5-10.1 mg/dl Magnesium Level 1.8 1.8-2.4 mg/dl
[2016-10-13] MEDS ORDERED: FLX5 PO (16:12)
[2016-10-13] MEDS ORDERED: CLS1 PO (16:12)
--- NOTE | 2016-10-13 16:13 | Discharge Instructions ---
Discharge Instructions Date of Service Oct 13, 2016. Admission Reason for Admission: Diarrhea Discharge Discharge Diagnosis / Problem: RECURRENT C DIFF /ABDOMINAL PAIN Discharge Goals Goal(s): Decrease discomfort, Diagnostic testing, Therapeutic intervention Activity Recommendations Activity Limitations: resume your previous activity Shower/Bathe: no limitations Driving or Machine Use: no limitations . Instructions / Follow-Up Instructions / Follow-Up HOSPITAL FOLLOWUP ON 10/21/2016 @ 11:[address] Cyril Kaiser MD General Internal Medicine [facility] ( YOUR APPOINTMENT ON 10/17/16 IS CANCELLED ) CONTINUE [facility] CATHETER TILL EVALUATION BY UROLOGY AT [facility] MAY ASK FOR REFERRAL AT [facility] IF NO EARLIER APPOINTMENT AVAILABLE IN [place] IF NOTICE DECREASE IN URINE OUT PUT /ABDOMINAL DISCOMFORT M[facility] SHOULD BE CHANGED 6-8 WEEKS OR SOONER IF BLOCKAGE NOTED CONTINUE TO HAVE CONTACT PRECAUTION ; WASH YOUR HAND WITH SOAP AND WATER AFTER EACH TIME USING BATHROOM KEEP ALL YOUR UTENSILS /PERSONAL ITEMS SEPARATE YOU CAN CLEAN TOILET RIM /SINK /FAUCET -DOOR KNOBS -SITES OF CONTACT WITH CHLORAX WIPE -EFFECTIVE IN KILLING SPORES OF C DIFF Current Hospital Diet Patient's current hospital diet: Low Fiber Diet Discharge Diet Recommended Diet: Low Fiber Diet Pending Studies Studies pending at discharge: no Medical Emergencies . Who to Call and When: Medical Emergencies: If at any time you feel your situation is an emergency, please call 911 immediately. . Non-Emergent Contact Non-Emergency issues call your: Primary Care Provider . . "Provider Documentation" section prepared by Nahed Juan. . VTE Core Measure Inpt VTE Proph given/why not?: Tip Elmore, [facility]
[2016-10-13] MEDS: COLESTIPOL HCL 1 GM TAB PO SCH (19:56)
[2016-10-13] MEDS: SIMVASTATIN 20 MG TAB PO SCH (21:33)
[2016-10-14 00:15] VITALS: BP 142/82; PULSE 58; TEMP 36.5; O2SAT 94
[2016-10-14] MEDS: ONDANSETRON INJ 2 MG/ML 2 ML VIAL IV. SCH ×3 (05:38→11:57)
[2016-10-14 07:19] VITALS: BP 135/76; PULSE 63; TEMP 36.9; O2SAT 96
[2016-10-14 07:37] LABS: MEAN CELL VOLUME 90.7 fL (80-100); MEAN CORPUSCULAR HEMOGLOBIN 29.4 pg (25-34); MEAN CORPUSCULAR HGB CONC 32.4 g/dl (32-36); PLATELET COUNT 383 K/uL (130-400); RED BLOOD COUNT 4.08 M/uL (4.2-5.4); WHITE BLOOD COUNT 14.82 K/uL (4.8-10.8)
[2016-10-14 08:09] LABS: BUN/CREATININE RATIO 10.6 (10-20); CALCIUM 8.7 mg/dl (8.5-10.1); CREATININE 0.95 mg/dl (0.60-1.20); MAGNESIUM 1.7 mg/dl (1.8-2.4); POTASSIUM 4.2 mmol/L (3.5-5.1)
--- NOTE | 2016-10-14 08:29 | Gastroenterology Progress Note ---
Progress Note Date of Service: Oct 14, 2016 Subjective Pt evaluation today including: conversation w/ patient, physical exam, chart review, lab review Pt was seen and evaluated this AM. No acute events over night. Continues on a low fiber diet. Started colestid yesterday. Is unsure if there has been much improvement of her symptoms. Had 4 small loose stools this AM. No blood. She thinks her abdominal pain is improving. Denies fever, chills, chest pain, SOB. Review of Systems Constitutional: No fever, No chills Respiratory: No cough, No shortness of breath Cardiac: No chest pain Abdomen: + pain, + diarrhea, No nausea, No vomiting, No constipation, No GI bleeding Medications Current Inpatient Medications Medications (Trade) Dose Ordered Sig/Sujit Route Start Time Stop Time Status Last Admin Dose Admin Nicotine (Nicoderm Cq 21MG Patch) 1 patch QAM TD 10/10/16 08:00 11/09/16 08:59 10/13/16 08:35 1 PATCH Miscellaneous (Remove Nicoderm Patch) 1 ea HS N/A 10/10/16 21:00 11/09/16 20:59 Ondansetron HCl (Zofran Inj) 4 mg Q6H IV. 10/10/16 00:00 11/09/16 00:00 10/14/16 05:38 4 MG Aspirin (Ecotrin Tab) 81 mg QAM PO 10/10/16 08:00 11/09/16 07:59 10/13/16 08:32 81 MG Clopidogrel Bisulfate (plAVix TAB) 75 mg QAM PO 10/10/16 08:00 11/09/16 07:59 10/13/16 08:32 75 MG Levetiracetam (Keppra Tab) 500 mg BID PO 10/10/16 08:00 11/09/16 07:59 10/13/16 21:31 500 MG Paroxetine HCl (pAXil TAB) 20 mg QAM PO 10/10/16 08:00 11/09/16 07:59 10/13/16 08:32 20 MG Simvastatin (Zocor Tab) 20 mg HS PO 10/10/16 22:00 11/09/16 21:59 10/13/16 21:33 20 MG Buspirone HCl (Buspar Tab) 10 mg BID PO 10/10/16 08:00 11/09/16 07:59 10/13/16 21:30 10 MG Cyanocobalamin (Vitamin B-12 Tab) 1,000 mcg QAM PO 10/10/16 08:00 11/09/16 07:59 10/13/16 08:32 1,000 MCG Pantoprazole Sodium (Protonix Tab) 40 mg QAM PO 10/10/16 08:00 11/09/16 07:59 10/13/16 08:33 40 MG Potassium Chloride (Klor-Con Tab) 20 meq BID PO 10/10/16 08:00 11/09/16 07:59 10/13/16 21:33 20 MEQ Raspberry (Raspberry Syrup 5ml Cup) 5 ml QID PO 10/10/16 04:30 10/24/16 04:29 10/13/16 21:33 5 ML Amoxicillin (Amoxil Cap) 500 mg TID PO 10/11/16 20:00 10/16/16 19:59 10/13/16 21:32 500 MG Fidaxomicin (Dificid Tab) 200 mg BID PO 10/12/16 20:00 10/26/16 19:59 10/13/16 21:30 200 MG Vancomycin HCl (Vancomycin Oral Soln) 250 mg QID PO 10/12/16 12:00 10/26/16 11:59 10/13/16 21:33 250 MG Cyclobenzaprine HCl (Flexeril Tab) 5 mg TID PRN PO 10/12/16 18:30 11/11/16 18:29 10/13/16 17:18 5 MG Furosemide (Lasix Tab) 20 mg QAM PO 10/13/16 08:00 11/12/16 07:59 10/13/16 08:34 20 MG Tramadol HCl (Ultram Tab) 50 mg Q4H PRN PO 10/13/16 09:00 11/12/16 08:59 10/13/16 17:18 50 MG Colestipol HCl (Colestid Tab) 1 gm BID PO 10/13/16 20:00 11/12/16 19:59 10/13/16 19:56 1 GM Objective Vital Signs Date Time Temp Pulse Resp B/P (MAP) Pulse Ox O2 Delivery O2 Flow Rate FiO2 10/14/16 07:19 36.9 63 18 135/76 (95) 96 Room Air 10/14/16 01:00 Room Air 10/14/16 00:15 36.5 58 18 142/82 (102) 94 Room Air 10/13/16 16:00 Room Air 10/13/16 15:25 36.9 64 16 157/81 (106) 98 Room Air Physical Exam General Appearance: no apparent distress Eyes: PERRL ENT: hearing grossly normal Neck: supple Respiratory/Chest: lungs clear, normal breath sounds Cardiovascular: regular rate, rhythm Abdomen: normal bowel sounds, soft, no organomegaly, no pulsatile mass, + tenderness (generalized) Neurologic/Psych: alert, normal mood/affect, oriented x 3 Skin: normal color Laboratory Results Last 24 Hours Test 10/14/16 06:59 White Blood Count 14.82 K/uL Red Blood Count 4.08 M/uL Hemoglobin 12.0 g/dL Hematocrit 37.0 % Mean Corpuscular Volume 90.7 fL Mean Corpuscular Hemoglobin 29.4 pg Mean Corpuscular Hemoglobin Concent 32.4 g/dl RDW Standard Deviation 53.0 fL RDW Coefficient of Variation 15.9 % Platelet Count 383 K/uL Mean Platelet Volume 9.0 fL Sodium Level 144 mmol/L Potassium Level 4.2 mmol/L Chloride Level 115 mmol/L Carbon Dioxide Level 24 mmol/L Anion Gap 5.0 mmol/L Blood Urea Nitrogen 10 mg/dl Creatinine 0.95 mg/dl Est Creatinine Clear Calc Drug Dose 74.6 ml/min Estimated GFR () 73.9 Estimated GFR (Non- 63.7 BUN/Creatinine Ratio 10.6 Random Glucose 85 mg/dl Calcium Level 8.7 mg/dl Magnesium Level 1.7 mg/dl Assessment and Plan Patient is a 61 year old female with chronic diarrhea and recurrent c.diff (August treated with Flagyl, negative c.diff in September during colonoscopy) with CT evidence of a mild ileus complicated by concurrent UTI. Recent colonoscopy pathology was neither inclusive/exclusive of microscopic colitis. She was instructed to hold Meloxicam and asses her symptoms. Today, her stool frequency is improving abdominal pain persists. ? of bile salts diarrhea at baseline Plan - KUBs for evaluation of ileus no evidence of ileus no repeat study needed - Vancomycin QID x 21 days Consider vancomycin taper Appreciate ID input - Limit ABX for UTI Appreciate ID input - Low fiber diet as tolerated - Trial of BID colestipol ATTESTATION: I have performed a history and physical examination of this patient and reviewed the electronic record. Specifically, on physical examination there is mild abdominal tenderness. I have discussed the case with NEENA Anna. The above note reflects my findings, conclusions, and recommendations. Marshall Melendrez MD
[2016-10-14] MEDS: RASPBERRY SYRUP 5 ML UDP PO SCH ×4 (08:45→19:56)
[2016-10-14] MEDS: NICOTINE 21 MG/24 HR TDSY TD SCH (08:45)
[2016-10-14] MEDS: VANCOMYCIN HCL 250 MG/5 ML SOLN PO SCH ×4 (08:45→19:56)
[2016-10-14] MEDS: PANTOprazole SOD 40 MG TAB PO SCH (08:46)
[2016-10-14] MEDS: CYANOCOBALAMIN 500 MCG TAB (VIT B-12) PO SCH (08:46)
[2016-10-14] MEDS: PAROXETINE 20 MG TAB PO SCH (08:46)
[2016-10-14] MEDS: AMOXICILLIN 500 MG CAP PO SCH (08:46)
[2016-10-14] MEDS: CLOPIDOGREL BISULFATE 75 MG TAB PO SCH (08:46)
[2016-10-14] MEDS: LEVETIRACETAM 500 MG TAB PO SCH ×2 (08:46→20:00)
[2016-10-14] MEDS: ASPIRIN 81 MG ECTAB PO SCH (08:47)
[2016-10-14] MEDS: FUROSEMIDE 20 MG TAB PO SCH (08:47)
[2016-10-14] MEDS: POTASSIUM CHLORIDE 20 MEQ TABCR PO SCH ×2 (08:47→19:58)
[2016-10-14] MEDS: FIDAXOMICIN TAB 200 MG TAB PO SCH ×2 (09:12→19:57)
[2016-10-14] MEDS: COLESTIPOL HCL 1 GM TAB PO SCH (09:12)
--- NOTE | 2016-10-14 10:41 | Progress Note ---
Subjective Date of Service: Oct 14, 2016. Subjective Pt evaluation today including: conversation w/ patient, physical exam, chart review, lab review pt feeling tired today. no f/c. less abd pain today, less crampy. still with diarrhea but feels is slightly improved. no f/c. amox stopped today. wbc increased today. dificid added, tolerating well. All remaining ros reviewed and are negative. asking when she can be d/c home Problem List Medical Problems: (1) Acute renal failure Status: Acute (2) Anxiety State Nos Status: Chronic (3) C. difficile diarrhea Status: Acute (4) Confusion Status: Acute (5) Depression Status: Chronic (6) Esophageal Reflux Status: Chronic (7) HTN (hypertension) Status: Chronic (8) Hyperlipidemia Nec/Nos Status: Chronic (9) Hypocalcemia Status: Acute (10) Hypokalemia Status: Acute (11) Hypomagnesemia Status: Acute (12) Hypomagnesemia Status: Acute (13) Nausea & vomiting Status: Acute (14) Paresthesia Status: Acute (15) Seizure Status: Chronic (16) Sepsis Status: Acute (17) Urinary tract infection Status: Acute Surgical Problems: (1) Urinostomy Status Nec Status: Chronic Objective Vital Signs Date Time Temp Pulse Resp B/P (MAP) Pulse Ox O2 Delivery O2 Flow Rate FiO2 10/14/16 07:19 36.9 63 18 135/76 (95) 96 Room Air 10/14/16 01:00 Room Air 10/14/16 00:15 36.5 58 18 142/82 (102) 94 Room Air 10/13/16 16:00 Room Air 10/13/16 15:25 36.9 64 16 157/81 (106) 98 Room Air Physical Exam General Appearance: WD/WN, no apparent distress Eyes: normal inspection, EOMI Neck: supple Respiratory/Chest: lungs clear, normal breath sounds, no respiratory distress Cardiovascular: regular rate, rhythm, no edema Abdomen: non tender, soft Extremities: non-tender, normal inspection, no pedal edema Neurologic/Psychiatric: no motor/sensory deficits, oriented x 3 Skin: normal color Comments: abd wall without evidence of erythema, edema. no evidence of cellulitis Laboratory Results Item Value Date Time Urine Culture - Final Complete 10/09/161954 Urine , Clean Catch Enterococcus Faecalis C.difficile Toxin B Gene (PCR) - Final Complete 10/09/161954 Stool Positive for C. difficile toxin B gene Last 24 Hours Test 10/14/16 06:59 White Blood Count 14.82 K/uL Red Blood Count 4.08 M/uL Hemoglobin 12.0 g/dL Hematocrit 37.0 % Mean Corpuscular Volume 90.7 fL Mean Corpuscular Hemoglobin 29.4 pg Mean Corpuscular Hemoglobin Concent 32.4 g/dl RDW Standard Deviation 53.0 fL RDW Coefficient of Variation 15.9 % Platelet Count 383 K/uL Mean Platelet Volume 9.0 fL Sodium Level 144 mmol/L Potassium Level 4.2 mmol/L Chloride Level 115 mmol/L Carbon Dioxide Level 24 mmol/L Anion Gap 5.0 mmol/L Blood Urea Nitrogen 10 mg/dl Creatinine 0.95 mg/dl Est Creatinine Clear Calc Drug Dose 74.6 ml/min Estimated GFR () 73.9 Estimated GFR (Non- 63.7 BUN/Creatinine Ratio 10.6 Random Glucose 85 mg/dl Calcium Level 8.7 mg/dl Magnesium Level 1.7 mg/dl Assessment and Plan (1) C. difficile colitis Assessment & Plan: dificid started. also on vanco. when medically stable she can be d/c on dificid to complete 10 day course, if co-pay too high, alternative would be 21 day course vanco 250mg QID. (2) Urinary tract infection (3) Leukocytosis
[2016-10-14] MEDS: CYCLOBENZAPRINE HCL 5 MG TAB PO PRN ×2 (12:00→19:57)
[2016-10-14] MEDS ORDERED: ONDANSETRON 4MG OD TAB PO PRN (12:15)
[2016-10-14] MEDS ORDERED: LORAZEPAM 0.5 MG TAB PO PRN (12:15)
[2016-10-14] MEDS: TRAMADOL HCL 50 MG TAB PO PRN (13:02)
[2016-10-14] MEDS ORDERED: TRAMADOL HCL 50 MG TAB PO PRN (14:00)
--- NOTE | 2016-10-14 14:09 | DIAGNOSTIC IMAGING REPORT ---
KUB HISTORY: c.diff, worsening abdominal pain COMPARISON: KUB 10/14/2015. FINDINGS: The bowel gas pattern is unremarkable. There are no dilated loops of small bowel to suggest an obstruction. No renal calculi. No ureteral calculi. No pneumoperitoneum or pneumatosis. Scattered surgical clips within the pelvis. The descending colon is filled with gas and normal in caliber. This remains unchanged. IMPRESSION: Unremarkable bowel gas pattern. No evidence for bowel obstruction. Electronically signed by: Aneesh Sow M.D. 10/14/2016 2:07 PM Dictated Date/Time: 10/14/2016 2:06 PM
[2016-10-14 14:44] VITALS: BP 147/85; PULSE 67; TEMP 36.8; O2SAT 96
[2016-10-14] MEDS: SIMVASTATIN 20 MG TAB PO SCH (19:59)
--- NOTE | 2016-10-14 20:51 | Progress Note ---
Internal Med Progress Note Date of Service: Oct 14, 2016. Provider Documentation: SUBJECTIVE: continues to complain of abdominal pain /cramps very anxious today unable to sleep last night OBJECTIVE: Vital Signs-as noted below Exam: General-no sign of distress Eyes-sclera non icteric Lungs-CTA Heart-regular S1/S2 Abdomen-soft, healed surgical scan in mid abdomen, + tenderness in lower abdomen , erythema near mid abdomen hernia repair site , no open wound Ana pouch opening on lower left abdomen /lateral to umbilicus, opening appears to be very narrow , with surrounding erythema , tenderness active bowel sound Extremities-no rash or deformity Neuro-AAO x3, no focal neurological deficit Lab data as noted below. ASSESSMENT & PLAN: This is a 61 year old female with a PMH of bladder CA s/p cystectomy and now intermittent self catheterizations and recurrent UTIs, COPD, HTN, CKD stage 3 - recent admission with UTI and C. Diff - presents with diarrhea C. Diff Colitis recent discharged with a 10 day supply of Flagyl for C. Diff ( stool c diff positive on 10/05/16 ) pt mentions of taking Meds religiously has not missed any dose diarrhea persisted had colonoscopy on Monday, October 03 -by Dr Claire Milton -showed normal exam of descending colon , transverse colon , ascending colon -diffuse mild inflammation characterized by congestion ( edema ) , erythema and granularity was found in recto-sigmoid Biopsy taken : Pathology : Colon : mild acute/chronic inflammation of the lamina propria increased intraepithelial lymphocytes are not seen pt started on PO vancomycin for ongoing Diarrhea /C diff Stool specimen positive for C diff this admission as well presented with abdominal pain /worsening of diarrhea /stool incontinence associated with Leukocytosis appreciate input form ID started to Dificid trial to see improvement of C diff infection CT abdomen /pelvis : 10/11/16 - Mild ileus with no evidence for true obstructive change. -Moderate cellulitis of the anterior abdominal wall superior to the umbilicus. No evidence for drainable abscess or collection. appreciate input form GI pt will need to continue tx for C diff PO vancomycin for 21 days then possible taper started on Colestid -for possible bile acid causing chronic diarrhea ABDOMINAL WALL CELLULITIS ; evident in CT abdomen /pelvis pt mentions of having lower abdominal pain past few weeks has ana pouch opening lateral to umbilicus opening has been very stenotic pt mentions of having increased difficulty doing straight cath through that opening noticed blood in few occasions was scheduled to be at [facility] tomorrow for dilatation of the stoma possible source of cellulitis could be abdominal wall trauma due to narrow stoma and catheter manipulation General surgery team consulted -appreciate input no surgical intervention indicated does not belief hernia mesh infection cont to monitor recommend out pt surgery follow up will need to reschedule urology appointment at [place] for stenosis in the opening of Ana pouch stoma Acute Kidney Injury superimposed on CKD stage 3 secondary to diarrhea improved with IV fluids IVF D/danielle follow PRP Hypokalemia, Hypomagnesemia secondary to diarrhea/GI loss resolved UTI Hx of bladder CA s/p Cystectomy/ Recurrent UTIs due to self-catheterizations patient presents with recurrent UTIs; recent treatment 3 weeks prior urine culture enterococcus appreciate input form ID completed PO Amoxicillin for 3 days WT GAIN OF APPROX 10 LB : possible due to vol overload pt also developed increased ankle edema since this admission pt received approx 3 L IV fluids since admission for diarrhea /GI loss/ATN renal function improved to baseline trial of Lasix ordered follow daily wt /input /out put HTN continue home meds COPD/Tobacco Use Disorder Nicotine patch no exacerbation Hx. of Seizure Disorder continue Keppra DVT ppx will D/C sub q heparin active colitis reports of blood in stool few days back ambulate SCD and teds ordered FULL CODE DISPOSITION expected to be discharged home when medically stable Medicine follow up with Dr Kaiser Vital Signs: Date Time Temp Pulse Resp B/P (MAP) Pulse Ox O2 Delivery O2 Flow Rate FiO2 10/14/16 16:00 Room Air 10/14/16 14:44 36.8 67 20 147/85 (105) 96 10/14/16 09:00 Room Air 10/14/16 07:19 36.9 63 18 135/76 (95) 96 Room Air 10/14/16 01:00 Room Air 10/14/16 00:15 36.5 58 18 142/82 (102) 94 Room Air Lab Results: Results Past 24 Hours Test 10/14/16 06:59 Range/Units White Blood Count 14.82 4.8-10.8 K/uL Red Blood Count 4.08 4.2-5.4 M/uL Hemoglobin 12.0 12.0-16.0 g/dL Hematocrit 37.0 37-47 % Mean Corpuscular Volume 90.7 80-100 fL Mean Corpuscular Hemoglobin 29.4 25-34 pg Mean Corpuscular Hemoglobin Concent 32.4 32-36 g/dl RDW Standard Deviation 53.0 36.4-46.3 fL RDW Coefficient of Variation 15.9 11.5-14.5 % Platelet Count 383 130-400 K/uL Mean Platelet Volume 9.0 7.4-10.4 fL Sodium Level 144 136-145 mmol/L Potassium Level 4.2 3.5-5.1 mmol/L Chloride Level 115 98-107 mmol/L Carbon Dioxide Level 24 21-32 mmol/L Anion Gap 5.0 3-11 mmol/L Blood Urea Nitrogen 10 7-18 mg/dl Creatinine 0.95 0.60-1.20 mg/dl Est Creatinine Clear Calc Drug Dose 74.6 ml/min Estimated GFR () 73.9 Estimated GFR (Non- 63.7 BUN/Creatinine Ratio 10.6 10-20 Random Glucose 85 70-99 mg/dl Calcium Level 8.7 8.5-10.1 mg/dl Magnesium Level 1.7 1.8-2.4 mg/dl
--- NOTE | 2016-10-14 20:54 | Progress Note ---
Progress Note Date of Service Oct 14, 2016. Progress Note . Pt continues to complain severe abdominal pain earlier with difficulty placing straight cath. per Nursing 1100 ml emptied via straight cath with abdominal pain relieved. ordered for Gonzalez D/c Lasix ordered for Bladder scan q shift please notify MD if residual urine > 300 ml urology consult requested
[2016-10-14 23:40] VITALS: BP 137/78; PULSE 63; TEMP 36.7; O2SAT 94
[2016-10-15 07:32] VITALS: BP 124/75; PULSE 64; TEMP 36.8; O2SAT 94
[2016-10-15 07:34] LABS: HEMATOCRIT 35.5 % (37-47); MEAN CELL VOLUME 88.5 fL (80-100); MEAN CORPUSCULAR HEMOGLOBIN 28.2 pg (25-34); MEAN CORPUSCULAR HGB CONC 31.8 g/dl (32-36); MEAN PLATELET VOLUME 8.8 fL (7.4-10.4); PLATELET COUNT 372 K/uL (130-400); RED BLOOD COUNT 4.01 M/uL (4.2-5.4); WHITE BLOOD COUNT 14.55 K/uL (4.8-10.8)
[2016-10-15 08:16] LABS: BUN/CREATININE RATIO 8.4 (10-20); CALCIUM 8.5 mg/dl (8.5-10.1); CREATININE 0.96 mg/dl (0.60-1.20); MAGNESIUM 1.4 mg/dl (1.8-2.4); POTASSIUM 3.5 mmol/L (3.5-5.1)
[2016-10-15] MEDS: CYCLOBENZAPRINE HCL 5 MG TAB PO PRN (08:42)
[2016-10-15] MEDS: LEVETIRACETAM 500 MG TAB PO SCH ×2 (08:42→20:51)
[2016-10-15] MEDS: CYANOCOBALAMIN 500 MCG TAB (VIT B-12) PO SCH (08:43)
[2016-10-15] MEDS: NICOTINE 21 MG/24 HR TDSY TD SCH (08:44)
[2016-10-15] MEDS: PANTOprazole SOD 40 MG TAB PO SCH (08:44)
[2016-10-15] MEDS: PAROXETINE 20 MG TAB PO SCH (08:45)
[2016-10-15] MEDS: CLOPIDOGREL BISULFATE 75 MG TAB PO SCH (08:45)
[2016-10-15] MEDS: POTASSIUM CHLORIDE 20 MEQ TABCR PO SCH ×2 (08:46→20:51)
[2016-10-15] MEDS: ASPIRIN 81 MG ECTAB PO SCH (08:46)
[2016-10-15] MEDS: RASPBERRY SYRUP 5 ML UDP PO SCH ×4 (08:50→20:48)
[2016-10-15] MEDS: VANCOMYCIN HCL 250 MG/5 ML SOLN PO SCH ×4 (08:50→20:48)
[2016-10-15] MEDS: TRAMADOL HCL 50 MG TAB PO PRN (08:51)
--- NOTE | 2016-10-15 10:25 | Urology Consultation ---
History General Date of Service: Oct 15, 2016. Primary Care Physician: Cyril Kaiser MD History of Present Illness patient has stomal stenosis her stenosis was dilated back in August by my weekend covering doctor Dr Nino. She is clearly not staying open and so need to address the stomal stenosis with her surgical team at [facility]. Floor team was skillfully able to get a alvarado into her [place] pouch and drained over a liter. I suggest the alvarado stay in until she is seen at [place]. Tanesha Elizabeth MD Laboratory Labs were reviewed and are within normal limits unless listed below. Labs are available in the chart and at [facility] Problem List Medical Problems: (1) Acute renal failure Status: Acute (2) Anxiety State Nos Status: Chronic (3) C. difficile diarrhea Status: Acute (4) Confusion Status: Acute (5) Depression Status: Chronic (6) Esophageal Reflux Status: Chronic (7) HTN (hypertension) Status: Chronic (8) Hyperlipidemia Nec/Nos Status: Chronic (9) Hypocalcemia Status: Acute (10) Hypokalemia Status: Acute (11) Hypomagnesemia Status: Acute (12) Hypomagnesemia Status: Acute (13) Nausea & vomiting Status: Acute (14) Paresthesia Status: Acute (15) Seizure Status: Chronic (16) Sepsis Status: Acute (17) Urinary tract infection Status: Acute Surgical Problems: (1) Urinostomy Status Nec Status: Chronic Past History cancer Past Surgical History: other Family History FHx: cancer FHx: lung disease Hypertension Social History Hx Tobacco Use In Past Year?: Yes (cigarettes 1.5 packs/day) Marital status: Housing status: lives with family Occupation status: retired Immunizations History of Influenza Vaccine: Yes History of Tetanus Vaccine?: UTD History of Pneumococcal: No History of Hepatitis B Vaccine: No Allergies Coded Allergies: No Known Drug Allergy (Verified Allergy, Unknown, NONE, 09/29/16) Medications Home Medications: Home Meds and Scripts Medications Dose Route/Sig Max Daily Dose Days Date Category Colestid (Colestipol HCl) 1 Gm Tab 1 Gm PO BID 30 10/13/16 Rx Cyclobenzaprine HCl 5 Mg Tab 5 Mg PO TID PRN 30 10/13/16 Rx Keppra (Levetiracetam) 500 Mg Tab 1 Tab PO BID 30 10/10/16 Reported Cholestyramine 4 Gm Pow 1 Pkt PO DAILY 10/09/16 Reported K-Tab (Potassium Chloride) 20 Meq Tab 1 Tab PO BID 09/29/16 Reported Plavix (Clopidogrel Bisulfate) 75 Mg Tab 75 Mg PO QAM 09/29/16 Reported Zocor (Simvastatin) 20 Mg Tab 20 Mg PO HS 09/29/16 Reported Vitamin B12 (Cyanocobalamin) 1,000 Mcg Tab 1 Tab PO QAM 09/29/16 Reported Paxil (Paroxetine HCl) 20 Mg Tab 20 Mg PO QAM 11/23/15 Reported Buspirone Hcl 10 Mg Tab 10 Mg PO BID 11/23/15 Reported Aspirin Ec (Aspirin) 81 Mg Tab 81 Mg PO QAM 04/08/14 Reported Prilosec (Omeprazole) 20 Mg Cap 20 Mg PO QAM 02/12/14 Reported Inpatient Medications: Current Inpatient Medications Medications (Trade) Dose Ordered Sig/Sujit Route Start Time Stop Time Status Last Admin Dose Admin Nicotine (Nicoderm Cq 21MG Patch) 1 patch QAM TD 10/10/16 08:00 11/09/16 08:59 10/15/16 08:44 1 PATCH Miscellaneous (Remove Nicoderm Patch) 1 ea HS N/A 10/10/16 21:00 11/09/16 20:59 Aspirin (Ecotrin Tab) 81 mg QAM PO 10/10/16 08:00 11/09/16 07:59 10/15/16 08:46 81 MG Clopidogrel Bisulfate (plAVix TAB) 75 mg QAM PO 10/10/16 08:00 11/09/16 07:59 10/15/16 08:45 75 MG Levetiracetam (Keppra Tab) 500 mg BID PO 10/10/16 08:00 11/09/16 07:59 10/15/16 08:42 500 MG Paroxetine HCl (pAXil TAB) 20 mg QAM PO 10/10/16 08:00 11/09/16 07:59 10/15/16 08:45 20 MG Simvastatin (Zocor Tab) 20 mg HS PO 10/10/16 22:00 11/09/16 21:59 10/14/16 19:59 20 MG Buspirone HCl (Buspar Tab) 10 mg BID PO 10/10/16 08:00 11/09/16 07:59 10/15/16 08:45 10 MG Cyanocobalamin (Vitamin B-12 Tab) 1,000 mcg QAM PO 10/10/16 08:00 11/09/16 07:59 10/15/16 08:43 1,000 MCG Pantoprazole Sodium (Protonix Tab) 40 mg QAM PO 10/10/16 08:00 11/09/16 07:59 10/15/16 08:44 40 MG Potassium Chloride (Klor-Con Tab) 20 meq BID PO 10/10/16 08:00 11/09/16 07:59 10/15/16 08:46 20 MEQ Raspberry (Raspberry Syrup 5ml Cup) 5 ml QID PO 10/10/16 04:30 10/24/16 04:29 10/15/16 08:50 5 ML Fidaxomicin (Dificid Tab) 200 mg BID PO 10/12/16 20:00 10/26/16 19:59 10/14/16 19:57 200 MG Vancomycin HCl (Vancomycin Oral Soln) 250 mg QID PO 10/12/16 12:00 10/26/16 11:59 10/15/16 08:50 250 MG Cyclobenzaprine HCl (Flexeril Tab) 5 mg TID PRN PO 10/12/16 18:30 11/11/16 18:29 10/15/16 08:42 5 MG Ondansetron HCl (Zofran Odt) 4 mg Q6H PRN PO 10/14/16 12:15 11/13/16 12:14 Lorazepam (Ativan Tab) 0.5 mg Q8 PRN PO 10/14/16 12:15 11/13/16 12:14 10/14/16 16:03 0.5 MG Tramadol HCl (Ultram Tab) 50 mg Q8 PRN PO 10/14/16 13:00 11/13/16 12:59 10/15/16 08:51 50 MG Physical Exam Vital Signs: Vital Signs Past 12 Hours Date Time Temp Pulse Resp B/P (MAP) Pulse Ox O2 Delivery O2 Flow Rate FiO2 10/15/16 07:32 36.8 64 16 124/75 (91) 94 Room Air 10/15/16 00:00 Room Air 10/14/16 23:40 36.7 63 20 137/78 (97) 94 Room Air
[2016-10-15] MEDS: FIDAXOMICIN TAB 200 MG TAB PO SCH ×2 (11:28→20:49)
[2016-10-15] MEDS ORDERED: NURSING VERBAL MED ORDER ONE (12:45)
[2016-10-15] MEDS: LACTOBACILLUS ACIDOPHILUS (FLORANEX) TAB PO SCH ×2 (14:32→16:42)
[2016-10-15 15:26] VITALS: BP 130/71; PULSE 65; TEMP 36.9; O2SAT 94
[2016-10-15] MEDS ORDERED: NURSING VERBAL MED ORDER PRN (19:00)
--- NOTE | 2016-10-15 19:07 | Progress Note ---
Internal Med Progress Note Date of Service: Oct 15, 2016. Provider Documentation: SUBJECTIVE: feels much better Gonzalez inserted in [place] Pouch continues to drain urine abdominal cramps /discomfort improved after urinary retention resolved OBJECTIVE: Vital Signs-as noted below Exam: General-no sign of distress Eyes-sclera non icteric Lungs-CTA Heart-regular S1/S2 Abdomen-soft, healed surgical scan in mid abdomen Ana pouch opening on lower left abdomen -has Gonzalez placed active bowel sound Extremities-no rash or deformity Neuro-AAO x3, no focal neurological deficit Lab data as noted below. ASSESSMENT & PLAN: This is a 61 year old female with a PMH of bladder CA s/p cystectomy and now intermittent self catheterizations and recurrent UTIs, COPD, HTN, CKD stage 3 - recent admission with UTI and C. Diff - presents with diarrhea C. Diff Colitis recent discharged with a 10 day supply of Flagyl for C. Diff ( stool c diff positive on 10/05/16 ) pt mentions of taking Meds religiously has not missed any dose diarrhea persisted had colonoscopy on Monday, October 03 -by Dr Claire Milton -showed normal exam of descending colon , transverse colon , ascending colon -diffuse mild inflammation characterized by congestion ( edema ) , erythema and granularity was found in recto-sigmoid Biopsy taken : Pathology : Colon : mild acute/chronic inflammation of the lamina propria increased intraepithelial lymphocytes are not seen pt started on PO vancomycin for ongoing Diarrhea /C diff Stool specimen positive for C diff this admission as well presented with abdominal pain /worsening of diarrhea /stool incontinence associated with Leukocytosis appreciate input form ID started to Dificid trial to see improvement of C diff infection CT abdomen /pelvis : 10/11/16 - Mild ileus with no evidence for true obstructive change. -Moderate cellulitis of the anterior abdominal wall superior to the umbilicus. No evidence for drainable abscess or collection. appreciate input form GI pt will need to continue tx for C diff PO vancomycin for 21 days then possible taper started on Colestid -for possible bile acid causing chronic diarrhea URINARY RETENTION ; hx of bladder Ca s/p bladder resection -ana pouch created using proximal bowel loop in [place] opening of pouch has been increasingly stenoses pt was unable to effectively do straight cath possible causing abdominal pain /cramps Gonzalez yesterday by Nursing with darning of approx ~1 l of urine cont Gonzalez drainage Urology eval requested appreciate input pt needs to follow up at [facility] for further management -no appointment available till November pt will continue on chronic Gonzalez till then ABDOMINAL WALL CELLULITIS ; evident in CT abdomen /pelvis pt mentions of having lower abdominal pain past few weeks has ana pouch opening lateral to umbilicus opening has been very stenotic pt mentions of having increased difficulty doing straight cath through that opening noticed blood in few occasions was scheduled to be at [facility] tomorrow for dilatation of the stoma possible source of cellulitis could be abdominal wall trauma due to narrow stoma and catheter manipulation General surgery team consulted -appreciate input no surgical intervention indicated does not belief hernia mesh infection cont to monitor recommend out pt surgery follow up will need to reschedule urology appointment at [place] for stenosis in the opening of Allen pouch stoma Acute Kidney Injury superimposed on CKD stage 3 secondary to diarrhea improved with IV fluids IVF D/danielle follow PRP Hypokalemia, Hypomagnesemia secondary to diarrhea/GI loss resolved UTI Hx of bladder CA s/p Cystectomy/ Recurrent UTIs due to self-catheterizations patient presents with recurrent UTIs; recent treatment 3 weeks prior urine culture enterococcus appreciate input form ID completed PO Amoxicillin for 3 days WT GAIN OF APPROX 10 LB : possible due to vol overload pt also developed increased ankle edema since this admission pt received approx 3 L IV fluids since admission for diarrhea /GI loss/ATN renal function improved to baseline trial of Lasix ordered follow daily wt /input /out put HTN continue home meds COPD/Tobacco Use Disorder Nicotine patch no exacerbation Hx. of Seizure Disorder continue Keppra DVT ppx will D/C sub q heparin active colitis reports of blood in stool few days back ambulate SCD and teds ordered FULL CODE DISPOSITION expected to be discharged home when medically stable Medicine follow up with Dr Kaiser Vital Signs: Date Time Temp Pulse Resp B/P (MAP) Pulse Ox O2 Delivery O2 Flow Rate FiO2 10/15/16 16:00 Room Air 10/15/16 15:26 36.9 65 18 130/71 (90) 94 Room Air 10/15/16 08:00 Room Air 10/15/16 07:32 36.8 64 16 124/75 (91) 94 Room Air 10/15/16 00:00 Room Air 10/14/16 23:40 36.7 63 20 137/78 (97) 94 Room Air Lab Results: Results Past 24 Hours Test 10/15/16 07:03 Range/Units White Blood Count 14.55 4.8-10.8 K/uL Red Blood Count 4.01 4.2-5.4 M/uL Hemoglobin 11.3 12.0-16.0 g/dL Hematocrit 35.5 37-47 % Mean Corpuscular Volume 88.5 80-100 fL Mean Corpuscular Hemoglobin 28.2 25-34 pg Mean Corpuscular Hemoglobin Concent 31.8 32-36 g/dl RDW Standard Deviation 51.6 36.4-46.3 fL RDW Coefficient of Variation 15.9 11.5-14.5 % Platelet Count 372 130-400 K/uL Mean Platelet Volume 8.8 7.4-10.4 fL Sodium Level 146 136-145 mmol/L Potassium Level 3.5 3.5-5.1 mmol/L Chloride Level 114 98-107 mmol/L Carbon Dioxide Level 25 21-32 mmol/L Anion Gap 7.0 3-11 mmol/L Blood Urea Nitrogen 8 7-18 mg/dl Creatinine 0.96 0.60-1.20 mg/dl Est Creatinine Clear Calc Drug Dose 73.8 ml/min Estimated GFR () 72.9 Estimated GFR (Non- 62.9 BUN/Creatinine Ratio 8.4 10-20 Random Glucose 82 70-99 mg/dl Calcium Level 8.5 8.5-10.1 mg/dl Magnesium Level 1.4 1.8-2.4 mg/dl
[2016-10-15] MEDS: SIMVASTATIN 20 MG TAB PO SCH (20:51)
[2016-10-15] MEDS: MAGNESIUM SULFATE 1GM / D5W 1 GM in PREMIXED IN D5W 100 ML IV SCH ×2 (21:11→21:15)
[2016-10-16 00:02] VITALS: BP 141/79; PULSE 63; TEMP 36.8; O2SAT 95
[2016-10-16 06:50] LABS: MEAN CELL VOLUME 89.6 fL (80-100); MEAN CORPUSCULAR HEMOGLOBIN 28.1 pg (25-34); MEAN CORPUSCULAR HGB CONC 31.4 g/dl (32-36); MEAN PLATELET VOLUME 8.8 fL (7.4-10.4); PLATELET COUNT 380 K/uL (130-400); RED BLOOD COUNT 4.13 M/uL (4.2-5.4)
[2016-10-16 07:25] LABS: BUN/CREATININE RATIO 8.8 (10-20); CALCIUM 8.5 mg/dl (8.5-10.1); CREATININE 0.93 mg/dl (0.60-1.20); MAGNESIUM 1.8 mg/dl (1.8-2.4); POTASSIUM 3.5 mmol/L (3.5-5.1)
[2016-10-16 07:59] VITALS: BP 129/80; PULSE 63; TEMP 36.8; O2SAT 99
[2016-10-16 08:00] VITALS: O2SAT 99
[2016-10-16] MEDS: PAROXETINE 20 MG TAB PO SCH (08:50)
[2016-10-16] MEDS: CYANOCOBALAMIN 500 MCG TAB (VIT B-12) PO SCH (08:50)
[2016-10-16] MEDS: LEVETIRACETAM 500 MG TAB PO SCH ×2 (08:50→20:06)
[2016-10-16] MEDS: CLOPIDOGREL BISULFATE 75 MG TAB PO SCH (08:50)
[2016-10-16] MEDS: VANCOMYCIN HCL 250 MG/5 ML SOLN PO SCH ×4 (08:50→20:03)
[2016-10-16] MEDS: ASPIRIN 81 MG ECTAB PO SCH (08:50)
[2016-10-16] MEDS: RASPBERRY SYRUP 5 ML UDP PO SCH ×4 (08:50→20:03)
[2016-10-16] MEDS: PANTOprazole SOD 40 MG TAB PO SCH (08:51)
[2016-10-16] MEDS: LACTOBACILLUS ACIDOPHILUS (FLORANEX) TAB PO SCH ×3 (08:51→16:49)
[2016-10-16] MEDS: POTASSIUM CHLORIDE 20 MEQ TABCR PO SCH ×2 (08:51→20:57)
[2016-10-16] MEDS: NICOTINE 21 MG/24 HR TDSY TD SCH (08:52)
[2016-10-16] MEDS: MICONAZOLE NITRATE-7 (100 MG EA SUPP) BOX PV SCH (09:47)
[2016-10-16] MEDS: FIDAXOMICIN TAB 200 MG TAB PO SCH ×2 (09:47→20:04)
[2016-10-16 16:00] VITALS: BP 114/61; PULSE 59; TEMP 36.9; O2SAT 96
--- NOTE | 2016-10-16 19:00 | Progress Note ---
Internal Med Progress Note Date of Service: Oct 16, 2016. Provider Documentation: SUBJECTIVE: abdominal pain has much improved has Gonzalez drainage diarrhea 3-4 episodes today OBJECTIVE: Vital Signs-as noted below Exam: General-no sign of distress Eyes-sclera non icteric Lungs-CTA Heart-regular S1/S2 Abdomen-soft, healed surgical scan in mid abdomen [place] pouch opening on lower left abdomen -has Gonzalez placed active bowel sound Extremities-no rash or deformity Neuro-AAO x3, no focal neurological deficit Lab data as noted below. ASSESSMENT & PLAN: This is a 61 year old female with a PMH of bladder CA s/p cystectomy and now intermittent self catheterizations and recurrent UTIs, COPD, HTN, CKD stage 3 - recent admission with UTI and C. Diff - presents with diarrhea C. Diff Colitis recent discharged with a 10 day supply of Flagyl for C. Diff ( stool c diff positive on 10/05/16 ) pt mentions of taking Meds religiously has not missed any dose diarrhea persisted had colonoscopy on Monday, October 03 -by Dr Claire Milton -showed normal exam of descending colon , transverse colon , ascending colon -diffuse mild inflammation characterized by congestion ( edema ) , erythema and granularity was found in recto-sigmoid Biopsy taken : Pathology : Colon : mild acute/chronic inflammation of the lamina propria increased intraepithelial lymphocytes are not seen pt started on PO vancomycin for ongoing Diarrhea /C diff Stool specimen positive for C diff this admission as well presented with abdominal pain /worsening of diarrhea /stool incontinence associated with Leukocytosis appreciate input form ID started to Dificid trial to see improvement of C diff infection CT abdomen /pelvis : 10/11/16 - Mild ileus with no evidence for true obstructive change. -Moderate cellulitis of the anterior abdominal wall superior to the umbilicus. No evidence for drainable abscess or collection. appreciate input form GI pt will need to continue tx for C diff PO vancomycin for 21 days then possible taper -will D/w ID/GI regarding dose / schedule of taper dose started on Colestid -for possible bile acid causing chronic diarrhea URINARY RETENTION ; resolved after Gonzalez Catheter placement hx of bladder Ca s/p bladder resection -ana pouch created using proximal bowel loop in [place] opening of pouch has been increasingly stenoses pt was unable to effectively do straight cath possible causing abdominal pain /cramps cont Gonzalez drainage Urology eval requested appreciate input pt needs to follow up at [facility] for further management -no appointment available till November pt will continue on chronic Gonzalez till then will need Home health Visiting nurse for Gonzalez maintenance Gonzalez needs to be flushes as need for low urine out put /blockage Needs to be changed every 6-8 weeks or sooner if needed position of the opening is difficult for pt to see for Gonzalez Insertion Home health vising nurse can assist in Gonzalez change ABDOMINAL WALL CELLULITIS ; symptom resolved -no pain or discomfort after urinary retention resolved evident in CT abdomen /pelvis pt mentions of having lower abdominal pain past few weeks has ana pouch opening lateral to umbilicus opening has been very stenotic pt mentions of having increased difficulty doing straight cath through that opening noticed blood in few occasions was scheduled to be at [facility] tomorrow for dilatation of the stoma possible source of cellulitis could be abdominal wall trauma due to narrow stoma and catheter manipulation General surgery team consulted -appreciate input no surgical intervention indicated does not belief hernia mesh infection cont to monitor recommend out pt surgery follow up will need to reschedule urology appointment at [place] for stenosis in the opening of Ana pouch stoma Acute Kidney Injury superimposed on CKD stage 3 resolved secondary to diarrhea improved with IV fluids IVF D/danielle follow PRP Hypokalemia, Hypomagnesemia secondary to diarrhea/GI loss resolved UTI Hx of bladder CA s/p Cystectomy/ Recurrent UTIs due to self-catheterizations patient presents with recurrent UTIs; recent treatment 3 weeks prior urine culture enterococcus appreciate input form ID completed PO Amoxicillin for 3 days WT GAIN OF APPROX 10 LB : possible due to vol overload pt also developed increased ankle edema since this admission pt received approx 3 L IV fluids since admission for diarrhea /GI loss/ATN renal function improved to baseline trial of Lasix ordered follow daily wt /input /out put HTN continue home meds COPD/Tobacco Use Disorder Nicotine patch no exacerbation Hx. of Seizure Disorder continue Keppra DVT ppx will D/C sub q heparin active colitis reports of blood in stool few days back ambulate SCD and teds ordered FULL CODE DISPOSITION possible discharged home tomorrow Medicine follow up with Dr Kaiser Vital Signs: Date Time Temp Pulse Resp B/P (MAP) Pulse Ox O2 Delivery O2 Flow Rate FiO2 10/16/16 16:00 Room Air 10/16/16 16:00 36.9 59 20 114/61 (78) 96 Room Air 10/16/16 08:00 99 Room Air 10/16/16 07:59 36.8 63 16 129/80 (96) 99 Room Air 10/16/16 00:02 36.8 63 20 141/79 (99) 95 Room Air 10/16/16 00:00 Room Air Lab Results: Results Past 24 Hours Test 10/16/16 06:20 Range/Units White Blood Count 13.90 4.8-10.8 K/uL Red Blood Count 4.13 4.2-5.4 M/uL Hemoglobin 11.6 12.0-16.0 g/dL Hematocrit 37.0 37-47 % Mean Corpuscular Volume 89.6 80-100 fL Mean Corpuscular Hemoglobin 28.1 25-34 pg Mean Corpuscular Hemoglobin Concent 31.4 32-36 g/dl RDW Standard Deviation 52.4 36.4-46.3 fL RDW Coefficient of Variation 15.9 11.5-14.5 % Platelet Count 380 130-400 K/uL Mean Platelet Volume 8.8 7.4-10.4 fL Sodium Level 145 136-145 mmol/L Potassium Level 3.5 3.5-5.1 mmol/L Chloride Level 114 98-107 mmol/L Carbon Dioxide Level 25 21-32 mmol/L Anion Gap 6.0 3-11 mmol/L Blood Urea Nitrogen 8 7-18 mg/dl Creatinine 0.93 0.60-1.20 mg/dl Est Creatinine Clear Calc Drug Dose 76.2 ml/min Estimated GFR () 75.8 Estimated GFR (Non- 65.4 BUN/Creatinine Ratio 8.8 10-20 Random Glucose 92 70-99 mg/dl Calcium Level 8.5 8.5-10.1 mg/dl Magnesium Level 1.8 1.8-2.4 mg/dl
[2016-10-16] MEDS: SIMVASTATIN 20 MG TAB PO SCH (20:06)
[2016-10-17 00:09] VITALS: BP 136/74; PULSE 60; TEMP 36.8; O2SAT 95
[2016-10-17] MEDS: TRAMADOL HCL 50 MG TAB PO PRN (04:57)
[2016-10-17 07:33] VITALS: BP 134/78; PULSE 64; TEMP 36.8; O2SAT 95
[2016-10-17 08:00] VITALS: O2SAT 95
[2016-10-17] MEDS: ASPIRIN 81 MG ECTAB PO SCH (08:11)
[2016-10-17] MEDS: PANTOprazole SOD 40 MG TAB PO SCH (08:11)
[2016-10-17] MEDS: CYANOCOBALAMIN 500 MCG TAB (VIT B-12) PO SCH (08:11)
[2016-10-17] MEDS: LACTOBACILLUS ACIDOPHILUS (FLORANEX) TAB PO SCH ×3 (08:11→16:36)
[2016-10-17] MEDS: RASPBERRY SYRUP 5 ML UDP PO SCH ×3 (08:11→16:35)
[2016-10-17] MEDS: CLOPIDOGREL BISULFATE 75 MG TAB PO SCH (08:11)
[2016-10-17] MEDS: VANCOMYCIN HCL 250 MG/5 ML SOLN PO SCH ×3 (08:11→16:36)
[2016-10-17] MEDS: MICONAZOLE NITRATE-7 (100 MG EA SUPP) BOX PV SCH (08:12)
[2016-10-17] MEDS: PAROXETINE 20 MG TAB PO SCH (08:12)
[2016-10-17] MEDS: LEVETIRACETAM 500 MG TAB PO SCH (08:12)
[2016-10-17] MEDS: NICOTINE 21 MG/24 HR TDSY TD SCH (08:12)
[2016-10-17] MEDS: POTASSIUM CHLORIDE 20 MEQ TABCR PO SCH (08:13)
[2016-10-17 08:21] LABS: HEMATOCRIT 37.1 % (37-47); MEAN CELL VOLUME 90.3 fL (80-100); MEAN CORPUSCULAR HEMOGLOBIN 28.7 pg (25-34); MEAN CORPUSCULAR HGB CONC 31.8 g/dl (32-36); MEAN PLATELET VOLUME 9.1 fL (7.4-10.4); PLATELET COUNT 350 K/uL (130-400); RED BLOOD COUNT 4.11 M/uL (4.2-5.4); WHITE BLOOD COUNT 11.81 K/uL (4.8-10.8)
[2016-10-17] MEDS: FIDAXOMICIN TAB 200 MG TAB PO SCH (08:49)
[2016-10-17] MEDS: MAGNESIUM SULFATE 1GM / D5W 1 GM in PREMIXED IN D5W 100 ML IV SCH ×2 (08:49→09:43)
--- NOTE | 2016-10-17 10:05 | Progress Note ---
Subjective Date of Service: Oct 17, 2016. Subjective pt remains on d ciff rx. diarrhea improving, wbc improving, afebrile. no overnight events. Problem List Medical Problems: (1) Acute renal failure Status: Acute (2) Anxiety State Nos Status: Chronic (3) C. difficile diarrhea Status: Acute (4) Confusion Status: Acute (5) Depression Status: Chronic (6) Esophageal Reflux Status: Chronic (7) HTN (hypertension) Status: Chronic (8) Hyperlipidemia Nec/Nos Status: Chronic (9) Hypocalcemia Status: Acute (10) Hypokalemia Status: Acute (11) Hypomagnesemia Status: Acute (12) Hypomagnesemia Status: Acute (13) Nausea & vomiting Status: Acute (14) Paresthesia Status: Acute (15) Seizure Status: Chronic (16) Sepsis Status: Acute (17) Urinary tract infection Status: Acute Surgical Problems: (1) Urinostomy Status Nec Status: Chronic Objective Vital Signs Date Time Temp Pulse Resp B/P (MAP) Pulse Ox O2 Delivery O2 Flow Rate FiO2 10/17/16 08:00 95 Room Air 10/17/16 07:33 36.8 64 16 134/78 (96) 95 10/17/16 00:09 36.8 60 20 136/74 (94) 95 Room Air 10/17/16 00:00 Room Air 10/16/16 16:00 Room Air 10/16/16 16:00 36.9 59 20 114/61 (78) 96 Room Air Laboratory Results Item Value Date Time C.difficile Toxin B Gene (PCR) - Final Complete 10/09/161954 Stool Positive for C. difficile toxin B gene Last 24 Hours Test 10/17/16 06:07 White Blood Count 11.81 K/uL Red Blood Count 4.11 M/uL Hemoglobin 11.8 g/dL Hematocrit 37.1 % Mean Corpuscular Volume 90.3 fL Mean Corpuscular Hemoglobin 28.7 pg Mean Corpuscular Hemoglobin Concent 31.8 g/dl RDW Standard Deviation 52.7 fL RDW Coefficient of Variation 15.9 % Platelet Count 350 K/uL Mean Platelet Volume 9.1 fL Magnesium Level 1.7 mg/dl Assessment and Plan (1) C. difficile colitis Assessment & Plan: continue abx, upon d/c can change to vanco 125mg po tid x 7 days, bid x 7 days, once daily x 7 days. ok for d/c when medically stable (2) Urinary tract infection (3) Leukocytosis
--- NOTE | 2016-10-17 15:22 | Progress Note ---
Medicine Progress Note Date & Time of Visit: Oct 17, 2016 at 14:52. Subjective Pt was seen and examined Sitting at the edge of the bed with at bedside Pt is eager to go home today But she is very anxious because her Gonzalez cath has not been working properly Pt said that she is trying to reach the urologist at [facility] Pt said that the diarrhea improves denies any chest pain, palpitation, weakness chills, fever and SOB Objective Last 8 Hrs Date Time Temp Pulse Resp B/P (MAP) Pulse Ox O2 Delivery O2 Flow Rate FiO2 10/17/16 08:00 95 Room Air 10/17/16 07:33 36.8 64 16 134/78 (96) 95 Physical Exam: General- No acute distress Head- atraumatic Eyes- PERRL, EOMI ENT- oropharynx clear Neck- supple, no JVD Lungs- clear to auscultation Heart- regular rhythm Abdomen- normal bowel sounds, soft Extremities- no calf tenderness Neuro- alert, oriented x 3; PERRL, EOMI; no facial palsy Skin- warm & dry Laboratory Results: Last 24 Hours Test 10/17/16 06:07 White Blood Count 11.81 K/uL Red Blood Count 4.11 M/uL Hemoglobin 11.8 g/dL Hematocrit 37.1 % Mean Corpuscular Volume 90.3 fL Mean Corpuscular Hemoglobin 28.7 pg Mean Corpuscular Hemoglobin Concent 31.8 g/dl RDW Standard Deviation 52.7 fL RDW Coefficient of Variation 15.9 % Platelet Count 350 K/uL Mean Platelet Volume 9.1 fL Magnesium Level 1.7 mg/dl Assessment & Plan C. Diff Colitis Recent discharged with a 10 day supply of Flagyl for C. Diff ( stool c diff positive on 10/05/16 ) pt mentions of taking Meds religiously has not missed any dose diarrhea persisted had colonoscopy on October 03 -by Dr Claire Milton -showed normal exam of descending colon , transverse colon , ascending colon -diffuse mild inflammation characterized by congestion ( edema ), erythema and granularity was found in recto-sigmoid Biopsy taken : Pathology : Colon : mild acute/chronic inflammation of the lamina propria, increased intraepithelial lymphocytes are not seen pt started on PO vancomycin for ongoing Diarrhea /C diff Stool specimen positive for C diff this admission as well presented with abdominal pain /worsening of diarrhea /stool incontinence associated with Leukocytosis appreciate input form ID started to Dificid trial to see improvement of C diff infection CT abdomen /pelvis : 10/11/16 -Mild ileus with no evidence for true obstructive change. -Moderate cellulitis of the anterior abdominal wall superior to the umbilicus. No evidence for drainable abscess or collection. GI on board pt will need to continue tx for C diff started on Colestid -for possible bile acid causing chronic diarrhea ID recommended to discharge on taper dose of PO vanco 125mg po tid x 7 days, bid x 7 days, once daily x 7 days URINARY RETENTION ; resolved after Gonzalez Catheter placement hx of bladder Ca s/p bladder resection -marlin pouch created using proximal bowel loop in [place] opening of pouch has been increasingly stenoses pt was unable to effectively do straight cath possible causing abdominal pain /cramps cont Gonzalez drainage Urology eval requested appreciate input pt needs to follow up at [facility] for further management -no appointment available till November pt will continue on chronic Gonzalez till then will need Home health Visiting nurse for Gonzalez maintenance Gonzalez needs to be flushes as needed for low urine out put /blockage Needs to be changed every 6-8 weeks or sooner if needed position of the opening is difficult for pt to see for Gonzalez Insertion Home health vising nurse can assist in Gonzalez change Case discussed with Pt urologist Dr. Rufino Mcclelland recommended to deflate the Gonzalez and continue irrigation Once pt Cdiff is cleared, need to call the urologist office in [facility] to schedule for surgery Dr. Diaz number is [phone] ABDOMINAL WALL CELLULITIS ; symptom resolved -no pain or discomfort after urinary retention resolved evident in CT abdomen /pelvis pt mentions of having lower abdominal pain past few weeks has marlin pouch opening lateral to umbilicus opening has been very stenotic pt mentions of having increased difficulty doing straight cath through that opening noticed blood in few occasions was scheduled to be at [facility] tomorrow for dilatation of the stoma possible source of cellulitis could be abdominal wall trauma due to narrow stoma and catheter manipulation General surgery team consulted -appreciate input no surgical intervention indicated does not belief hernia mesh infection cont to monitor recommend out pt surgery follow up will need to reschedule urology appointment at [place] for stenosis in the opening of [place] pouch stoma Acute Kidney Injury superimposed on CKD stage 3 resolved secondary to diarrhea improved with IV fluids Stable Hypokalemia, Hypomagnesemia secondary to diarrhea/GI loss resolved UTI Hx of bladder CA s/p Cystectomy/ Recurrent UTIs due to self-catheterizations patient presents with recurrent UTIs; recent treatment 3 weeks prior urine culture enterococcus appreciate input form ID completed PO Amoxicillin for 3 days WT GAIN OF APPROX 10 LB : possible due to vol overload pt also developed increased ankle edema since this admission pt received approx 3 L IV fluids since admission for diarrhea /GI loss/ATN renal function improved to baseline trial of Lasix ordered follow daily wt /input /out put HTN continue home meds COPD/Tobacco Use Disorder Nicotine patch no exacerbation Hx. of Seizure Disorder continue Keppra DVT ppx will D/C sub q heparin active colitis reports of blood in stool few days back ambulate SCD and teds ordered FULL CODE DISPOSITION possible discharged home today Medicine follow up with Dr Kaiser Follow with Urology at [facility] Consultants: ID Urology General surgery Current Inpatient Medications: Current Inpatient Medications Medications (Trade) Dose Ordered Sig/Sujit Route Start Time Stop Time Status Last Admin Dose Admin Nicotine (Nicoderm Cq 21MG Patch) 1 patch QAM TD 10/10/16 08:00 11/09/16 08:59 10/17/16 08:12 1 PATCH Miscellaneous (Remove Nicoderm Patch) 1 ea HS N/A 10/10/16 21:00 11/09/16 20:59 Aspirin (Ecotrin Tab) 81 mg QAM PO 10/10/16 08:00 11/09/16 07:59 10/17/16 08:11 81 MG Clopidogrel Bisulfate (plAVix TAB) 75 mg QAM PO 10/10/16 08:00 11/09/16 07:59 10/17/16 08:11 75 MG Levetiracetam (Keppra Tab) 500 mg BID PO 10/10/16 08:00 11/09/16 07:59 10/17/16 08:12 500 MG Paroxetine HCl (pAXil TAB) 20 mg QAM PO 10/10/16 08:00 11/09/16 07:59 10/17/16 08:12 20 MG Simvastatin (Zocor Tab) 20 mg HS PO 10/10/16 22:00 11/09/16 21:59 10/16/16 20:06 20 MG Buspirone HCl (Buspar Tab) 10 mg BID PO 10/10/16 08:00 11/09/16 07:59 10/17/16 08:11 10 MG Cyanocobalamin (Vitamin B-12 Tab) 1,000 mcg QAM PO 10/10/16 08:00 11/09/16 07:59 10/17/16 08:11 1,000 MCG Pantoprazole Sodium (Protonix Tab) 40 mg QAM PO 10/10/16 08:00 11/09/16 07:59 10/17/16 08:11 40 MG Potassium Chloride (Klor-Con Tab) 20 meq BID PO 10/10/16 08:00 11/09/16 07:59 10/17/16 08:13 20 MEQ Raspberry (Raspberry Syrup 5ml Cup) 5 ml QID PO 10/10/16 04:30 10/24/16 04:29 10/17/16 11:31 5 ML Fidaxomicin (Dificid Tab) 200 mg BID PO 10/12/16 20:00 10/26/16 19:59 10/17/16 08:49 200 MG Vancomycin HCl (Vancomycin Oral Soln) 250 mg QID PO 10/12/16 12:00 10/26/16 11:59 10/17/16 11:31 250 MG Cyclobenzaprine HCl (Flexeril Tab) 5 mg TID PRN PO 10/12/16 18:30 11/11/16 18:29 10/15/16 08:42 5 MG Ondansetron HCl (Zofran Odt) 4 mg Q6H PRN PO 10/14/16 12:15 11/13/16 12:14 Lorazepam (Ativan Tab) 0.5 mg Q8 PRN PO 10/14/16 12:15 11/13/16 12:14 10/14/16 16:03 0.5 MG Tramadol HCl (Ultram Tab) 50 mg Q8 PRN PO 10/14/16 13:00 11/13/16 12:59 10/17/16 04:57 50 MG Lactobacillus Acidophilus (Floranex Tab) 4 tab TIDM PO 10/15/16 13:00 11/14/16 12:59 10/17/16 11:31 4 TAB Miconazole Nitrate (Monistat 7 Vag Supp) 1 supp DAILY PV 10/16/16 10:00 10/23/16 09:59 10/17/16 08:12 1 SUPP
[2016-10-17 15:51] VITALS: BP 111/73; PULSE 62; TEMP 36.8; O2SAT 97
[2016-10-17 16:00] VITALS: O2SAT 95
[2016-10-17] MEDS ORDERED: VANC5CAP PO (16:40)
[2016-10-17 16:45] VITALS: BP 111/73; PULSE 62; TEMP 36.8; O2SAT 95
--- NOTE | 2016-10-18 17:07 | Discharge Summary ---
Discharge Summary Date of Service Oct 18, 2016. Discharge Summary Admission Date: Oct 09, 2016 at 21:27 Discharge Date: Oct 17, 2016 Discharge Disposition: Home with services Principal Diagnosis: C. Diff Colitis Secondary Diagnoses/Problems: URINARY RETENTION ABDOMINAL WALL CELLULITIS Acute Kidney Injury superimposed on CKD stage 3 Hypokalemia/Hypomagnesemia WT GAIN UTI HTN COPD Tobacco abuse Hx of Seizure dx Procedures: CHEST ONE VIEW PORTABLE CLINICAL HISTORY: ABDOMINAL PAIN/GI pain COMPARISON STUDY: 09/02/2016 FINDINGS: The bones soft tissues and hemidiaphragms are normal. The cardiomediastinal silhouette is normal. The lungs are clear. The pulmonary vasculature is normal. IMPRESSION: Negative chest. Electronically signed by: Gilles Parson M.D. 10/09/2016 7:20 PM Dictated Date/Time: 10/09/2016 7:19 PM ABDOMEN AND PELVIS CT WITHOUT CONTRAST CT DOSE: 1285.37 mGy.cm HISTORY: Pain recurrent C diff /abdominal pain TECHNIQUE: Multiaxial CT images of the abdomen and pelvis were performed without contrast. COMPARISON STUDY: None. FINDINGS: Lung bases are clear. Liver is uniform. Several right renal cysts unchanged. Small posterior exophytic exophytic left renal cyst unchanged. Mild nonobstructive ileus. Postoperative changes to the bowel which of been described previously. Pancreas is uniform. Moderate enlargement left adrenal unchanged. Central abdominal wall infiltrative change and/or cellulitis. Superior to the umbilicus. No free fluid within the pelvic cul-de-sac. IMPRESSION: 1. Stable postoperative changes. 2. Stable bilateral renal cysts. 3. Mild ileus with no evidence for true obstructive change. 4. Moderate cellulitis of the anterior abdominal wall superior to the umbilicus. No evidence for drainable abscess or collection. Electronically signed by: Gilles Parson M.D. 10/11/2016 9:38 PM Dictated Date/Time: 10/11/2016 9:33 PM [~ rep ct add3]] KUB CLINICAL HISTORY: c.diff, ileus, please measure distention COMPARISON STUDY: 11/03/2014 FINDINGS: The soft tissues, psoas shadows, renal outlines and intestinal gas pattern appear normal. There is no evidence for bowel obstruction. No abnormal abdominal calcifications are seen. Bowel pattern is nonobstructive. No evidence of bowel distention. IMPRESSION: Normal study. Electronically signed by: Gilles Parson M.D. 10/13/2016 7:41 AM Dictated Date/Time: 10/13/2016 7:39 AM Consultations: ID Urology General surgery Medication Reconciliation New Medications: Vancomycin Hcl (Vancomycin) 125 Mg Cap 1 TAB PO UD for 21 Days Take 1 tab po TID for 7 days, then 1 tab BID for 7 days, then 1 tab daily for 7 days. Colestipol HCl (Colestid) 1 Gm Tab 1 GM PO BID for 30 Days, #60 TAB Cyclobenzaprine HCl (Cyclobenzaprine HCl) 5 Mg Tab 5 MG PO TID PRN for muscle spasm /abdominal cramps for 30 Days, #90 TAB Continued Medications: Aspirin (Aspirin Ec) 81 Mg Tab 81 MG PO QAM Buspirone Hcl (Buspirone Hcl) 10 Mg Tab 10 MG PO BID, TAB Clopidogrel (Plavix) 75 Mg Tab 75 MG PO QAM, TAB Cyanocobalamin (Vitamin B12) 1,000 Mcg Tab 1 TAB PO QAM Levetiracetam (Keppra) 500 Mg Tab 1 TAB PO BID for 30 Days, #60 TAB 5 Refills Omeprazole (Prilosec) 20 Mg Cap 20 MG PO QAM Paroxetine (Paxil) 20 Mg Tab 20 MG PO QAM, TAB Potassium Chloride (K-Tab) 20 Meq Tab 1 TAB PO BID Simvastatin (Zocor) 20 Mg Tab 20 MG PO HS, TAB Discontinued Medications: Cholestyramine (Cholestyramine) 4 Gm Pow 1 PKT PO DAILY, #30 Admission Information HPI (per Admitting provider): 61 year old female with PMHX of Bladder CA s/p cystectomy, COPD chronic tobacco abuse, anxiety, HTN, CKD stage 3, seizures, was recently admitted for UTI and Cdiff and discharged on 09/04 on Abx, Present to the ER for recurrent episodes of diarrhea associated with abdominal pain. Pt said that she completed flagyl for about 2 weeks now. Pt said that she continues to have watery diarrhea since discharge back in August. she said that she has more than 15 episodes of diarrhea. she said that the diarrhea is getting worst. She is also having crampy abdominal pain, no radiated, located in the mid abdomen, grade 8/10 and associated with nausea. Pt had a colonoscopy done on 10/03 that only showed d iffuse mild inflammation was found in the recto-sigmoid colon. Pt also said that she feels very weak and has not been eating much. She also feels numbness and tingling all over her body like something is crawling over her skin. She denies any chest pain, palpitation, dizziness, vomiting, fever, dysuria and SOB. Physical Exam (per Admitting): General Appearance: WD/WN, no apparent distress, + obese Head: normocephalic, atraumatic Eyes: PERRL, EOMI ENT: hearing grossly normal Neck: supple, no JVD Respiratory/Chest: normal breath sounds, no respiratory distress, no accessory muscle use Cardiovascular: regular rate, rhythm, no JVD, no murmur Abdomen/GI: normal bowel sounds, soft, + tenderness Back: no CVA tenderness Extremities/Musculoskelatal: no calf tenderness Neurologic/Psych: alert, normal mood/affect, oriented x 3 Skin: warm/dry, no rash Hospital Course C. Diff Colitis Recent discharged with a 10 day supply of Flagyl for C. Diff ( stool c diff positive on 10/05/16 ) pt mentions of taking Meds religiously has not missed any dose diarrhea persisted had colonoscopy on Monday, October 03 -by Dr Claire Milton -showed normal exam of descending colon , transverse colon , ascending colon -diffuse mild inflammation characterized by congestion ( edema ), erythema and granularity was found in recto-sigmoid Biopsy taken : Pathology : Colon : mild acute/chronic inflammation of the lamina propria, increased intraepithelial lymphocytes are not seen pt started on PO vancomycin for ongoing Diarrhea /C diff Stool specimen positive for C diff this admission as well presented with abdominal pain /worsening of diarrhea /stool incontinence associated with Leukocytosis appreciate input form ID started to Dificid trial to see improvement of C diff infection CT abdomen /pelvis : 10/11/16 -Mild ileus with no evidence for true obstructive change. -Moderate cellulitis of the anterior abdominal wall superior to the umbilicus. No evidence for drainable abscess or collection. GI on board pt will need to continue tx for C diff started on Colestid -for possible bile acid causing chronic diarrhea ID recommended to discharge on taper dose of PO vanco 125mg po tid x 7 days, bid x 7 days, once daily x 7 days URINARY RETENTION resolved after Mendez Catheter placement hx of bladder Ca s/p bladder resection -marlin pouch created using proximal bowel loop in [place] opening of pouch has been increasingly stenoses pt was unable to effectively do straight cath possible causing abdominal pain /cramps cont Mendez drainage Urology eval requested appreciate input pt needs to follow up at [facility] for further management -no appointment available till November pt will continue on chronic Mendez till then will need Home health Visiting nurse for Mendez maintenance Mendez needs to be flushes as needed for low urine out put /blockage Needs to be changed every 6-8 weeks or sooner if needed position of the opening is difficult for pt to see for Mendez Insertion Home health vising nurse can assist in Mendez change Case discussed with Pt urologist Dr. Rufino Mcclelland recommended to deflate the Mendez and continue irrigation Once pt Cdiff is cleared, need to call the urologist office in [facility] to schedule for surgery Dr. Diaz number is [phone] ABDOMINAL WALL CELLULITIS symptom resolved -no pain or discomfort after urinary retention resolved evident in CT abdomen /pelvis pt mentions of having lower abdominal pain past few weeks has marlin pouch opening lateral to umbilicus opening has been very stenotic pt mentions of having increased difficulty doing straight cath through that opening noticed blood in few occasions was scheduled to be at [facility] tomorrow for dilatation of the stoma possible source of cellulitis could be abdominal wall trauma due to narrow stoma and catheter manipulation General surgery team consulted -appreciate input no surgical intervention indicated does not belief hernia mesh infection cont to monitor recommend out pt surgery follow up will need to reschedule urology appointment at [place] for stenosis in the opening of [place] pouch stoma Acute Kidney Injury superimposed on CKD stage 3 resolved secondary to diarrhea improved with IV fluids Stable Hypokalemia/Hypomagnesemia secondary to diarrhea/GI loss resolved UTI Hx of bladder CA s/p Cystectomy/ Recurrent UTIs due to self-catheterizations patient presents with recurrent UTIs; recent treatment 3 weeks prior urine culture enterococcus appreciate input form ID completed PO Amoxicillin for 3 days WT GAIN OF APPROX 10 LB : possible due to vol overload pt also developed increased ankle edema since this admission pt received approx 3 L IV fluids since admission for diarrhea /GI loss/ATN renal function improved to baseline trial of Lasix ordered follow daily wt /input /out put HTN continue home meds COPD/Tobacco Use Disorder Nicotine patch no exacerbation Hx. of Seizure Disorder continue Keppra DVT ppx will D/C sub q heparin active colitis reports of blood in stool few days back ambulate SCD and teds ordered FULL CODE DISPOSITION possible discharged home today Medicine follow up with Dr Kaiser Follow with Urology at [facility] Total time spent on discharge = 35 minutes This includes examination of the patient, discharge planning, medication reconciliation, and communication with other providers. Discharge Instructions Discharge Instructions Date of Service Oct 13, 2016. Admission Reason for Admission: Diarrhea Discharge Discharge Diagnosis / Problem: RECURRENT C DIFF /ABDOMINAL PAIN Discharge Goals Goal(s): Decrease discomfort, Diagnostic testing, Therapeutic intervention Activity Recommendations Activity Limitations: resume your previous activity Shower/Bathe: no limitations Driving or Machine Use: no limitations . Instructions / Follow-Up Instructions / Follow-Up HOSPITAL FOLLOWUP ON 10/21/2016 @ 11:[address] Cyril Kaiser MD General Internal Medicine [facility] ( YOUR APPOINTMENT ON 10/17/16 IS CANCELLED ) CONTINUE MENDEZ CATHETER TILL EVALUATION BY UROLOGY AT [facility] MAY ASK FOR REFERRAL AT [facility] IF NO EARLIER APPOINTMENT AVAILABLE IN [place] FLUSH MENDEZ IF NOTICE DECREASE IN URINE OUT PUT /ABDOMINAL DISCOMFORT MENDEZ SHOULD BE CHANGED 6-8 WEEKS OR SOONER IF BLOCKAGE NOTED CONTINUE TO HAVE CONTACT PRECAUTION ; WASH YOUR HAND WITH SOAP AND WATER AFTER EACH TIME USING BATHROOM KEEP ALL YOUR UTENSILS /PERSONAL ITEMS SEPARATE YOU CAN CLEAN TOILET RIM /SINK /FAUCET -DOOR KNOBS -SITES OF CONTACT WITH CHLORAX WIPE -EFFECTIVE IN KILLING SPORES OF C DIFF CONTINUE VANCOMYCIN TAPER DOSE DIRECTED FOLLOW UP WITH YOUR UROLOGY AT [facility] (PLEASE CALL TO SCHEDULE APPOINTMENT) Current Hospital Diet Patient's current hospital diet: Low Fiber Diet Discharge Diet Recommended Diet: Low Fiber Diet Pending Studies Studies pending at discharge: no Medical Emergencies . Who to Call and When: Medical Emergencies: If at any time you feel your situation is an emergency, please call 911 immediately. . Non-Emergent Contact Non-Emergency issues call your: Primary Care Provider . . "Provider Documentation" section prepared by Nahed Juan. . VTE Core Measure Inpt VTE Proph given/why not?: GILL Mckoy's Additional Copies To Cryil Kaiser MD
== END 2016-10-17 17:30 | disposition home health service (06) | DRG 372 ==
LOC: C.EDB 18:51 → C.MS4W 21:27 → ENRESERV 22:09
PROVIDERS: ADMIT Internal Medicine; ATTEND Internal Medicine
DX: A04.7 Enterocolitis due to Clostridium difficile (principal); N39.0 Urinary tract infection, site not specified; N17.9 Acute kidney failure, unspecified; L03.311 Cellulitis of abdominal wall; E87.6 Hypokalemia; Z85.51 Personal history of malignant neoplasm of bladder; K21.9 Gastro-esophageal reflux disease without esophagitis; N18.3 Chronic kidney disease, stage 3 (moderate); J44.9 Chronic obstructive pulmonary disease, unspecified; I12.9 Hypertensive chronic kidney disease with stage 1 through stage 4 chronic kidney disease, or unspecified chronic kidney disease; E78.5 Hyperlipidemia, unspecified; Z86.73 Personal history of transient ischemic attack (TIA), and cerebral infarction without residual deficits; F17.210 Nicotine dependence, cigarettes, uncomplicated; E83.42 Hypomagnesemia; E83.51 Hypocalcemia; Z90.6 Acquired absence of other parts of urinary tract; Z93.6 Other artificial openings of urinary tract status; E86.0 Dehydration; Z85.41 Personal history of malignant neoplasm of cervix uteri; R33.9 Retention of urine, unspecified; E87.70 Fluid overload, unspecified

== ENCOUNTER → 2017-01-17 | Outpatient (CLI) | payer OTHER ==
[~2017-01-17] MED LIST changes: -AMPI500C9 PO; +CLS1 PO; +FLX5 PO; -MELO15TA10 PO; +VANC5CAP PO
[2017-01-17 12:31] LABS: BASO % 0.4 %; BASO ABS # 0.05 K/uL (0-0.2); COMPLETE YES; HEMATOCRIT 44.1 % (37-47); IG% 0.5 %; LYMPH % 14.2 %; LYMPH ABS # 1.93 K/uL (1.2-3.4); MEAN CELL VOLUME 90.9 fL (80-100); MEAN CORPUSCULAR HEMOGLOBIN 29.9 pg (25-34); MEAN CORPUSCULAR HGB CONC 32.9 g/dl (32-36); MEAN PLATELET VOLUME 9.4 fL (7.4-10.4); MONO % 5.6 %; NEUT % 78.3 %; PLATELET COUNT 369 K/uL (130-400); RED BLOOD COUNT 4.85 M/uL (4.2-5.4); WHITE BLOOD COUNT 13.62 K/uL (4.8-10.8)
[2017-01-17 13:14] LABS: LYME DISEASE AB IGG NEG (NEG); LYME DISEASE AB IGM NEG (NEG)
[2017-01-17 13:17] LABS: ALT/SGPT 18 U/L (12-78); BLOOD UREA NITROGEN 17 mg/dl (7-18); BUN/CREATININE RATIO 14.5 (10-20); CALCIUM 9.1 mg/dl (8.5-10.1); CARBON DIOXIDE 23 mmol/L (21-32); CHLORIDE 109 mmol/L (98-107); CHOLESTEROL 196 mg/dl (0-200); GLUCOSE,FASTING 102 mg/dl (70-99); POTASSIUM 3.8 mmol/L (3.5-5.1); SODIUM 142 mmol/L (136-145)
[2017-01-17 13:27] LABS: ALB/GLOB RATIO 0.8 (0.9-2); ALKALINE PHOSPHATASE 125 U/L (45-117); AST/SGOT 14 U/L (15-37); CHOLESTEROL/HDL RATIO 3.6; HDL CHOLESTEROL 55 mg/dl; LDL CHOLESTEROL CALCULATED 104 mg/dl; TRIGLYCERIDES 183 mg/dl (0-150); VERY LOW DENSITY LIPOPROT CALC 37 mg/dl
== END | disposition home or self-care (01) ==
LOC: C.LABPBG 09:28
PROVIDERS: ATTEND Physician Assistant
DX: Z00.00 Encounter for general adult medical examination without abnormal findings (principal); R53.83 Other fatigue; Z13.21 Encounter for screening for nutritional disorder

== ENCOUNTER → 2017-02-13 | Outpatient (CLI) | payer OTHER ==
[2017-02-13 15:06] LABS: FERRITIN 17.9 ng/ml (8.0-388.0)
== END | disposition home or self-care (01) ==
LOC: C.LABPBG 10:04
PROVIDERS: ATTEND Physician Assistant
DX: L65.9 Nonscarring hair loss, unspecified (principal)

== ENCOUNTER → 2017-07-24 | Outpatient (CLI) | payer OTHER | END | disposition home or self-care (01) | LOC: C.LABPBG 11:07 | PROVIDERS: ATTEND Physician Assistant | DX: R53.83 Other fatigue (principal); E55.9 Vitamin D deficiency, unspecified ==

== ENCOUNTER → 2017-08-28 | Outpatient (CLI) | payer OTHER | END | disposition home or self-care (01) | LOC: C.LABPBG 12:22 | PROVIDERS: ATTEND Physician Assistant | DX: Z01.812 Encounter for preprocedural laboratory examination (principal); R39.9 Unspecified symptoms and signs involving the genitourinary system ==

== ENCOUNTER → 2017-08-29 | Outpatient (CLI) | payer OTHER ==
[2017-08-29 17:57] LABS: ALBUMIN 3.4 gm/dl (3.4-5.0); ALT/SGPT 20 U/L (12-78); AST/SGOT 14 U/L (15-37); BLOOD UREA NITROGEN 18 mg/dl (7-18); CALCIUM 9.2 mg/dl (8.5-10.1); CARBON DIOXIDE 25 mmol/L (21-32); CREATININE 1.36 mg/dl (0.60-1.20); GLUCOSE 125 mg/dl (70-99); POTASSIUM 3.6 mmol/L (3.5-5.1); SODIUM 141 mmol/L (136-145)
[2017-08-29 18:00] LABS: ALKALINE PHOSPHATASE 120 U/L (45-117)
== END | disposition home or self-care (01) ==
LOC: C.LABPBG 09:34
PROVIDERS: ATTEND Family Medicine
DX: Z01.818 Encounter for other preprocedural examination (principal); R39.9 Unspecified symptoms and signs involving the genitourinary system

== ENCOUNTER → 2017-11-03 | Outpatient (CLI) | payer OTHER ==
[2017-11-03 13:45] LABS: ALBUMIN 3.2 gm/dl (3.4-5.0); ALKALINE PHOSPHATASE 117 U/L (45-117); ALT/SGPT 21 U/L (12-78); AST/SGOT 15 U/L (15-37); BLOOD UREA NITROGEN 17 mg/dl (7-18); CALCIUM 8.7 mg/dl (8.5-10.1); CARBON DIOXIDE 26 mmol/L (21-32); CREATININE 1.29 mg/dl (0.60-1.20); GLUCOSE 97 mg/dl (70-99); POTASSIUM 3.8 mmol/L (3.5-5.1); SODIUM 141 mmol/L (136-145); TOTAL PROTEIN 7.4 gm/dl (6.4-8.2)
== END | disposition home or self-care (01) ==
LOC: C.LABPBG 10:47
PROVIDERS: ATTEND Physician Assistant
DX: R39.9 Unspecified symptoms and signs involving the genitourinary system (principal); R79.89 Other specified abnormal findings of blood chemistry

== ENCOUNTER 2019-05-19 13:47 | Inpatient (IN) ==
[2019-05-19] MEDS ORDERED: ACETAMINOPHEN 500 MG TAB PO STA (13:59)
[2019-05-19] MEDS ORDERED: SODIUM CHLORIDE 0.9% 1000ML 1,000 ML IV SCH (14:00)
[2019-05-19] MEDS ORDERED: LORazepam 1 MG/2 ML VIAL IV STA (14:07)
[2019-05-19 14:26] LABS: Basophils # (auto) 0.05 K/uL (0-0.2); Basophils % (auto) 0.4 %; Eosinophils # (auto) 0.05 K/uL (0-0.5); Eosinophils % (auto) 0.4 %; Hemoglobin 16.9 g/dL (12.0-16.0); Immature Granulocytes # (auto) 0.07 K/uL (0.00-0.02); Immature Granulocytes % (auto) 0.5 %; Lymphocytes # (auto) 2.12 K/uL (1.2-3.4); Lymphocytes % (auto) 15.9 %; Mean Corpuscular Hgb Conc 35.2 g/dL (32-36); Mean Corpuscular Volume 87.9 fL (80-100); Mean Platelet Volume 9.4 fL (7.4-10.4); Monocytes # (auto) 1.01 K/uL (0.11-0.59); Monocytes % (auto) 7.6 %; Neutrophils # (auto) 10.07 K/uL (1.4-6.5); Neutrophils % (auto) 75.2 %; Platelet Count 378 K/uL (130-400); RDW Coefficient of Variation 14.5 % (11.5-14.5); RDW Standard Deviation 46.9 fL (36.4-46.3); Red Blood Count 5.46 M/uL (4.2-5.4); White Blood Count 13.37 K/uL (4.8-10.8)
[2019-05-19 14:35] LABS: INR 1.3 (0.9-1.1)
--- NOTE | 2019-05-19 14:53 | XRay Report ---
SINGLE VIEW CHEST CLINICAL HISTORY: Generalized weakness. FINDINGS: An AP, portable, upright chest radiograph is compared to study dated 10/09/2016 and correlat ed with chest CT dated 10/22/2018. The examination is degraded by portable technique and patient rotati on. The heart is enlarged noting atherosclerotic calcification of the thoracic aorta. Emphysema and chronic interstitial thickening are similar to previous. There is mild bibasilar scarring/atelectasi s. No airspace consolidation or pleural effusion is identified. No pneumothorax is seen. The skeletal structures are osteopenic. The bony thorax is grossly intact. IMPRESSION: Cardiomegaly and emphysema with no active disease in the chest. ACT 112: Negative or not required by law. Electronically signed by: Alen Nice M.D. 05/19/2019 2:51 PM
[2019-05-19 14:59] LABS: Influenza A virus by PCR Neg for Influ A (Neg); Influenza B virus by PCR Neg for Influ B (Neg)
[2019-05-19 15:08] LABS: Alanine Aminotransferase 45 U/L (12-78); Albumin Globulin Ratio 0.8 (0.9-2); Albumin Level 3.6 gm/dl (3.4-5.0); Alkaline Phosphatase 117 U/L (45-117); Aspartate Aminotransferase 36 U/L (15-37); BUN Creatinine Ratio 11.5 (10-20); Bilirubin,Total 0.5 mg/dl (0.2-1); Blood Urea Nitrogen 19 mg/dl (7-18); Calcium 7.4 mg/dl (8.5-10.1); Carbon Dioxide 22 mmol/L (21-32); Chloride 105 mmol/L (98-107); Est GFR (African American) 36.6; Est GFR (Non-African American) 31.6; Globulin 4.7 gm/dl (2.5-4.0); Glucose 120 mg/dl (70-99); Magnesium 0.4 mg/dl (1.8-2.4); Phosphorus 3.2 mg/dl (2.5-4.9); Sodium 142 mmol/L (136-145); Thyroid Stimulating Hormone 0.879 uIu/ml (0.300-4.500); Total Protein 8.3 gm/dl (6.4-8.2); Troponin I < 0.015 ng/ml (0-0.045)
[2019-05-19] MEDS ORDERED: POTASSIUM CHLORIDE 20 MEQ TABCR PO STA ×3 (15:22→17:35)
[2019-05-19] MEDS ORDERED: CALCIUM CARBONATE 500 MG CHEWABLE TAB PO STA (15:22)
--- NOTE | 2019-05-19 15:41 | History & Physical Report ---
Date of Service May 19, 2019 Assessment & Plan (1) Diarrhea: -Admit to [facility] -Contact precautions with concern for C. difficile infection -Check C. difficile stool culture -Empirically started on p.o. Vanco -LR at 125 mL/h, received IV fluids in the ER -Pt denies recent antibiotics, but admit to having c diff about 1 year ago which require 3 months to resolve. (2) Hypomagnesemia: -MG = 0.4 on admission, replaced with 2 g IV -Recheck BMP at 1999 (3) Hypokalemia: -K+ = 3.0 on admission, replaced with p.o. 40 M EQ in the ER, repeat with additional 40 p.o. now, continue daily dosing as per home meds -Recheck BMP at 1999 (4) Hypocalcemia: -CA += 7.4 on admission (5) Dehydration: - Secondary to large GI volume losses as above - Replace with LR at 125 ml/hr (6) History of TIA (transient ischemic attack): - Hx of such, no residual sx (7) Prediabetes: - last A1C =5.23 October 2018, recheck - HH diet - Glucose 120 on admission, monitor with am bmp (8) Vitamin D deficiency: - Continue supplementation (9) Seizure disorder: - No recent seizure-like activity, well controlled with Keppra 500 mg BID (10) Morbid obesity: - Diet and exercise to be encouraged upon discharge - BMI not recorded per vitals yet. (11) Mild obstructive sleep apnea: - Pt continues to smoke, cessation encouraged. Will order a nicotine patch for the patient. (12) Generalized anxiety disorder: - Continue Paxil 20 mg daily, Buspar 15 mg BID (13) Depression: (14) Arthritis: - Stable (15) HTN (hypertension): - Holding HCTZ for now, BP stable (16) CKD (chronic kidney disease), stage III: - Cr = 1.67, BUN=19 - LR at 125 ml/hr, continue for now - Check UA now (17) GERD (gastroesophageal reflux disease): - Continue omeprazole (18) History of total cystectomy: - Hx of [place] pouch creation, follows with surgeon in [place] and was seen within the past 2 months for routine follow up. - Monitor Cr. and BUN since slightly elevated at time of admit - Will start cholystyramine for diarrhea improvement if there is no infection per stool cx (19) DVT prophylaxis: -teds, heparin subq CODE: FULL Dispo: From home, lives with History of Present Illness History of Primary Care Provider: Lorelei Hackett DO This is a 64 yo F with PMHx of HTN, HLD, seizure disorder, prediabetes, hx of [place] pouch creation 6 years ago at [place], COPD, current tobacco use with 1.5 PPD x40 years, CKD stage III, morbid obesity, hx of TIA, BELKIS, Vit D deficiency, anxiety and depression who presents with diarrhea which has been ongoing for approximately 1 month now. Patient notes that it is "yellow liquid just pouring out of her", feels bloated, and was extremely weak, with slight lightheadedness earlier today. She has not been able to do ADLs without difficulty at home recently due to fatigue and weakness. She has been able to take her regularly scheduled medications but reports occasionally feeling dry heaves with them. Her appetite has been very poor for 1 week, with minimal intake. She reports diarrhea has been getting worse in the last week. She admits to having C. difficile approximately 1 year ago which required 3 months for her to get over. She lives at home with her who has not shown any of the same symptoms. Denies sick contacts and recent consumption of raw or undercooked foods. Patient also denies antibiotic use within the past month or prior to onset of diarrhea. Upon presentation to the ER she has significant electrolyte abnormalities including K+ = 3.0, MG = 0.4, CA += 7.4, creatinine = 1.67, BUN = 19, glucose = 120. Allergies Allergy/AdvReac Type Severity Reaction Status Date / Time No Known Drug Allergies Allergy Unknown NONE Verified 05/19/19 15:09 Home Medications Home Medications Medication Instructions Recorded Confirmed Type aspirin 81 mg tablet,delayed 81 mg PO DAILY tab 10/24/18 05/19/19 History release hydrochlorothiazide 12.5 mg capsule 12.5 mg PO DAILY #90 cap 10/24/18 05/19/19 Rx levetiracetam 500 mg tablet 500 mg PO BID #60 tab 10/24/18 05/19/19 Rx omeprazole 20 mg capsule,delayed 20 mg PO DAILY #30 cap 07/10/19 02/02/20 Rx release potassium chloride 20 mEq 40 meq PO BID tab 10/24/18 05/19/19 History tablet,extended release clopidogrel 75 mg tablet 75 mg PO DAILY #90 tab 11/30/18 05/19/19 Rx simvastatin 20 mg tablet 20 mg PO QPM #90 tab 12/11/18 05/19/19 Rx buspirone 15 mg tablet 15 mg PO BID #180 tab 03/27/19 05/19/19 Rx cholecalciferol (vitamin D3) 1,000 unit PO DAILY 05/19/19 05/19/19 History [Vitamin D3] paroxetine HCl 20 mg PO DAILY 05/19/19 05/19/19 History Past Med/Surg History Surgical History H/O cataract extraction H/O hernia repair H/O: hysterectomy History of cystoscopy BIOPSY, TRANSURETHRAL RESECTION OF BLADDER TUMOR MEDIUM, [facility] 02/27/13 History of incisional hernia repair WITH IMPLANTATION OF MESH ONSET: [id number] OPEN REPAIR MULTIPLE FENESTRATION INCISIONAL HERNIA WITH 15 CM ONLAY MARLEX History of salpingo-oophorectomy PELVIC ABDOMINAL EX LAP, PERITONEAL WASH LAVAGE FOR CYTOLOGY, ADHESIOLYSIS, LEFT SALPINA-OOPHORECTOMY, OMENTECTOMY 10/24/12 History of total knee arthroplasty L knee Hx of colonoscopy NORMAL BIOPSY, DIVERTICULOSIS, REPEAT 1YR/ [facility] 01/01/15 Hx of total cystectomy "with ana pouch" 04/25/13 S/P arthroscopic partial medial meniscectomy ONSET: NOV 2014 PARTIAL MEDIAL MENISCECTOMY, PARTIAL LATERAL MENISCETOMY, CHONDROPLASTY. S/P left knee arthroscopy With partial medial meniscectomy, partial lateral meniscectomy, November 2014 Family History Mother COPD (chronic obstructive pulmonary disease) Myocardial infarction Sister Neurological disorder Breast cancer Unknown Stroke Hypertension Father Myocardial infarction Social History Preferred Language: Stateless Communication Ability: Effective Visual Impairment: No Limitations Hearing Ability: Normal Beliefs That Will Affect Care: None marital status: Current Living Situation: Spouse current occupational status: retired Other Information That Helps Us Care for You: No Feels Safe at Home: Yes Safety Concerns: Feels Safe At This Time Smoking Status: Current every day smoker Tobacco Type: cigarettes ; Age Started Using Tobacco: 16 ; packs per day: 1.5 ; Cigarettes Per Day: 30 ; Second Hand Exposure: No ; Hx Alcohol Use: No Hx Substance Use: No caffeine: No Physical Activity Frequency: 1-2 Times per Week Seatbelt Use: always Review of Systems Review of Systems: Constitutional: No fever, sweats or chills, + generalized fatigue and malaise Eyes: No diplopia, no worsening or blurred vision ENT: normal hearing, no trouble swallowing Respiratory: + Smoker, no cough, sputum, + dyspnea on exertion in the past week worsening Cardiovascular: No chest pain, tightness or palpitations Abdomen: + Poor appetite, + abdominal soreness, + dry heaves, + diarrhea as per HPI, + [place] pouch with yellow urine, no vomiting or constipation Musculoskeletal: No joint pain, calf pain, swelling Neurologic: + General weakness, no numbness/tingling, or balance problems Psychiatric: No anxiety or depression Skin: No rash or itch Physical Exam Physical Exam: General: awake, alert, no apparent distress, + morbidly obese, + smells of smoke Head: Normocephalic, atraumatic ENT: PERRL, EOMI, no pharyngeal exudate, mucous membranes moist Chest: + Diminished breath sounds throughout, on room air, no adventitious breat h sounds Cardiac: Regular rate and rhythm, no murmur, no JVD, normal peripheral pulses, good capillary refill Abdominal: + Diminished bowel sounds x 4 quadrants, + slightly distended, soft, nontender to palpation, + [place] pouch with yellow urine, no rebound, guarding or tenderness Extremities: Normal inspection, no peripheral edema or erythema, calfs nontender to palpation Psych: Normal mood, slightly anxious after Neuro: AAO x 3, strength intact bilaterally and related 5/5, no motor deficits, speech is clear, no peripheral sensory deficits Results & Data Vital Signs (Past 12 Hours) Vital Signs Temp Pulse Pulse Resp BP BP Pulse Ox 05/19/19 15:32 73 18 140/90 95 05/19/19 14:13 90 16 122/90 95 05/19/19 13:50 36.9 C 107 H 18 144/69 H 94 Diagnostic Findings SINGLE VIEW CHEST CLINICAL HISTORY: Generalized weakness. FINDINGS: An AP, portable, upright chest radiograph is compared to study dated 10/09/2016 and correlated with chest CT dated 10/22/2018. The examination is degraded by portable technique and patient rotation. The heart is enlarged noting atherosclerotic calcification of the thoracic aorta. Emphysema and chronic interstitial thickening are similar to previous. There is mild bibasilar scarring/atelectasis. No airspace consolidation or pleural effusion is identified. No pneumothorax is seen. The skeletal structures are osteopenic. The bony thorax is grossly intact. IMPRESSION: Cardiomegaly and emphysema with no active disease in the chest. ACT 112: Negative or not required by law. Electronically signed by: Alen Nice M.D. 05/19/2019 2:51 PM ECG Additional Comments: 19-MAY-2019 14:09:11 [facility]-EDSTAT ROUTINE RETRIEVAL Sinus rhythm with Premature supraventricular complexes Right bundle branch block Abnormal ECG When compared with ECG of 09-OCT-2016 19:27, Premature supraventricular complexes are now Present 25mm/s 10mm/mV 150Hz 9.0.9 12SL 241 ANTIONE: 16 Unconfirmed Vent. rate 88 BPM OK interval 134 ms QRS duration 138 ms QT/QTc 396/479 ms P-R-T axes 60 -5 39 Code Status & VTE Plan Code Status Full code-discussed with the patient at bedside Supervising Physician Co-Signing Physician Notes Patient seen and examined, chart reviewed, case discussed with KELLE Kerr and I agree with her assessment and plan as documented above. Briefly, patient is a 64yo C female presenting with 3 weeks of profuse, watery diarrhea, dehydration and electrolyte abnormalities. She reports 8-10 episodes of watery diarrhea per day. Nighttime episodes and incontinence as well. No relation to PO intake or dairy. No medication changes. No sick contacts. No recent antibiotics. Patient with history of cystectomy for bladder cancer s/p "Ana pouch" formation from a portion of bowel 6 years ago. She reports chronic diarrhea since then. On physical exam she is afebrile, HD stable Gen - NAD, resting comfortably Skin - warm, dry, intact HEENT - MMM, neck supple Heart - +S1/S2, regular, no m/r/g Lungs - CTA, no rales/rhonchi/wheezes Abd - +BS, soft, NT/ND Ext - no edema Labs and images reviewed. Patient with hypocalcemia, hypomagnesemia, hypokalemia. Dehydration and mild ASHA Assessment/Plan: -Admission to medical floor -K and Mag repletion -IVF -Repeat labs and 20:00 -Remainder of plan as above PG Care Time/CCT Total # of Minutes Spent Total Time Spent with Patient: Total time spent is greater than 50% in coordination of care (as documented) at patient's floor/unit and/or counseling patient: Coding Level of Care Code 74241 Initial Inpt Care Lvl 3 Diagnoses Diarrhea R19.7 Hypomagnesemia E83.42 Hypokalemia E87.6 Hypocalcemia E83.51 Dehydration E86.0 History of TIA (transient ischemic attack) Z86.73 Prediabetes R73.03 Vitamin D deficiency E55.9 Seizure disorder G40.909 Morbid obesity E66.01 Mild obstructive sleep apnea G47.33 Generalized anxiety disorder F41.1 Depression F32.9 Arthritis M19.90 HTN (hypertension) I10 CKD (chronic kidney disease), stage III N18.3 GERD (gastroesophageal reflux disease) K21.9 History of total cystectomy Z90.6 DVT prophylaxis Z29.9
[2019-05-19] MEDS ORDERED: INFLUENZA VACCINE HIGH DOSE 65+ 0.5 ML SYR IM ONE (15:53)
[2019-05-19] MEDS ORDERED: PNEUMOCOCCAL POLYSACCHARIDES 25 MCG/0.5 ML VIAL/SYR IM ONE (15:53)
[2019-05-19] MEDS ORDERED: INFLUENZA ADMINISTRATION CHARGE ONE (15:53)
[2019-05-19] MEDS ORDERED: PNEUMOCOCCAL ADMINISTRATION CHARGE ONE (15:53)
[2019-05-19] MEDS ORDERED: MAGNESIUM SULFATE / D5W 1 GM/100 ML BAG IV STA (17:18)
[2019-05-19] MEDS ORDERED: ONDANSETRON INJ 2 MG/ML 2 ML VIAL IV PRN (17:35)
[2019-05-19] MEDS ORDERED: ACETAMINOPHEN 325 MG TAB PO PRN (17:35)
--- NOTE | 2019-05-19 17:35 | Emergency Department Note ---
Entered by Norah Saez acting as a scribe for Min Kaiser MD History of Present Illness General Chief complaint: Illness Stated complaint: DIZZY, LIGHTHEADED, SOB Time Seen by Provider: 05/19/19 13:58 Source: patient Mode of arrival: wheelchair Limitations: no limitations History of Present Illness Onset (ago): month(s) 1 Location: head Radiation: non-radiation Pain Consistency: + constant Maximum Pain Intensity: 7 Current Pain Intensity: 7 Relieved By: + none Exacerbated By: + none Associated symptoms: + weakness and + other (+watery diarrhea, +dizziness); no nausea/vomiting Treatments prior to arrival: none The patient is a 64 year old white female w/ PMHx of anxiety, CKD, COPD, HTN and previous TIA who presents to the ED w/ CC of an illness beginning approximately 1 month ago. She complains of watery diarrhea, dizziness and weakness. She states she has not been able to eat and is experiencing "pins and needles" all throughout her body. She ratesher overall discomfort as a 7/10 in severity. She denies any vomiting. She has been chilled but is unsure if she's been febrile. She states "I did have the flu". She denies any recent sick contacts, travel or antibiotic use. The patient previously underwent a cystectomy and uses a urostomy. She follows with a physician in [place]. Home Medications Home Medications Medication Instructions Recorded Confirmed Type aspirin 81 mg tablet,delayed 81 mg PO DAILY tab 10/24/18 05/19/19 History release hydrochlorothiazide 12.5 mg capsule 12.5 mg PO DAILY #90 cap 10/24/18 05/19/19 Rx levetiracetam 500 mg tablet 500 mg PO BID #60 tab 10/24/18 05/19/19 Rx omeprazole 20 mg capsule,delayed 20 mg PO DAILY #30 cap 10/24/18 05/19/19 Rx release potassium chloride 20 mEq 40 meq PO BID tab 10/24/18 05/19/19 History tablet,extended release clopidogrel 75 mg tablet 75 mg PO DAILY #90 tab 11/30/18 05/19/19 Rx simvastatin 20 mg tablet 20 mg PO QPM #90 tab 12/11/18 05/19/19 Rx buspirone 15 mg tablet 15 mg PO BID #180 tab 03/27/19 05/19/19 Rx cholecalciferol (vitamin D3) 1,000 unit PO DAILY 05/19/19 05/19/19 History [Vitamin D3] paroxetine HCl 20 mg PO DAILY 05/19/19 05/19/19 History Allergies Allergy/AdvReac Type Severity Reaction Status Date / Time No Known Drug Allergies Allergy Unknown NONE Verified 05/19/19 15:09 Past Med/Surg History Surgical History H/O cataract extraction H/O hernia repair H/O: hysterectomy History of cystoscopy BIOPSY, TRANSURETHRAL RESECTION OF BLADDER TUMOR [facility], [facility] 02/27/13 History of incisional hernia repair WITH IMPLANTATION OF MESH ONSET: [id number] OPEN REPAIR MULTIPLE FENESTRATION INCISIONAL HERNIA WITH 15 CM ONLAY MARLEX History of salpingo-oophorectomy PELVIC ABDOMINAL EX LAP, PERITONEAL WASH LAVAGE FOR CYTOLOGY, ADHESIOLYSIS, LEFT SALPINA-OOPHORECTOMY, OMENTECTOMY 10/24/12 History of total knee arthroplasty L knee Hx of colonoscopy NORMAL BIOPSY, DIVERTICULOSIS, REPEAT 1YR/ [facility] 01/01/15 Hx of total cystectomy "with marlin pouch" 04/25/13 S/P arthroscopic partial medial meniscectomy ONSET: NOV 2014 PARTIAL MEDIAL MENISCECTOMY, PARTIAL LATERAL MENISCETOMY, CHONDROPLASTY. S/P left knee arthroscopy With partial medial meniscectomy, partial lateral meniscectomy, November 2014 Family History Mother COPD (chronic obstructive pulmonary disease) Myocardial infarction Sister Neurological disorder Breast cancer Unknown Stroke Hypertension Father Myocardial infarction Social History Preferred Language: Faroese Communication Ability: Effective Visual Impairment: No Limitations Hearing Ability: Normal Beliefs That Will Affect Care: None marital status: Current Living Situation: Spouse current occupational status: retired Other Information That Helps Us Care for You: No Feels Safe at Home: Yes Safety Concerns: Feels Safe At This Time Smoking Status: Current every day smoker Tobacco Type: cigarettes ; Age Started Using Tobacco: 16 ; packs per day: 1.5 ; Cigarettes Per Day: 30 ; Second Hand Exposure: No ; Hx Alcohol Use: No Hx Substance Use: No caffeine: No Physical Activity Frequency: 1-2 Times per Week Seatbelt Use: always Review of Systems See HPI for pertinent positives & negatives. and A total of 10 systems reviewed and were otherwise negative Physical Exam Vital Signs Vital Signs - 24 hr 05/19/19 13:50 05/19/19 14:13 05/19/19 14:14 Temperature 36.9 C Temperature Source Oral Pulse Rate 107 H 85 Pulse Rate [Finger] 90 Pulse Rate from SpO2 Sensor 87 Respiratory Rate 18 16 21 Respiratory Effort / Characteristics Non-Labored Spontaneous Respiratory Depth Normal Respiratory Pattern Regular Blood Pressure 144/69 H 122/105 H Blood Pressure [Left Arm] 122/90 Blood Pressure Mean 94 108 Blood Pressure Mean [Left Arm] 100 Blood Pressure Position Sitting Pulse Oximetry 94 95 95 Oxygen Delivery Method Room Air Room Air Sepsis Recent Fever Within 48 Hours No Sepsis New/Unexplained Change in Mental Status No Sepsis Action Taken by Nursing No Action Required 05/19/19 14:17 05/19/19 14:20 05/19/19 14:30 Temperature Temperature Source Pulse Rate 84 84 89 Pulse Rate [Finger] Pulse Rate from SpO2 Sensor 84 84 89 Respiratory Rate 23 Respiratory Effort / Characteristics Respiratory Depth Respiratory Pattern Blood Pressure Blood Pressure [Left Arm] Blood Pressure Mean Blood Pressure Mean [Left Arm] Blood Pressure Position Pulse Oximetry 94 93 95 Oxygen Delivery Method Sepsis Recent Fever Within 48 Hours Sepsis New/Unexplained Change in Mental Status Sepsis Action Taken by Nursing 05/19/19 14:31 05/19/19 14:40 05/19/19 14:50 Temperature Temperature Source Pulse Rate 92 H 86 82 Pulse Rate [Finger] Pulse Rate from SpO2 Sensor 94 H 86 80 Respiratory Rate 14 13 11 L Respiratory Effort / Characteristics Respiratory Depth Respiratory Pattern Blood Pressure 128/93 Blood Pressure [Left Arm] Blood Pressure Mean 101 Blood Pressure Mean [Left Arm] Blood Pressure Position Pulse Oximetry 96 95 92 Oxygen Delivery Method Sepsis Recent Fever Within 48 Hours Sepsis New/Unexplained Change in Mental Status Sepsis Action Taken by Nursing 05/19/19 15:00 05/19/19 15:01 05/19/19 15:10 Temperature Temperature Source Pulse Rate 80 85 87 Pulse Rate [Finger] Pulse Rate from SpO2 Sensor 79 81 82 Respiratory Rate 24 19 27 H Respiratory Effort / Characteristics Respiratory Depth Respiratory Pattern Blood Pressure 156/100 H Blood Pressure [Left Arm] Blood Pressure Mean 117 Blood Pressure Mean [Left Arm] Blood Pressure Position Pulse Oximetry 91 91 93 Oxygen Delivery Method Sepsis Recent Fever Within 48 Hours Sepsis New/Unexplained Change in Mental Status Sepsis Action Taken by Nursing 05/19/19 15:20 05/19/19 15:30 05/19/19 15:31 Temperature Temperature Source Pulse Rate 81 79 74 Pulse Rate [Finger] Pulse Rate from SpO2 Sensor 82 79 Respiratory Rate 16 13 14 Respiratory Effort / Characteristics Respiratory Depth Respiratory Pattern Blood Pressure 140/90 Blood Pressure [Left Arm] Blood Pressure Mean 97 Blood Pressure Mean [Left Arm] Blood Pressure Position Pulse Oximetry 94 94 Oxygen Delivery Method Sepsis Recent Fever Within 48 Hours Sepsis New/Unexplained Change in Mental Status Sepsis Action Taken by Nursing 05/19/19 15:32 05/19/19 15:40 Temperature Temperature Source Pulse Rate 74 Pulse Rate [Finger] 73 Pulse Rate from SpO2 Sensor Respiratory Rate 18 20 Respiratory Effort / Characteristics Respiratory Depth Respiratory Pattern Blood Pressure Blood Pressure [Left Arm] 140/90 Blood Pressure Mean Blood Pressure Mean [Left Arm] 106 Blood Pressure Position Pulse Oximetry 95 Oxygen Delivery Method Room Air Sepsis Recent Fever Within 48 Hours Sepsis New/Unexplained Change in Mental Status Sepsis Action Taken by Nursing GENERAL: Patient is in mild distress and anxious appearing, well nourished, non-toxic. EYE EXAM: Normal conjunctiva. PERRL, no anisocoria and EOM's grossly intact w/o pain. OROPHARYNX: Dry mucous membranes. Grossly normal dentition. NECK: Supple, no nuchal rigidity, no adenopathy, non-tender. No signs of meningismus. LUNGS: Clear to auscultation. Normal chest wall mechanics. HEART: NSR, no MRG. ABDOMEN: Abdomen soft, mild abdominal pain, non-peritonitic, normo-active bowel sounds, no masses, no rebound or guarding. BACK: No CVA TTP. SKIN: No rashes and no bruising. UPPER EXTREMITIES: Upper extremities are grossly normal. Patient is tremulous. LOWER EXTREMITIES: No pitting edema. No calf pain. NEURO EXAM: A&O x3, cranial nerves II-XII grossly intact, normal speech, moves all 4 extremities on command w/o issue. Course Course 1402: The patient was evaluated in room A10 and a complete history and physical were performed. 1524: I reevaluated the patient. She is resting comfortably. I discussed my recommendation she remain in the hospital for further evaluation and management and she is agreeable with the plan. 1531: I discussed the patients case with Dr. Bueno, [facility]. The patient will be further evaluated. Administered Medications Discontinued Medications Acetaminophen (Tylenol) 1,000 mg PO NOW STA Stop: 05/19/19 14:00 Last Admin: 05/19/19 14:40 Dose: 1,000 mg Documented by: [id number] Calcium Carbonate (Tums) 1,500 mg PO NOW STA Stop: 05/19/19 15:23 Last Admin: 05/19/19 15:29 Dose: 1,500 mg Documented by: [id number] Sodium Chloride (Nss 1000ml) 1,000 mls @ 999 mls/hr IV .Q1H1M SIGRID Stop: 05/19/19 15:00 Last Infusion: 05/19/19 15:42 Dose: 0 mls/hr Documented by: [id number] Admin: 05/19/19 14:40 Dose: 999 mls/hr Documented by: [id number] Lorazepam (Ativan) 1 mg in 2 mls @ 2 mls/min IV NOW STA Stop: 05/19/19 14:08 Last Admin: 05/19/19 14:40 Dose: 2 mls/min Documented by: [id number] Potassium Chloride (Klor-Con M20) 40 meq PO NOW STA Stop: 05/19/19 15:23 Last Admin: 05/19/19 15:28 Dose: 40 meq Documented by: [id number] Medical Decision Making Differential Diagnosis Differential diagnoses includes but is not limited to gastritis, peptic ulcer di sease, GERD, gallbladder disease, pancreatitis, small bowel obstruction, acute coronary syndrome, pericarditis, ischemic bowel, irritable bowel disease, irritable bowel syndrome, appendicitis, diverticulitis, malignancy, hernia, urinary tract infection, torsion, perforation, trauma, infectious. Medical Records Attestation: I reviewed the patient's medical records. Home Medications Current Medication List: was personally reviewed by me Laboratory Data Attestation: I reviewed the patient's lab results. Result diagrams: 05/19/19 14:19 05/19/19 14: Lab Results 05/19/19 05/19/19 05/19/19 Range/Units 14:15 14:19 14:19 WBC 13.37 H (4.8-10.8) K/uL RBC 5.46 H (4.2-5.4) M/uL Hgb 16.9 H (12.0-16.0) g/dL Hct 48.0 H (37-47) % MCV 87.9 (80-100) fL MCH 31.0 (25-34) pg MCHC 35.2 (32-36) g/dL RDW Std Deviation 46.9 H (36.4-46.3) fL RDW Coeff of Christ 14.5 (11.5-14.5) % Plt Count 378 (130-400) K/uL MPV 9.4 (7.4-10.4) fL Immature Gran % (Auto) 0.5 % Neut % (Auto) 75.2 % Lymph % (Auto) 15.9 % Norman % (Auto) 7.6 % Eos % (Auto) 0.4 % Baso % (Auto) 0.4 % Immature Gran # (Auto) 0.07 H (0.00-0.02) K/uL Neut # (Auto) 10.07 H (1.4-6.5) K/uL Lymph # (Auto) 2.12 (1.2-3.4) K/uL Norman # (Auto) 1.01 H (0.11-0.59) K/uL Eos # (Auto) 0.05 (0-0.5) K/uL Baso # (Auto) 0.05 (0-0.2) K/uL PT 13.0 H (9.0-12.0) Seconds INR 1.3 H (0.9-1.1) Sodium (136-145) mmol/L Potassium (3.5-5.1) mmol/L Chloride (98-107) mmol/L Carbon Dioxide (21-32) mmol/L Anion Gap (3-11) BUN (7-18) mg/dl Creatinine (0.6-1.2) mg/dl Est Cr Clr Drug Dosing Est GFR ( Amer) Est GFR (Non-Af Amer) BUN/Creatinine Ratio (10-20) Glucose (70-99) mg/dl Calcium (8.5-10.1) mg/dl Phosphorus (2.5-4.9) mg/dl Magnesium (1.8-2.4) mg/dl Total Bilirubin (0.2-1) mg/dl AST (15-37) U/L ALT (12-78) U/L Alkaline Phosphatase (45-117) U/L Troponin I (0-0.045) ng/ml Total Protein (6.4-8.2) gm/dl Albumin (3.4-5.0) gm/dl Globulin (2.5-4.0) gm/dl Albumin/Globulin Ratio (0.9-2) TSH (0.300-4.500) uIu/ml Influenza Type A (PCR) Neg for Influ A (Neg) Influenza Type B (PCR) Neg for Influ B (Neg) 05/19/19 Range/Units 14:19 WBC (4.8-10.8) K/uL RBC (4.2-5.4) M/uL Hgb (12.0-16.0) g/dL Hct (37-47) % MCV (80-100) fL MCH (25-34) pg MCHC (32-36) g/dL RDW Std Deviation (36.4-46.3) fL RDW Coeff of Christ (11.5-14.5) % Plt Count (130-400) K/uL MPV (7.4-10.4) fL Immature Gran % (Auto) % Neut % (Auto) % Lymph % (Auto) % Norman % (Auto) % Eos % (Auto) % Baso % (Auto) % Immature Gran # (Auto) (0.00-0.02) K/uL Neut # (Auto) (1.4-6.5) K/uL Lymph # (Auto) (1.2-3.4) K/uL Norman # (Auto) (0.11-0.59) K/uL Eos # (Auto) (0-0.5) K/uL Baso # (Auto) (0-0.2) K/uL PT (9.0-12.0) Seconds INR (0.9-1.1) Sodium 142 (136-145) mmol/L Potassium 3.0 L (3.5-5.1) mmol/L Chloride 105 (98-107) mmol/L Carbon Dioxide 22 (21-32) mmol/L Anion Gap 15.0 H (3-11) BUN 19 H (7-18) mg/dl Creatinine 1.67 H (0.6-1.2) mg/dl Est Cr Clr Drug Dosing Not Reportable Est GFR ( Amer) 36.6 Est GFR (Non-Af Amer) 31.6 BUN/Creatinine Ratio 11.5 (10-20) Glucose 120 H (70-99) mg/dl Calcium 7.4 L (8.5-10.1) mg/dl Phosphorus 3.2 (2.5-4.9) mg/dl Magnesium 0.4 L* (1.8-2.4) mg/dl Total Bilirubin 0.5 (0.2-1) mg/dl AST 36 (15-37) U/L ALT 45 (12-78) U/L Alkaline Phosphatase 117 (45-117) U/L Troponin I < 0.015 (0-0.045) ng/ml Total Protein 8.3 H (6.4-8.2) gm/dl Albumin 3.6 (3.4-5.0) gm/dl Globulin 4.7 H (2.5-4.0) gm/dl Albumin/Globulin Ratio 0.8 L (0.9-2) TSH 0.879 (0.300-4.500) uIu/ml Influenza Type A (PCR) (Neg) Influenza Type B (PCR) (Neg) Imaging Data Radiologist's Impression: Radiology results as stated below per my review and the radiologist's interpretation: SINGLE VIEW CHEST CLINICAL HISTORY: Generalized weakness. FINDINGS: An AP, portable, upright chest radiograph is compared to study dated 10/09/2016 and correlated with chest CT dated 10/22/2018. The examination is degraded by portable technique and patient rotation. The heart is enlarged noting atherosclerotic calcification of the thoracic aorta. Emphysema and chronic interstitial thickening are similar to previous. There is mild bibasilar scarring/atelectasis. No airspace consolidation or pleural effusion is identified. No pneumothorax is seen. The skeletal structures are osteopenic. The bony thorax is grossly intact. IMPRESSION: Cardiomegaly and emphysema with no active disease in the chest. ACT 112: Negative or not required by law. Electronically signed by: Alen Nice M.D. 05/19/2019 2:51 PM ECG Data Attestation: I personally reviewed and interpreted this ECG as follows: Indication: + weakness Rate (beats per minute): 88 Rhythm: + sinus rhythm ECG Intervals/blocks: + Right Bundle branch block and + Normal OK ECG ST segments: + T-wave inversions (Anterior) ECG Findings: + Other (Wide QRS) Comparison ECG Date: from (10/09/2016) Change: the following changes noted (TWI is more pronounced in V3, otherwise EKG is unchanged) Blood Pressure Blood Pressure Findings: Elevated blood pressure Blood Pressure Disposition: further management by hospitalist MDM Narrative The patient is a 64 year old white female w/ PMHx of anxiety, CKD, COPD, HTN and previous TIA who presents to the ED w/ CC of an illness beginning approximately 1 month ago. Patient was seen in eval at the bedside. The patient is having some persistent loose stools. The patient was noted to be tremulous in mild distress upon initial presentation. Patient has been ongoing for several weeks. The patient had a bladder completed which was concerning for some very mild ASHA, but significant hypomagnesemia. Patient also did have hypocalcemia and hypokalemia. These were ordered for replacement. I did inform the patient of these findings. The patient does appear improved. The patient does relate a stay in the hospital for continued replacement. I did speak the on-call hospitalist. They will further evaluate and treat the patient. The patient does not have any significant EKG changes or arrhythmia noted. Patient was admitted to the medicine service. Impression & Plan Dehydration, Hypomagnesemia, Hypokalemia, Hypocalcemia, Diarrhea Discharge Plan Visit Data Chief Complaint: Illness Stated Complaint: DIZZY, LIGHTHEADED, SOB ED Provider: Min Kaiser Discharge Problem: Dehydration, Hypomagnesemia, Hypokalemia, Hypocalcemia, Diarrhea Patient Disposition: Being Evaluated by Hospitalist Discharge Instructions Interventions: ED Discharge Assessment Last Done: 05/19/19 17:18 The linibe's documentation has been prepared under my direction and personally reviewed by me in its entirety. I confirm that the note above accurately reflects all work, treatment, procedures, and medical decision making performed by me.
[2019-05-19] MEDS: LACTATED RINGER'S 1,000 ML IV SCH (17:51)
[2019-05-19] MEDS: MAGNESIUM SULFATE / D5W 1 GM/100 ML BAG IV SCH ×2 (18:03→19:07)
[2019-05-19 18:17] LABS: Appearance Urine Cloudy (Clear); Bacteria Urine Automated 4+ (Negative); Bilirubin Urine Negative (Negative); Blood Urine Negative (Negative); Color Urine Dark Yellow; Glucose Urine UA Negative (Negative); Ketones Urine Negative (Negative); Leukocyte Esterase Urine Trace (Negative); Nitrite Urine Positive (Negative); Protein Urine 2+ (Negative); Specific Gravity Urine 1.019 (1.000-1.030); Urobilinogen Urine Negative (Negative); WBC Urine Automated >30 /hpf (0-5)
[2019-05-19] MEDS: NICOTINE 21 MG/24 HR TDSY TD SCH (18:56)
[2019-05-19] MEDS: PATIENT'S HEIGHT AND/OR WEIGHT NEEDED SCH ×3 (19:07→22:41)
[2019-05-19] MEDS: VANCOMYCIN HCL 250 MG/5 ML SOLN PO SCH ×2 (19:07→23:28)
[2019-05-19] MEDS: RASPBERRY SYRUP 5 ML UDP PO SCH ×2 (19:08→23:28)
[2019-05-19 20:34] LABS: BUN Creatinine Ratio 11.9 (10-20); Creatinine Clr Calc Pharmacy 44.8 ml/min; Est GFR (Non-African American) 34.5; Magnesium 1.2 mg/dl (1.8-2.4); Potassium 3.4 mmol/L (3.5-5.1)
[2019-05-19] MEDS: BusPIRone 15 MG TAB PO SCH (21:14)
[2019-05-19] MEDS: SIMVASTATIN 20 MG TAB PO SCH (21:14)
[2019-05-19] MEDS: levETIRAcetam 500 MG TAB PO SCH (21:14)
--- NOTE | 2019-05-19 22:30 | Electrocardiogram Report ---
Test Reason : Blood Pressure : / mmHG Vent. Rate : 088 BPM Atrial Rate : 088 BPM P-R Int : 134 ms QRS Dur : 138 ms QT Int : 396 ms P-R-T Axes : 060 -05 039 degrees QTc Int : 479 ms Sinus rhythm with Premature supraventricular complexes Right bundle branch block Abnormal ECG When compared with ECG of 09-OCT-2016 19:27, Premature supraventricular complexes are now Present Confirmed by Cheko Crandall ([id number]) on 05/19/2019 10:30:03 PM Referred By: REFERRED SELF Confirmed By:Cheko Crandall
[2019-05-19] MEDS ORDERED: Nursing to Pharmacy Communication ONE (23:19)
[2019-05-20] MEDS: LACTATED RINGER'S 1,000 ML IV SCH ×2 (01:00→10:51)
[2019-05-20] MEDS: VANCOMYCIN HCL 250 MG/5 ML SOLN PO SCH ×3 (05:39→17:51)
[2019-05-20] MEDS: RASPBERRY SYRUP 5 ML UDP PO SCH ×3 (05:39→17:51)
[2019-05-20 06:12] LABS: Hemoglobin 14.6 g/dL (12.0-16.0); Mean Corpuscular Hemoglobin 29.9 pg (25-34); Mean Corpuscular Volume 88.1 fL (80-100); Mean Platelet Volume 9.2 fL (7.4-10.4); Platelet Count 292 K/uL (130-400); RDW Coefficient of Variation 14.5 % (11.5-14.5); Red Blood Count 4.88 M/uL (4.2-5.4); White Blood Count 12.73 K/uL (4.8-10.8)
[2019-05-20 06:54] LABS: Albumin Globulin Ratio 0.8 (0.9-2); BUN Creatinine Ratio 13.2 (10-20); Bilirubin,Total 0.4 mg/dl (0.2-1); Calcium 6.9 mg/dl (8.5-10.1); Creatinine Clr Calc Pharmacy 53.4 ml/min; Est GFR (African American) 49.5; Est GFR (Non-African American) 42.7; Globulin 3.6 gm/dl (2.5-4.0); Phosphorus 3.1 mg/dl (2.5-4.9); Potassium 3.4 mmol/L (3.5-5.1); Total Protein 6.6 gm/dl (6.4-8.2)
[2019-05-20 07:00] LABS: Estimated Average Glucose 123 mg/dl; Hemoglobin A1C 5.9 % (4.5-5.6)
[2019-05-20] MEDS: levETIRAcetam 500 MG TAB PO SCH ×2 (07:56→20:39)
[2019-05-20] MEDS: ASPIRIN 81 MG ECTAB PO SCH (07:56)
[2019-05-20] MEDS: BusPIRone 15 MG TAB PO SCH ×2 (07:56→20:39)
[2019-05-20] MEDS: POTASSIUM CHLORIDE 20 MEQ TABCR PO SCH ×2 (07:56→17:52)
[2019-05-20] MEDS: CLOPIDOGREL BISULFATE 75 MG TAB PO SCH (07:57)
[2019-05-20] MEDS: PARoxetine HCl 20 MG TAB PO SCH (07:57)
[2019-05-20] MEDS: CHOLECALCIFEROL 1,000 UNITS 25 MCG TAB PO SCH (07:57)
[2019-05-20] MEDS: PANTOprazole 40 MG TAB PO SCH (07:57)
[2019-05-20] MEDS: LORazepam 0.5 MG TAB PO PRN (10:41)
--- NOTE | 2019-05-20 10:52 | Gastrointestinal Consultation ---
Date of Consultation May 20, 2019 Assessment & Plan (1) Diarrhea: Diarrhea is likely related to having previously undergone Ed[place] pouch procedure. C-diff is negative. Celiac is also considered. Likely, the urine that should be draining through the ostomy is being diverted into the colon. Urine may be moving in a back and forth motion within the GI tract then back to the ostomy, causing the e.coli UTI. Will check tTG, IGA. Will consult urology for opinion regarding the path of the urine post Edmunds pouch surgery - could the Ileocecal valve be malfunctioning causing urine to drain through the large colon instead of through the urostomy and is a urological procedure recommended. At this time, would not repeat colonoscopy and would not recommend EGD. Her epigastric pain can be explained by having urine in the large colon as it can be irritating. No GI contraindication to a regular consistency diet. Present on Admission?: Yes Supervising Physician Co-Signing Physician Notes I have personally seen and examined the patient with Tera Reveles. Her note reflects my exam and findings. I agree with her impression and plan. Patient has noticed a decrease in her urostomy output as well as an "unusual smell" to her urine. I am concerned that she may be spilling urine into her GI tract which would cause diarrhea. Recent benign colonoscopy. I would ask urology to see patient to see if the pouch needs to be evaluated. As far as the diarrhea is concerned, this may be the result of losing a portion of ileum, ileocecal valve, and right colon. This could also be bile salt malabsorption. Consider trial of colestipol. López Roberts M.D. History of Present Illness Reason for Consultation: Chronic Diarrhea Requesting Physician: Shanda Kerr Attending Physician: Sergey Reveles, History of Present Illness Ms. Renata Gordon is a 64 yr old female pt of Dr. Hackett with a hx of anxiety, CKD, COPD, HTN and previous TIA. She presented to the ED yesterday for diarrhea, weakness. GI is consulted for chronic diarrhea. She is known to our GI group as she underwent colonoscopy in 2013, 2014 and 2016 for chronic diarrhea since undergoing "Edmunds pouch" bladder surgery for bladder cancer in 2013. Findings in 2013 and 2014 with mild diverticulosis, no other abnormalities. Findings in 2017 with mild congestion and redness of the rectosigmoid colon and internal hemorrhoids, otherwise normal. Records also show that she underwent CT abd/pelvis w and w/o IV contrast on 04/30/19 with fatty liver and with mild inflammatory stranding of the LLQ mesentery and possible mild non specific enteritis but no specific bowel abnormalities. Urine cx on arrival with E.Coli. She is seen and examined with Dr. Roberts. She routinely takes 2 Imodium 3 x/day, for years. She tells us that her diarrhea changed from loose brown stool a month ago to yellow liquid BMs, that it is uncontrollable and that, around the same time, her urine became foul smelling. In addition to the diarrhea, she has epigastric pressure/aching discomfort. No nausea/vomiting. No unexplained weight loss. Allergies Allergy/AdvReac Type Severity Reaction Status Date / Time No Known Drug Allergies Allergy Unknown NONE Verified 05/19/19 15:09 Home Medications Home Medications Medication Instructions Recorded Confirmed Type aspirin 81 mg tablet,delayed 81 mg PO DAILY tab 10/24/18 05/19/19 History release hydrochlorothiazide 12.5 mg capsule 12.5 mg PO DAILY #90 cap 10/24/18 05/19/19 Rx levetiracetam 500 mg tablet 500 mg PO BID #60 tab 10/24/18 05/19/19 Rx omeprazole 20 mg capsule,delayed 20 mg PO DAILY #30 cap 10/24/18 05/19/19 Rx release potassium chloride 20 mEq 40 meq PO BID tab 10/24/18 05/19/19 History tablet,extended release clopidogrel 75 mg tablet 75 mg PO DAILY #90 tab 11/30/18 05/19/19 Rx simvastatin 20 mg tablet 20 mg PO QPM #90 tab 12/11/18 05/19/19 Rx buspirone 15 mg tablet 15 mg PO BID #180 tab 03/27/19 05/19/19 Rx cholecalciferol (vitamin D3) 1,000 unit PO DAILY 05/19/19 05/19/19 History [Vitamin D3] paroxetine HCl 20 mg PO DAILY 05/19/19 05/19/19 History Patient History Surgical History H/O cataract extraction H/O hernia repair H/O: hysterectomy History of cystoscopy BIOPSY, TRANSURETHRAL RESECTION OF BLADDER TUMOR [facility] 02/27/13 History of incisional hernia repair WITH IMPLANTATION OF MESH ONSET: [id number] OPEN REPAIR MULTIPLE FENESTRATION INCISIONAL HERNIA WITH 15 CM ONLAY MARLEX History of salpingo-oophorectomy PELVIC ABDOMINAL EX LAP, PERITONEAL WASH LAVAGE FOR CYTOLOGY, ADHESIOLYSIS, LEFT SALPINA-OOPHORECTOMY, OMENTECTOMY 10/24/12 History of total knee arthroplasty L knee Hx of colonoscopy NORMAL BIOPSY, DIVERTICULOSIS, REPEAT 1YR/ [facility] 01/01/15 Hx of total cystectomy "with [place] pouch" 04/25/13 S/P arthroscopic partial medial meniscectomy ONSET: NOV 2014 PARTIAL MEDIAL MENISCECTOMY, PARTIAL LATERAL MENISCETOMY, CHONDROPLASTY. S/P left knee arthroscopy With partial medial meniscectomy, partial lateral meniscectomy, November 2014 Family History Mother COPD (chronic obstructive pulmonary disease) Myocardial infarction Sister Neurological disorder Breast cancer Unknown Stroke Hypertension Father Myocardial infarction Social History Preferred Language: [place] Communication Ability: Effective Visual Impairment: No Limitations Hearing Ability: Normal Beliefs That Will Affect Care: None marital status: Current Living Situation: Spouse current occupational status: retired Other Information That Helps Us Care for You: No Feels Safe at Home: Yes Safety Concerns: Feels Safe At This Time Smoking Status: Current every day smoker Tobacco Type: cigarettes ; Age Started Using Tobacco: 16 ; packs per day: 1.5 ; Cigarettes Per Day: 30 ; Second Hand Exposure: No ; Hx Alcohol Use: No Hx Substance Use: No caffeine: No Physical Activity Frequency: 1-2 Times per Week Seatbelt Use: always Review of Systems Review of Systems: ROS: Gen: Denies weakness, fevers, weight loss Eyes: No eye redness, or pain, no recent vision changes Resp: No SOB, no cough Cardio: No palpitations/irregular beats, no chest pain GI: See HPI : + foul smelling urine, denies pain on urination Skin: No jaundice, itching or new rashes Physical Exam Constitutional: WD/WN, vitals as above + obese Eyes: PERRL, conjunctivae normal, anicteric sclerae ENMT: external ear and nose normal, oropharynx normal Neck: trachea midline, no thyromegaly Respiratory: normal respiratory effort, lungs clear to auscultation Cardiovascular: RRR, no murmur, no edema Gastrointestinal (Abdomen): Inspection/Auscultation: abdomen not distended Percussion/Palpation: + abdomen tender (mild, epigastric tenderness) and abdomen soft Urostomy draining a cloudy, somewhat dark yellow urine. Musculoskeletal: no cyanosis or clubbing, extremities motor strength 5/5 Skin: no rashes, warm and dry Neurologic: PERRL, EOMI, accommodation nl, no face palsy, no dysarthria Psychiatric: A+Ox3, euthymic affect Lymphatic: no cervical or axillary lymphadenopathy Results & Data Vital Signs (Past 12 Hours) Vital Signs Temp Pulse Resp BP Pulse Ox 05/20/19 07:39 36.3 C L 73 16 124/70 95 Laboratory Results WBC 13, Hb 16, Hct 48, platelet 378, Na 142, K 3.0, BUN 19, Cr 1.67. Diagnostic Findings CT abd/pelvis w and w/o IV contrast in Apr 2019: 1. Adrenal hyperplasia, left greater than right with bilateral adrenal adenomata. Findings appear unchanged from the 2013 exam. 2. Extensive postoperative changes of the abdomen and pelvis as above. 3. Mild inflammatory stranding and trace free fluid of the left lower quadrant mesentery adjacent to nondilated small bowel loops may be on a postsurgical basis or reflect a mild nonspecific enteritis. 4. Multiple bilateral renal cysts with an indeterminate partially exophytic 8 mm lesion of the inferior pole left kidney demonstrating equivocal enhancement. A follow-up CT in 5 months is recommended to further evaluate. 6. Hepatic steatosis. 7. Additional findings as above.
[2019-05-20] MEDS ORDERED: POTASSIUM CHLORIDE 20 MEQ TABCR PO STA (12:24)
[2019-05-20] MEDS: MAGNESIUM SULFATE / D5W 1 GM/100 ML BAG IV SCH ×2 (12:47→13:51)
[2019-05-20] MEDS ORDERED: NICOTINE 14 MG/24 HR PATCH TD SCH (13:15)
--- NOTE | 2019-05-20 14:21 | Hospitalist Progress Note ---
Date of Service May 20, 2019 Assessment & Plan (1) Diarrhea: - Chronic issue - recently worsened over past month; no H/O or FMHx of inflammatory bowel issues -- States she started with an URI and recovered from that but then worsening diarrhea - Normally uses Imodium to control diarrhea; likely can resume this; consideration for trial of Colestipol - H/O C. diff requiring prolonged treatment; c. diff is negative on this check - Holding additional fluids at this time due to swelling and malfunctioning IV lines and will monitor - AM labs to further assess labs; checking for celiac - hypomagnesemia/hypocalcemia/hypokalemia - will replete as necessary - GI and Urology following - question possibility of urinary system/GI system connection not suspected at this time per evals -- Patient was just recently at her [place] urologists office prior to her symptoms starting and they had no concerns and will F/U in 1 year -- Possibility of short gut syndrome given extensive urinary surgery (2) Dehydration: - Secondary to large GI volume losses as above - Holding additional fluids - pending degree of GI losses she may benefit from periodic IVF? (3) Vitamin D deficiency: - Continue supplementation (4) Seizure disorder: - No recent seizure-like activity, well controlled with Keppra 500 mg BID (5) Mild obstructive sleep apnea: - Pt continues to smoke, cessation encouraged. Will order a nicotine patch for the patient. (6) Generalized anxiety disorder: - Continue Paxil 20 mg daily, Buspar 15 mg BID - PRN Ativan for acute anxiety/hospital stay (7) HTN (hypertension): - Holding HCTZ for now - may benefit from alternative option given high fluid output however she reports issues with swelling (8) CKD (chronic kidney disease), stage III: - Cr = 1.67, BUN=19 - limited labs but possible mild ASHA but responded to fluids -- Likely pre-renal in setting of GI losses (9) GERD (gastroesophageal reflux disease): - Continue protonix as omeprazole interchange (10) History of total cystectomy: - Hx of [place] pouch creation, follows with surgeon in [place] and was seen just prior to symptoms worsening with no issues reported by her providers - Monitor Cr. and BUN since slightly elevated at time of admit (11) History of TIA (transient ischemic attack): - Hx of such, no residual sx (12) Prediabetes: - A1C =5.9 (13) Morbid obesity: - Diet and exercise to be encouraged upon discharge (14) Arthritis: - Stable (15) DVT prophylaxis: Heparing Dispo: From home, no needs anticipated Subjective Reports ongoing diarrhea and feeling cramping. Discussed her urine results and states she was told "the pouch will always be a dirty place" however she reports her urine is darker and foul smelling and getting more thicker then her normal urine. She reports ongoing epigastric discomfort that she states does feel like reflux but hasn't resolved. C. diff was negative. She reports needing to move her bowel almost instantaneously after eating foods. The diarrhea has liquified to the point it runs out of her. She follows with Dinesh ALLEN who did evaluate her and are requesting Urology input. Patient only follows with provider in [place] Review of Systems Constitutional: + fatigue and + anorexia; no fever and no chills Eyes: no worsening vision Ear, Nose, Mouth, Throat: no nasal obstruction, no sore throat and no dysphagia Respiratory: no cough and no dyspnea Cardiovascular: no chest pain, no palpitations, no lightheadedness and no edema Gastrointestinal: + cramping and + diarrhea/loose stools; no nausea and no vomiting Genitourinary: no dysuria and no flank pain +foul smelling urine; Physical Exam 2 Constitutional: WD/WN, vitals as above On initial examination in the morning she was very anxious appearing however looked much more calm and relaxed in the evening. Eyes: + anicteric sclerae ENMT: Ears: no hearing impairment Neck: trachea midline Respiratory: normal respiratory effort, lungs clear to auscultation Cardiovascular: RRR, no murmur, no edema Gastrointestinal (Abdomen): Inspection/Auscultation: normal bowel sounds Percussion/Palpation: abdomen soft; abdomen nontender Musculoskeletal: Head/Neck/Chest: normocephalic and head atraumatic Skin: no rashes, warm and dry Neurologic: moves all extremities Psychiatric: A+Ox3, euthymic affect Results & Data ([facility]) Vital Signs (Past 12 Hours) Vital Signs Temp Pulse Resp BP Pulse Ox 05/20/19 07:39 36.3 C L 73 16 124/70 95 PG Care Time/CCT Total # of Minutes Spent Total Time Spent with Patient: Total time spent is greater than 50% in coordination of care (as documented) at patient's floor/unit and/or counseling patient: Coding Level of Care Code 49718 Subseq Hosp Care Lvl 3 Diagnoses Diarrhea R19.7 Dehydration E86.0 Vitamin D deficiency E55.9 Seizure disorder G40.909 Mild obstructive sleep apnea G47.33 Generalized anxiety disorder F41.1 HTN (hypertension) I10 CKD (chronic kidney disease), stage III N18.3 GERD (gastroesophageal reflux disease) K21.9 History of total cystectomy Z90.6 History of TIA (transient ischemic attack) Z86.73 Prediabetes R73.03 Morbid obesity E66.01 Arthritis M19.90 DVT prophylaxis Z29.9
[2019-05-20] MEDS ORDERED: DICYCLOMINE HCL 20 MG TAB PO PRN (18:08)
[2019-05-20] MEDS ORDERED: DICYCLOMINE HCL 20 MG TAB PO ONE (18:30)
--- NOTE | 2019-05-20 19:53 | Urology Consultation ---
Date of Consultation May 20, 2019 Assessment & Plan (1) Chronic diarrhea: acute on chronic diarrhea iv fluids and electrolyte replacement have helped her tremendously. i think she should have her electrolyte labs checked regularly until her losses are more controlled. I think she has short gut with excessive GI fluid and electrolyte losses. She lost all her right colon, her ileocecal valve and just under a foot of distal ileum to her urinary reconstruction. I dont know what changed this past month to worsen her symptoms. Her prior baseline for many years after her cystectomy Ana pouch was moderately severe diarrhea managed with immodium several times per day. I dont know what worsened recently. At this time I think her urinary conduit is working well. I do not suspect a fistula to the GI tract based on imaging. Present on Admission?: Yes History of Present Illness Reason for Consultation: diarrhea Requesting Physician: Dr Reveles Attending Physician: Sergey Reveles, DO History of Present Illness I am asked by Dr Sergey Reveles to evaluate and treat patient for UTI and diarrhea. SHe is admitted with weakness. She has had acute on chronic diarrhea leading to dehydration. She has had moderate diarrhea since her radical cystectomy with [place] Pouch urinary conduit in [place] approximately 2013. She managed this diarrhea in past with 6 tabs of immodium per day. In the last one month she has developed severe diarrhea. She has near constant liquid output via anus. She is frequently incontinent of stool and has to wear a depends. She developed weakness and was admitted yesterday. She is improving with iv fluids and electrolyte replacement. She is feeling less weak. There is concern she has a UTI but this urine was collected from the bottom of her ostomy bag so it is not an acceptable specimen. 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 She originally had a classic [place] pouch consisting of the right colon, cecum and distal 8 inches of ilium completely detached form the GI tract and the hepatic flexure of colon anastomosed end to side to the distal ileum for normal bowel continuity. The harvested right colon is opened on its anti-mesentary border and folded and sewn into a pouch to serve as a urine reservoir. The distal ureters are sewn into the medial edge of the pouch. The cut end of ileum is matured as a stoma on the abdominal surface and the length of the distal ileum stapled longitudinally very narrow to allow just enough room for a 14 fr catheter to pass into the reservoir to drain urine. Thus her [place] pouch has no connection to the GI tract. She suffered stenosis of her catheterizable channel and had 2 revisions but then 2 years ago had a final revision where the stenotic catheterizable channel (ileum) was removed and a large opening of the pouch brought up to the abdominal surface as an incontinent stoma draining urine freely into an ostomy bag. On her most recent CTs the pouch looks well drained and there is no suggestion of urine fistula into the GI tract. Allergies Allergy/AdvReac Type Severity Reaction Status Date / Time No Known Drug Allergies Allergy Unknown NONE Verified 05/19/19 15:09 Home Medications Home Medications Medication Instructions Recorded Confirmed Type aspirin 81 mg tablet,delayed 81 mg PO DAILY tab 10/24/18 05/19/19 History release hydrochlorothiazide 12.5 mg capsule 12.5 mg PO DAILY #90 cap 10/24/18 05/19/19 Rx levetiracetam 500 mg tablet 500 mg PO BID #60 tab 10/24/18 05/19/19 Rx omeprazole 20 mg capsule,delayed 20 mg PO DAILY #30 cap 10/24/18 05/19/19 Rx release potassium chloride 20 mEq 40 meq PO BID tab 10/24/18 05/19/19 History tablet,extended release clopidogrel 75 mg tablet 75 mg PO DAILY #90 tab 11/30/18 05/19/19 Rx simvastatin 20 mg tablet 20 mg PO QPM #90 tab 12/11/18 05/19/19 Rx buspirone 15 mg tablet 15 mg PO BID #180 tab 03/27/19 05/19/19 Rx cholecalciferol (vitamin D3) 1,000 unit PO DAILY 05/19/19 05/19/19 History [Vitamin D3] paroxetine HCl 20 mg PO DAILY 05/19/19 05/19/19 History Patient History Surgical History H/O cataract extraction H/O hernia repair H/O: hysterectomy History of cystoscopy BIOPSY, TRANSURETHRAL RESECTION OF BLADDER TUMOR [facility] 02/27/13 History of incisional hernia repair WITH IMPLANTATION OF MESH ONSET: [id number] OPEN REPAIR MULTIPLE FENESTRATION INCISIONAL HERNIA WITH 15 CM ONLAY MARLEX History of salpingo-oophorectomy PELVIC ABDOMINAL EX LAP, PERITONEAL WASH LAVAGE FOR CYTOLOGY, ADHESIOLYSIS, LEFT SALPINA-OOPHORECTOMY, OMENTECTOMY 10/24/12 History of total knee arthroplasty L knee Hx of colonoscopy NORMAL BIOPSY, DIVERTICULOSIS, REPEAT 1YR/ [facility] 01/01/15 Hx of total cystectomy "with ana pouch" 04/25/13 S/P arthroscopic partial medial meniscectomy ONSET: NOV 2014 PARTIAL MEDIAL MENISCECTOMY, PARTIAL LATERAL MENISCETOMY, CHONDROPLASTY. S/P left knee arthroscopy With partial medial meniscectomy, partial lateral meniscectomy, November 2014 Family History Mother COPD (chronic obstructive pulmonary disease) Myocardial infarction Sister Neurological disorder Breast cancer Unknown Stroke Hypertension Father Myocardial infarction Social History Preferred Language: [place] Communication Ability: Effective Visual Impairment: No Limitations Hearing Ability: Normal Beliefs That Will Affect Care: None marital status: Current Living Situation: Spouse current occupational status: retired Other Information That Helps Us Care for You: No Feels Safe at Home: Yes Safety Concerns: Feels Safe At This Time Smoking Status: Current every day smoker Tobacco Type: cigarettes ; Age Started Using Tobacco: 16 ; packs per day: 1.5 ; Cigarettes Per Day: 30 ; Second Hand Exposure: No ; Hx Alcohol Use: No Hx Substance Use: No caffeine: No Physical Activity Frequency: 1-2 Times per Week Seatbelt Use: always Review of Systems Review of Systems: PMH- HTN, DM, obestiy, tobacco abuse, h/o CVA, muscle invasive bladder cancer, anxiety, h/o c dif Soc- lives with family, has vicente who live locally and are involved in her care, still smoked 1.5 ppd, retired Fam hx- no other bladder cancer Allergy- none ROS- no fever, no chils, ++ weakness, + numbness, no seizure, ++ diarrhea, no chest pain no cough, no rash, no vomiting but often has nausea Physical Exam Constitutional: well nourished, + well hydrated, + obese, healthy appearing, well groomed, cooperative and comfortable Respiratory: normal respiratory effort, lungs clear to auscultation + cough dry cough Cardiovascular: Rate/Rhythm: regular rate and regular rhythm Gastrointestinal (Abdomen): Inspection/Auscultation: abdomen normal to inspection, normal bowel sounds, + significant pannus and + abdominal surgical scar Percussion/Palpation: abdomen nontender and no guarding healthy stoma in midline of abdomen, no visible hernia , light colored urine in good quantities in the urostomy bag. Skin: normal turgor and normal skin elasticity; no rashes Trauma: no contusion Neurologic: fine tremor Psychiatric: A+Ox3, euthymic affect Results & Data Vital Signs (Past 12 Hours) Vital Signs Temp Pulse Resp BP Pulse Ox 05/20/19 15:06 36.7 C 70 18 123/74 92 05/20/19 07:39 36.3 C L 73 16 124/70 95
[2019-05-20] MEDS: NICOTINE 21 MG/24 HR TDSY TD SCH (20:38)
[2019-05-20] MEDS: SIMVASTATIN 20 MG TAB PO SCH (20:39)
[2019-05-21 07:20] LABS: Hematocrit (blood only) 44.1 % (37-47); Hemoglobin 14.6 g/dL (12.0-16.0); Mean Corpuscular Hemoglobin 29.9 pg (25-34); Mean Corpuscular Hgb Conc 33.1 g/dL (32-36); Mean Corpuscular Volume 90.2 fL (80-100); Mean Platelet Volume 9.5 fL (7.4-10.4); Platelet Count 267 K/uL (130-400); RDW Coefficient of Variation 14.7 % (11.5-14.5); RDW Standard Deviation 48.3 fL (36.4-46.3); Red Blood Count 4.89 M/uL (4.2-5.4); White Blood Count 12.87 K/uL (4.8-10.8)
[2019-05-21 07:46] LABS: Albumin Level 3.1 gm/dl (3.4-5.0); BUN Creatinine Ratio 11.8 (10-20); Calcium 7.1 mg/dl (8.5-10.1); Creatinine Clr Calc Pharmacy 50.6 ml/min; Est GFR (African American) 46.5; Est GFR (Non-African American) 40.1; Magnesium 1.2 mg/dl (1.8-2.4); Potassium 3.8 mmol/L (3.5-5.1)
[2019-05-21] MEDS: ASPIRIN 81 MG ECTAB PO SCH (07:46)
[2019-05-21] MEDS: BusPIRone 15 MG TAB PO SCH ×2 (07:46→20:01)
[2019-05-21] MEDS: POTASSIUM CHLORIDE 20 MEQ TABCR PO SCH ×2 (07:46→17:43)
[2019-05-21] MEDS: PANTOprazole 40 MG TAB PO SCH (07:47)
[2019-05-21] MEDS: PARoxetine HCl 20 MG TAB PO SCH (07:47)
[2019-05-21] MEDS: levETIRAcetam 500 MG TAB PO SCH ×2 (07:47→20:03)
[2019-05-21] MEDS: CLOPIDOGREL BISULFATE 75 MG TAB PO SCH (07:47)
[2019-05-21] MEDS: CHOLECALCIFEROL 1,000 UNITS 25 MCG TAB PO SCH (07:47)
[2019-05-21 07:50] LABS: Albumin Globulin Ratio 0.8 (0.9-2); Bilirubin,Total 0.6 mg/dl (0.2-1); Globulin 3.9 gm/dl (2.5-4.0)
[2019-05-21] MEDS: LORazepam 0.5 MG TAB PO PRN (09:03)
[2019-05-21] MEDS: LOPERAMIDE HCL 2 MG CAP PO SCH ×3 (09:48→20:02)
--- NOTE | 2019-05-21 13:04 | Gastroenterology Progress Note ---
Date of Service May 21, 2019 Assessment & Plan (1) Diarrhea: Diarrhea likely secondary to short bowel syndrome as pt has had several feet of small/large intestines removed for the bladder surgery in 2014. Will change fecal stool to 24 hr collection. Imodium 2 tabs ac/hs. After fecal stool collection is complete, will add Questran - will order now to start tomorrow. Needs to be from other medicine. Present on Admission?: Yes Supervising Physician Co-Signing Physician Notes I have personally seen and examined the patient with NEENA [place]. Her note reflects my exam and findings. I agree with her impression and plan. After fecal fat collection, start Colestid. Her symptoms are most likely related to shortened colon and loss of IC valve with some bile salt diarrhea. López Roberts M.D. Subjective Ms. Renata Gordon is a 64 yr old female who was admitted yesterday for diarrhea. Morning: Continuing with liquid yellow diarrhea Q 1-2 hrs. Improvement after taking 2 Imodium before lunch - no BM. C-diff (-). Stool with e-coli. Pt frustrated and tearful about diarrhea and tells me that she is always a very anxious person. Emotional improvement after Imodium seemed to be effective. Review of Systems Review of Systems: ROS: Gen: + anxiety, tearfulness but denies that she would ever do any self harm behaviors. +weakness improved; no fevers, weight loss Eyes: No eye redness, or pain, no recent vision changes Resp: No SOB, no cough Cardio: No palpitations/irregular beats, no chest pain GI: + generalized abdominal discomfort, no nausea/vomiting : Denies pain on urination Skin: No jaundice, itching or new rashes Physical Exam Constitutional: WD/WN, vitals as above Eyes: PERRL, conjunctivae normal, anicteric sclerae ENMT: external ear and nose normal, oropharynx normal Neck: trachea midline, no thyromegaly Respiratory: normal respiratory effort, lungs clear to auscultation Cardiovascular: RRR, no murmur, no edema Gastrointestinal (Abdomen): normal bowel sounds, soft, nontender, no hepatosplenomegaly Skin: no rashes, warm and dry Neurologic: PERRL, EOMI, accommodation nl, no face palsy, no dysarthria Psychiatric: Was tearful this morning; pleasant and cheerful this afternoon. Lymphatic: no cervical or axillary lymphadenopathy Results & Data Vital Signs (Past 12 Hours) Vital Signs Temp Pulse Resp BP Pulse Ox 05/21/19 06:40 36.8 C 74 18 132/84 94 Laboratory Results C-diff (-). Stool with E.coli
--- NOTE | 2019-05-21 13:43 | Hospitalist Progress Note ---
Date of Service May 21, 2019 Assessment & Plan (1) Diarrhea: - Chronic issue - recently worsened over past month; no H/O or FMHx of inflammatory bowel issues -- States she started with an URI and recovered from that but then worsening diarrhea - Normally uses Imodium to control diarrhea; this was resumed; consideration for trial of Colestipol -- States imodium normally works but she can have cyclic exacerbations when it doesn't work enough - H/O C. diff requiring prolonged treatment; c. diff is negative on this check - Holding additional fluids at this time due to swelling and malfunctioning IV lines and will monitor - AM labs to further assess labs; checking for celiac - hypom agnesemia/hypocalcemia/hypokalemia - will replete as necessary -- Be mindful of mag as this can cause diarrhea - will do magnesium daily, umer/vit D, potassium 40 mEq BID (likely can reduce this on D/C) - Fecal fat stool collection - ordered x 72 hours and going to see if 24 hrs will be enough - Trialed Bentyl which helped with cramping - can see if this is something to consider but will hold dosing for now - Could consider Maalox or Carafate to assist with her GERD-like complaints - GI and Urology following - question possibility of urinary system/GI system connection not suspected at this time per evals -- Patient was just recently at her [place] urologists office prior to her symptoms starting and they had no concerns and will F/U in 1 year -- Possibility of short gut syndrome given extensive urinary surgery - discussed with Dr. Elizabeth - will need to try and maximize this (2) Dehydration: - Secondary to large GI volume losses as above - Holding additional fluids - pending degree of GI losses she may benefit from periodic IVF? (3) Vitamin D deficiency: - Continue supplementation (4) Seizure disorder: - No recent seizure-like activity, well controlled with Keppra 500 mg BID (5) Mild obstructive sleep apnea: - Pt continues to smoke, cessation encouraged. continue nicotine patch for the patient. (6) Generalized anxiety disorder: - Continue Paxil 20 mg daily, Buspar 15 mg BID (recently increased approx. one month ago) - Likely some withdrawal from not smoking increasing her anxiety - PRN Ativan for acute anxiety/hospital stay (7) HTN (hypertension): - Holding HCTZ for now - may benefit from alternative option given high fluid output however she reports issues with swelling (8) CKD (chronic kidney disease), stage III: - Cr = 1.67 on admission and now 1.37 - limited labs but possible mild ASHA but responded to fluids; baseline appears to be 1.2-1.35 -- Likely pre-renal in setting of GI losses (9) GERD (gastroesophageal reflux disease): - Continue protonix as omeprazole interchange (10) History of total cystectomy: - Hx of Ana pouch creation, follows with surgeon in [place] and was seen just prior to symptoms worsening with no issues reported by her providers - Monitor Cr. and BUN since slightly elevated at time of admit - UCx with bacteria however sample was taken from ostomy bag and given Ana pouch could likely continue to have dirty urine samples (11) History of TIA (transient ischemic attack): - Hx of such, no residual sx (12) Prediabetes: - A1C =5.9 (13) Morbid obesity: - Diet and exercise to be encouraged upon discharge (14) Arthritis: - Stable (15) DVT prophylaxis: SCDs; Ambulation Dispo: From home, no needs anticipated Subjective Reports no change in her diarrhea today. Cr is improving and around baseline. Resuming Imodium to help with stool amount. Will start some supplements to try and improve these. Discussed with Dr. Elizabeth this AM. No indication for a ntibiotics at this time. Do not suspect tracking between urinary and GI system. Patient does report anxiety today. States she is always a little anxious but more so now. She keeps making reference to being able to see where the employees are smoking. She states she can smoke around 1 1/2 ppd and could be having some withdrawal from that. Review of Systems Constitutional: + fatigue; no fever and no chills Respiratory: no cough and no dyspnea Cardiovascular: no chest pain and no lightheadedness Gastrointestinal: + diarrhea/loose stools; no abdominal pain, no nausea, no vomiting and no cramping Genitourinary: no dysuria +foul smelling urine; Integumentary: no rash Psychiatric: + anxiety Physical Exam Constitutional: WD/WN, vitals as above Eyes: + anicteric sclerae ENMT: Ears: no hearing impairment Neck: trachea midline Respiratory: normal respiratory effort, lungs clear to auscultation Cardiovascular: RRR, no murmur, no edema Gastrointestinal (Abdomen): Inspection/Auscultation: normal bowel sounds Percussion/Palpation: abdomen soft; abdomen nontender Musculoskeletal: Head/Neck/Chest: normocephalic and head atraumatic Skin: no rashes, warm and dry Neurologic: moves all extremities Psychiatric: A+Ox3, euthymic affect Results & Data ([facility]) Vital Signs (Past 12 Hours) Vital Signs Temp Pulse Resp BP Pulse Ox 05/21/19 06:40 36.8 C 74 18 132/84 94 PG Care Time/CCT Total # of Minutes Spent Total Time Spent with Patient: Total time spent is greater than 50% in coor dination of care (as documented) at patient's floor/unit and/or counseling patient: Coding Level of Care Code 04435 Subseq Hosp Care Lvl 3 Diagnoses Diarrhea R19.7 Dehydration E86.0 Vitamin D deficiency E55.9 Seizure disorder G40.909 Mild obstructive sleep apnea G47.33 Generalized anxiety disorder F41.1 HTN (hypertension) I10 CKD (chronic kidney disease), stage III N18.3 GERD (gastroesophageal reflux disease) K21.9 History of total cystectomy Z90.6 History of TIA (transient ischemic attack) Z86.73 Prediabetes R73.03 Morbid obesity E66.01 Arthritis M19.90 DVT prophylaxis Z29.9
[2019-05-21] MEDS: NICOTINE 21 MG/24 HR TDSY TD SCH (19:59)
[2019-05-21] MEDS: CALCIUM 600MG + VIT D 400 IU TAB PO SCH (20:00)
[2019-05-21] MEDS: SIMVASTATIN 20 MG TAB PO SCH (20:02)
[2019-05-22] MEDS: LOPERAMIDE HCL 2 MG CAP PO SCH ×4 (05:40→20:52)
[2019-05-22 07:04] LABS: Hematocrit (blood only) 42.8 % (37-47); Hemoglobin 13.8 g/dL (12.0-16.0); Mean Corpuscular Hemoglobin 29.4 pg (25-34); Mean Corpuscular Hgb Conc 32.2 g/dL (32-36); Mean Corpuscular Volume 91.3 fL (80-100); Mean Platelet Volume 9.9 fL (7.4-10.4); Platelet Count 243 K/uL (130-400); RDW Coefficient of Variation 14.7 % (11.5-14.5); RDW Standard Deviation 49.1 fL (36.4-46.3); Red Blood Count 4.69 M/uL (4.2-5.4); White Blood Count 10.29 K/uL (4.8-10.8)
[2019-05-22 07:25] LABS: Albumin Level 2.7 gm/dl (3.4-5.0); BUN Creatinine Ratio 13.6 (10-20); Calcium 7.5 mg/dl (8.5-10.1); Creatinine Clr Calc Pharmacy 56.4 ml/min; Est GFR (African American) 52.9; Est GFR (Non-African American) 45.7; Magnesium 1.1 mg/dl (1.8-2.4); Potassium 3.8 mmol/L (3.5-5.1)
[2019-05-22 07:28] LABS: Albumin Globulin Ratio 0.7 (0.9-2); Bilirubin,Total 0.3 mg/dl (0.2-1); Globulin 3.6 gm/dl (2.5-4.0); Total Protein 6.3 gm/dl (6.4-8.2)
[2019-05-22] MEDS: PANTOprazole 40 MG TAB PO SCH (08:12)
[2019-05-22] MEDS: PARoxetine HCl 20 MG TAB PO SCH (08:12)
[2019-05-22] MEDS: ASPIRIN 81 MG ECTAB PO SCH (08:12)
[2019-05-22] MEDS: CALCIUM 600MG + VIT D 400 IU TAB PO SCH ×2 (08:12→20:53)
[2019-05-22] MEDS: CLOPIDOGREL BISULFATE 75 MG TAB PO SCH (08:12)
[2019-05-22] MEDS: BusPIRone 15 MG TAB PO SCH ×2 (08:12→20:53)
[2019-05-22] MEDS: levETIRAcetam 500 MG TAB PO SCH ×2 (08:13→20:52)
[2019-05-22] MEDS: POTASSIUM CHLORIDE 20 MEQ TABCR PO SCH ×2 (08:13→16:33)
[2019-05-22] MEDS: MAGNESIUM OXIDE 400 MG TAB PO SCH (08:13)
[2019-05-22] MEDS: CHOLECALCIFEROL 1,000 UNITS 25 MCG TAB PO SCH (08:13)
[2019-05-22] MEDS: MAGNESIUM SULFATE / D5W 1 GM/100 ML BAG IV SCH ×2 (09:20→10:27)
--- NOTE | 2019-05-22 10:30 | Gastroenterology Progress Note ---
Date of Service May 22, 2019 Assessment & Plan (1) Diarrhea: Diarrhea likely secondary to short bowel syndrome as pt has had several feet of small/large intestines removed for the bladder surgery in 2013. Continue: Imodium 2 tabs ac/hs. Add: Questran 4grams BID. Unfortunately, when I changed the 72 hr stool for fecal fat to a 24 hr stool, it appears that the test was cancelled. Will continue to follow. No plans for endoscopy at this time as she has had multiple colonoscopies for the same symptoms w/o significant abnormalities. Supervising Physician Co-Signing Physician Notes Patient was personally seen and examined with NEENA [place]. Her note reflects my exam and findings. I agree with her impression and plan. Adding Questran today. López Roberts M.D. Subjective Ms. Renata Gordon is a 64 yr old female who was admitted 05/19/19 for diarrhea. Though a break w/o any diarrhea after initial dose of Imodium yesterday at noon, diarrhea restarted sometime yesterday evening and persisted every 1-2 hrs all night long. C/o diffuse abdominal cramping associated with defecation but still present all the time. C-diff (-). Stool with e-coli. Pt's anxiety much improved today compared to yesterday. Review of Systems Review of Systems: ROS: Gen: AAO, NAD, sitting up in a chair at the bedside. Eyes: No eye redness, or pain, no recent vision changes Resp: No SOB, no cough Cardio: No palpitations/irregular beats, no chest pain GI: + diarrhea, + generalized abdominal discomfort, no nausea/vomiting : Denies pain on urination Skin: No jaundice, itching or new rashes Physical Exam 2 Constitutional: WD/WN, vitals as above + obese Eyes: PERRL, conjunctivae normal, anicteric sclerae ENMT: external ear and nose normal, oropharynx normal Neck: trachea midline, no thyromegaly Respiratory: normal respiratory effort, lungs clear to auscultation Cardiovascular: RRR, no murmur, no edema Gastrointestinal (Abdomen): normal bowel sounds, soft, nontender, no hepatosplenomegaly Inspection/Auscultation: abdomen not distended Percussion/Palpation: + abdomen tender (mild, epigastric tenderness) and abdomen soft Musculoskeletal: no cyanosis or clubbing, extremities motor strength 5/5 Skin: no rashes, warm and dry Neurologic: PERRL, EOMI, accommodation nl, no face palsy, no dysarthria Psychiatric: A+Ox3, euthymic affect Lymphatic: no cervical or axillary lymphadenopathy Results & Data Vital Signs (Past 12 Hours) Vital Signs Temp Pulse Resp BP Pulse Ox 05/22/19 07:44 36.5 C 62 18 114/72 97
[2019-05-22] MEDS: CHOLESTYRAMINE LIGHT 4 GM PKT PO SCH ×2 (11:22→22:05)
--- NOTE | 2019-05-22 13:23 | Hospitalist Progress Note ---
Date of Service May 22, 2019 Assessment & Plan (1) Diarrhea: - Chronic issue; has had multiple colonoscopies with no significant findings. - Possibly related to short gut syndrome - had several feet of small/large intestines removed during bladder surgery in 2013. - C. diff negative; Stool culture also negative. - Celiac panel and 24 hour fecal fat test pending. - Continue Imodium ac/hs; added Questran 4 gm BID this morning. - Bentyl 20 mg q6hr prn abd pain/cramping. - Continue mag oxide PO but avoid increased dose in setting of diarrhea. - GI and urology following, appreciate input. (2) Dehydration: - Secondary to large GI volume losses as above. - Hold additional fluids, consider prn boluses. (3) Vitamin D deficiency: - Continue Vit D supplementation (4) Seizure disorder: - Continue Keppra 500 mg BID. (5) Generalized anxiety disorder: - Continue Paxil 20 mg daily, Buspar 15 mg BID (recently increased approx. one month ago) - Likely some withdrawal from not smoking increasing her anxiety - Ativan prn. (6) HTN (hypertension): - Holding home HCTZ for now - consider another agent if BP is elevated. (7) CKD (chronic kidney disease), stage III: - Baseline appears to be 1.2-1.35 - Continue to monitor - consider IV fluid boluses prn if indicated. (8) GERD (gastroesophageal reflux disease): - Continue PPI. (9) History of total cystectomy: - Hx of Ana pouch creation, follows with surgeon in [place] and was seen just prior to symptoms worsening with no issues reported by her providers - UCx with bacteria however sample was taken from ostomy bag and given Ana pouch could likely continue to have dirty urine samples (10) History of TIA (transient ischemic attack): - No residual symptoms; continue ASA/Plavix/statin as prescribed. (11) Prediabetes: - A1C 5.9. - Encourage weight loss. (12) Arthritis: - Stable, will monitor. (13) Mild obstructive sleep apnea: - Pt continues to smoke, cessation encouraged. - Continue nicotine patch. (14) Morbid obesity: - BMI 41.5. - Encourage weight loss and heart healthy diet. (15) Hypomagnesemia: - Mag level 1.1 -- ordered Mag sulfate 2 gm IV. Also receiving mag oxide 400 mg PO. - In setting of diarrhea. - Monitor levels daily. (16) DVT prophylaxis: - SCDs; encourage ambulation. Dispo: Med/surg; discharge to home pending improvement in diarrhea. Subjective Pt. has ongoing diarrhea -- 9 episodes overnight. Also c/o crampy abdominal pain. Denies nausea/vomiting, loss of appetite, dysuria. Will start Cholestyramine BID dosing and monitor for improvement. Review of Systems Review of Systems: All systems reviewed & are unremarkable except as noted in HPI & below Constitutional: + fatigue and + weakness; no fever, no chills and no anorexia Respiratory: no cough, no dyspnea and no dyspnea on exertion Cardiovascular: no chest pain, no palpitations and no edema Gastrointestinal: + abdominal pain and + diarrhea/loose stools; no nausea, no vomiting, no constipation, no blood in stools and no melena Genitourinary: no difficulty urinating Musculoskeletal: no back pain and no joint pain Integumentary: no non-healing lesions Physical Exam Physical Exam: General: Resting comfortably HEENT: NC/AT; PERRLA with EOMI; [place] conjunctiva, MMM. No erythema of posterior pharynx Neck: Supple and nontender Cardiac: RRR Lungs: CTA bilaterally Abdomen: Bowel normoactive X 4; Nontender to palpation Extremities: Warm. No edema present Neuro: No focal weakness Skin: No rash Results & Data ([facility]) Vital Signs (Past 12 Hours) Vital Signs Temp Pulse Resp BP Pulse Ox 05/22/19 07:44 36.5 C 62 18 114/72 97 Laboratory Results 05/22/19 05/22/19 05/21/19 Range/Units 06:24 06:24 09:00 WBC 10.29 (4.8-10.8) K/uL RBC 4.69 (4.2-5.4) M/uL Hgb 13.8 (12.0-16.0) g/dL Hct 42.8 (37-47) % MCV 91.3 (80-100) fL MCH 29.4 (25-34) pg MCHC 32.2 (32-36) g/dL RDW Std Deviation 49.1 H (36.4-46.3) fL RDW Coeff of Christ 14.7 H (11.5-14.5) % Plt Count 243 (130-400) K/uL MPV 9.9 (7.4-10.4) fL Sodium 142 (136-145) mmol/L Potassium 3.8 (3.5-5.1) mmol/L Chloride 115 H (98-107) mmol/L Carbon Dioxide 20 L (21-32) mmol/L Anion Gap 6.0 (3-11) BUN 17 (7-18) mg/dl Creatinine 1.23 H (0.6-1.2) mg/dl Est Cr Clr Drug Dosing 56.4 ml/min Est GFR ( Amer) 52.9 Est GFR (Non-Af Amer) 45.7 BUN/Creatinine Ratio 13.6 (10-20) Glucose 105 H (70-99) mg/dl Calcium 7.5 L (8.5-10.1) mg/dl Magnesium 1.1 L (1.8-2.4) mg/dl Total Bilirubin 0.3 (0.2-1) mg/dl AST 16 (15-37) U/L ALT 22 (12-78) U/L Alkaline Phosphatase 93 (45-117) U/L Total Protein 6.3 L (6.4-8.2) gm/dl Albumin 2.7 L (3.4-5.0) gm/dl Globulin 3.6 (2.5-4.0) gm/dl Albumin/Globulin Ratio 0.7 L (0.9-2) Stool Collect Duration Pending Stool Weight Pending Stool Fat, Quant Pending 05/21/19 Range/Units 09:00 WBC (4.8-10.8) K/uL RBC (4.2-5.4) M/uL Hgb (12.0-16.0) g/dL Hct (37-47) % MCV (80-100) fL MCH (25-34) pg MCHC (32-36) g/dL RDW Std Deviation (36.4-46.3) fL RDW Coeff of Christ (11.5-14.5) % Plt Count (130-400) K/uL MPV (7.4-10.4) fL Sodium (136-145) mmol/L Potassium (3.5-5.1) mmol/L Chloride (98-107) mmol/L Carbon Dioxide (21-32) mmol/L Anion Gap (3-11) BUN (7-18) mg/dl Creatinine (0.6-1.2) mg/dl Est Cr Clr Drug Dosing ml/min Est GFR ( Amer) Est GFR (Non-Af Amer) BUN/Creatinine Ratio (10-20) Glucose (70-99) mg/dl Calcium (8.5-10.1) mg/dl Magnesium (1.8-2.4) mg/dl Total Bilirubin (0.2-1) mg/dl AST (15-37) U/L ALT (12-78) U/L Alkaline Phosphatase (45-117) U/L Total Protein (6.4-8.2) gm/dl Albumin (3.4-5.0) gm/dl Globulin (2.5-4.0) gm/dl Albumin/Globulin Ratio (0.9-2) Stool Collect Duration Cancelled Stool Weight Cancelled Stool Fat, Quant Cancelled PG Care Time/CCT Total # of Minutes Spent Total Time Spent with Patient: Total time spent is greater than 50% in coordination of care (as documented) at patient's floor/unit and/or counseling patient: Coding Level of Care Code 75727 Subseq Hosp Care Lvl 3 Diagnoses Diarrhea R19.7 Dehydration E86.0 Vitamin D deficiency E55.9 Seizure disorder G40.909 Generalized anxiety disorder F41.1 HTN (hypertension) I10 CKD (chronic kidney disease), stage III N18.3 GERD (gastroesophageal reflux disease) K21.9 History of total cystectomy Z90.6 History of TIA (transient ischemic attack) Z86.73 Prediabetes R73.03 Arthritis M19.90 Mild obstructive sleep apnea G47.33 Morbid obesity E66.01 Hypomagnesemia E83.42 DVT prophylaxis Z29.9
[2019-05-22] MEDS: NICOTINE 21 MG/24 HR TDSY TD SCH (20:51)
[2019-05-22] MEDS: SIMVASTATIN 20 MG TAB PO SCH (20:53)
[2019-05-23] MEDS: POTASSIUM CHLORIDE 20 MEQ TABCR PO SCH (07:43)
[2019-05-23] MEDS: BusPIRone 15 MG TAB PO SCH ×2 (07:43→21:12)
[2019-05-23] MEDS: LOPERAMIDE HCL 2 MG CAP PO SCH ×4 (07:43→21:13)
[2019-05-23] MEDS: levETIRAcetam 500 MG TAB PO SCH ×2 (07:44→21:13)
[2019-05-23] MEDS: MAGNESIUM OXIDE 400 MG TAB PO SCH (07:44)
[2019-05-23] MEDS: ASPIRIN 81 MG ECTAB PO SCH (07:44)
[2019-05-23] MEDS: CALCIUM 600MG + VIT D 400 IU TAB PO SCH ×2 (07:44→21:12)
[2019-05-23] MEDS: PARoxetine HCl 20 MG TAB PO SCH (07:45)
[2019-05-23] MEDS: PANTOprazole 40 MG TAB PO SCH (07:45)
[2019-05-23] MEDS: CHOLECALCIFEROL 1,000 UNITS 25 MCG TAB PO SCH (07:45)
[2019-05-23] MEDS: CLOPIDOGREL BISULFATE 75 MG TAB PO SCH (07:45)
[2019-05-23 08:03] LABS: BUN Creatinine Ratio 15.7 (10-20); Calcium 8.4 mg/dl (8.5-10.1); Creatinine Clr Calc Pharmacy 65.3 ml/min; Est GFR (African American) 61.9; Est GFR (Non-African American) 53.5; Magnesium 1.5 mg/dl (1.8-2.4); Potassium 4.5 mmol/L (3.5-5.1)
[2019-05-23] MEDS ORDERED: MAGNESIUM SULFATE / D5W 1 GM/100 ML BAG IV ONE (08:30)
[2019-05-23] MEDS: SODIUM BICARBONATE 650 MG TAB PO SCH (09:20)
--- NOTE | 2019-05-23 09:40 | Gastroenterology Progress Note ---
Date of Service May 23, 2019 Assessment & Plan (1) Diarrhea: Diarrhea likely secondary to short bowel syndrome as pt has had several feet of small/large intestines removed for the bladder surgery in 2014. Continue: Imodium 2 tabs ac/hs. Add: one additional dose of Imodium 4mg daily prn. Increase Questran but careful not to take with other medications. Hold anti-diarrheas if any constipation. GI will sign off. Please notify us if new/worsening GI issues. Discussed with pt: no specific OP GI f/u required but pt may call for appt if she would like. She has seen Tamika Churchill in the past. Tamika sees pt at [facility] in [place] monthly. Supervising Physician Co-Signing Physician Notes I have personally seen and examined the patient with NEENA [place]. Her note reflects my exam and findings. I agree with her impression and plan. Increase Questran and continue around the clock imodium. López Roberts M.D. Subjective Ms. Renata Gordon is a 64 yr old female who was admitted 05/19/19 for diarrhea. Improvement in the abdominal cramping and diarrhea with addition of the Questran. Able to sleep through the night last night. Up walking today. Feeling better. Minimal abdominal cramping today. However, this morning 6 liquid BMs from 8:30 to 10:30. C-diff (-). Stool with e-coli but no evidence of pathologic strains. Review of Systems Review of Systems: ROS: Gen: AAO, NAD, sitting up in a chair at the bedside. Eyes: No eye redness, or pain, no recent vision changes Resp: No SOB, no cough Cardio: No palpitations/irregular beats, no chest pain GI: + diarrhea, + generalized abdominal discomfort, no nausea/vomiting : Denies pain on urination Skin: No jaundice, itching or new rashes Physical Exam Constitutional: WD/WN, vitals as above + obese Eyes: PERRL, conjunctivae normal, anicteric sclerae ENMT: external ear and nose normal, oropharynx normal Neck: trachea midline, no thyromegaly Respiratory: normal respiratory effort, lungs clear to auscultation Cardiovascular: RRR, no murmur, no edema Gastrointestinal (Abdomen): normal bowel sounds, soft, nontender, no hepatosplenomegaly Inspection/Auscultation: abdomen not distended Percussion/Palpation: + abdomen tender (mild, epigastric tenderness) and abdomen soft Musculoskeletal: no cyanosis or clubbing, extremities motor strength 5/5 Skin: no rashes, warm and dry Neurologic: PERRL, EOMI, accommodation nl, no face palsy, no dysarthria Psychiatric: A+Ox3, euthymic affect Lymphatic: no cervical or axillary lymphadenopathy Results & Data Vital Signs (Past 12 Hours) Vital Signs Temp Pulse Resp BP BP Pulse Ox 05/23/19 07:23 36.7 C 56 L 18 125/79 96 05/22/19 23:27 36.7 C 57 L 18 109/56 L 94 Laboratory Results K 4.5, Mg 1.5, Na 141.
[2019-05-23] MEDS: CHOLESTYRAMINE LIGHT 4 GM PKT PO SCH ×3 (10:07→21:13)
[2019-05-23] MEDS ORDERED: LOPERAMIDE HCL 2 MG CAP PO PRN (10:30)
--- NOTE | 2019-05-23 14:05 | Hospitalist Progress Note ---
Date of Service May 23, 2019 Assessment & Plan (1) Diarrhea: - Chronic issue; has had multiple colonoscopies with no significant findings. - Possibly related to short gut syndrome - had several feet of small/large intestines removed during bladder surgery in 2013. - C. diff negative; Stool culture also negative. - Celiac panel negative; 24 hour fecal fat test pending. - Continue Imodium ac/hs; added Questran 4 gm BID, will increase dose to TID. - Bentyl 20 mg q6hr prn abd pain/cramping. - Continue mag oxide PO but avoid increased dose in setting of diarrhea. - GI and urology following, appreciate input. (2) Dehydration: - Secondary to large GI volume losses as above. - Hold additional fluids, consider prn boluses. - Start sodium bicarb 650 mg daily in setting of very mild non anion gap metabolic acidosis. (3) Vitamin D deficiency: - Continue Vit D supplementation (4) Seizure disorder: - Continue Keppra 500 mg BID. (5) Generalized anxiety disorder: - Continue Paxil 20 mg daily, Buspar 15 mg BID (recently increased approx. one month ago) - Likely some withdrawal from not smoking increasing her anxiety - Ativan prn. (6) HTN (hypertension): - Hold home HCTZ for now - consider another agent if BP is elevated. (7) CKD (chronic kidney disease), stage III: - Baseline appears to be 1.2-1.35 - Continue to monitor, currently at baseline. (8) GERD (gastroesophageal reflux disease): - Continue PPI. (9) History of total cystectomy: - Hx of Ana pouch creation, follows with surgeon in [place] and was seen just prior to symptoms worsening with no issues reported by her providers - UCx with bacteria however sample was taken from ostomy bag and given [place] pouch could likely continue to have dirty urine samples (10) History of TIA (transient ischemic attack): - No residual symptoms; continue ASA/Plavix/statin as prescribed. (11) Prediabetes: - A1C 5.9. - Encourage weight loss. - She does c/o neuropathy pain in her feet -- is not likely related to diabetes, does not have h/o chemotherapy administration leading to neuropathy. Consider initiation of gabapentin as outpatient. (12) Arthritis: - Stable, will monitor. (13) Mild obstructive sleep apnea: - Pt continues to smoke, cessation encouraged. - Continue nicotine patch. (14) Morbid obesity: - BMI 41.5. - Encourage weight loss and heart healthy diet. (15) Hypomagnesemia: - Mag level 1.5 -- ordered Mag sulfate 1 gm IV. Also receiving mag oxide 400 mg PO. - In setting of diarrhea. - Monitor levels daily. (16) DVT prophylaxis: - SCDs; encourage ambulation. Dispo: Med/surg; discharge to home pending improvement in diarrhea, likely on 05/24/19. Subjective Diarrhea was improving -- last episode was 5 pm last evening. She did have recurrent diarrhea this morning, 6 episodes after 9 am. Will increase Cholestyramine to TID dosing and monitor. She c/o burning pain in her feet - denies h/o neuropathy; most recent A1C was in the pre-diabetic range. Review of Systems Review of Systems: All systems reviewed & are unremarkable except as noted in HPI & below Constitutional: no fever, no chills, no fatigue, no weakness and no anorexia Respiratory: no cough, no dyspnea and no dyspnea on exertion Cardiovascular: no chest pain, no palpitations and no edema Gastrointestinal: + diarrhea/loose stools; no abdominal pain, no nausea, no vomiting and no constipation Genitourinary: no difficulty urinating Musculoskeletal: no back pain and no joint pain Integumentary: no non-healing lesions Physical Exam Physical Exam: General: Resting comfortably HEENT: NC/AT; PERRLA with EOMI; [place] conjunctiva, MMM. No erythema of posterior pharynx Neck: Supple and nontender Cardiac: RRR Lungs: CTA bilaterally Abdomen: Bowel normoactive X 4; Nontender to palpation Extremities: Warm. No edema present Neuro: No focal weakness Skin: No rash Results & Data ([facility]) Vital Signs (Past 12 Hours) Vital Signs Temp Pulse Resp BP Pulse Ox 05/23/19 07:23 36.7 C 56 L 18 125/79 96 Laboratory Results 05/23/19 05/21/19 Range/Units 06:59 07:02 Sodium 141 (136-145) mmol/L Potassium 4.5 D (3.5-5.1) mmol/L Chloride 115 H (98-107) mmol/L Carbon Dioxide 20 L (21-32) mmol/L Anion Gap 6.0 (3-11) BUN 17 (7-18) mg/dl Creatinine 1.08 (0.6-1.2) mg/dl Est Cr Clr Drug Dosing 65.3 ml/min Est GFR ( Amer) 61.9 Est GFR (Non-Af Amer) 53.5 BUN/Creatinine Ratio 15.7 (10-20) Glucose 90 (70-99) mg/dl Calcium 8.4 L (8.5-10.1) mg/dl Magnesium 1.5 L (1.8-2.4) mg/dl Tiss Transglutamin IgA 1 U/mL PG Care Time/CCT Total # of Minutes Spent Total Time Spent with Patient: Total time spent is greater than 50% in coordination of care (as documented) at patient's floor/unit and/or counseling patient: Coding Level of Care Code 87810 Subseq Hosp Care Lvl 3 Diagnoses Diarrhea R19.7 Dehydration E86.0 Vitamin D deficiency E55.9 Seizure disorder G40.909 Generalized anxiety disorder F41.1 HTN (hypertension) I10 CKD (chronic kidney disease), stage III N18.3 GERD (gastroesophageal reflux disease) K21.9 History of total cystectomy Z90.6 History of TIA (transient ischemic attack) Z86.73 Prediabetes R73.03 Arthritis M19.90 Mild obstructive sleep apnea G47.33 Morbid obesity E66.01 Hypomagnesemia E83.42 DVT prophylaxis Z29.9
[2019-05-23] MEDS: NICOTINE 21 MG/24 HR TDSY TD SCH (18:22)
[2019-05-23] MEDS: SIMVASTATIN 20 MG TAB PO SCH (21:14)
[2019-05-24 06:22] LABS: BUN Creatinine Ratio 16.4 (10-20); Calcium 8.5 mg/dl (8.5-10.1); Creatinine Clr Calc Pharmacy 67.2 ml/min; Est GFR (African American) 64.1; Est GFR (Non-African American) 55.3; Magnesium 1.5 mg/dl (1.8-2.4); Potassium 4.9 mmol/L (3.5-5.1)
[2019-05-24] MEDS: CHOLESTYRAMINE LIGHT 4 GM PKT PO SCH ×2 (08:26→13:36)
[2019-05-24] MEDS: ASPIRIN 81 MG ECTAB PO SCH (08:26)
[2019-05-24] MEDS: PARoxetine HCl 20 MG TAB PO SCH (08:26)
[2019-05-24] MEDS: PANTOprazole 40 MG TAB PO SCH (08:26)
[2019-05-24] MEDS: CHOLECALCIFEROL 1,000 UNITS 25 MCG TAB PO SCH (08:26)
[2019-05-24] MEDS: SODIUM BICARBONATE 650 MG TAB PO SCH (08:26)
[2019-05-24] MEDS: levETIRAcetam 500 MG TAB PO SCH (08:26)
[2019-05-24] MEDS: CLOPIDOGREL BISULFATE 75 MG TAB PO SCH (08:26)
[2019-05-24] MEDS: BusPIRone 15 MG TAB PO SCH (08:26)
[2019-05-24] MEDS: CALCIUM 600MG + VIT D 400 IU TAB PO SCH (08:26)
[2019-05-24] MEDS: MAGNESIUM OXIDE 400 MG TAB PO SCH (08:26)
[2019-05-24] MEDS: LOPERAMIDE HCL 2 MG CAP PO SCH ×2 (08:26→12:07)
[2019-05-24] MEDS: MAGNESIUM SULFATE / D5W 1 GM/100 ML BAG IV SCH ×2 (09:08→10:12)
--- NOTE | 2019-05-24 13:44 | Discharge Summary ---
Date of Service May 24, 2019 Admission HPI Per Admitting Provider This is a 64 yo F with PMHx of HTN, HLD, seizure disorder, prediabetes, hx of Zapata pouch creation 6 years ago at [place], COPD, current tobacco use with 1.5 PPD x40 years, CKD stage III, morbid obesity, hx of TIA, BELKIS, Vit D deficiency, anxiety and depression who presents with diarrhea which has been ongoing for approximately 1 month now. Patient notes that it is "yellow liquid just pouring out of her", feels bloated, and was extremely weak, with slight lightheadedness earlier today. She has not been able to do ADLs without difficulty at home recently due to fatigue and weakness. She has been able to take her regularly scheduled medications but reports occasionally feeling dry heaves with them. Her appetite has been very poor for 1 week, with minimal intake. She reports diarrhea has been getting worse in the last week. She admits to having C. difficile approximately 1 year ago which required 3 months for her to get over. She lives at home with her who has not shown any of the same symptoms. Denies sick contacts and recent consumption of raw or undercooked foods. Patient also denies antibiotic use within the past month or prior to onset of diarrhea. Upon presentation to the ER she has significant electrolyte abnormalities including K+ = 3.0, MG = 0.4, CA += 7.4, creatinine = 1.67, BUN = 19, glucose = 120. Admission Exam Per Admitting Provider General: awake, alert, no apparent distress, + morbidly obese, + smells of smoke Head: Normocephalic, atraumatic ENT: PERRL, EOMI, no pharyngeal exudate, mucous membranes moist Chest: + Diminished breath sounds throughout, on room air, no adventitious breath sounds Cardiac: Regular rate and rhythm, no murmur, no JVD, normal peripheral pulses, good capillary refill Abdominal: + Diminished bowel sounds x 4 quadrants, + slightly distended, soft, nontender to palpation, + Ana pouch with yellow urine, no rebound, guarding or tenderness Extremities: Normal inspection, no peripheral edema or erythema, calfs nontender to palpation Psych: Normal mood, slightly anxious after Neuro: AAO x 3, strength intact bilaterally and related 5/5, no motor deficits, speech is clear, no peripheral sensory deficits Principal Diagnosis Diarrhea Discharge Exam General: Resting comfortably HEENT: NC/AT; PERRLA with EOMI; [place] conjunctiva, MMM. No erythema of posterior pharynx Neck: Supple and nontender Cardiac: RRR Lungs: CTA bilaterally Abdomen: Bowel normoactive X 4; Nontender to palpation Extremities: Warm. No edema present Neuro: No focal weakness Skin: No rash Discharge Data Allergies Allergy/AdvReac Type Severity Reaction Status Date / Time No Known Drug Allergies Allergy Unknown NONE Verified 05/19/19 15:09 Consultations 05/19/19 15:35 ED Decision to Admit Stat 05/19/19 17:35 Consult Case Management - Discharge Planning Routine 05/20/19 10:31 Consult Gastroenterology Routine 05/20/19 12:02 Consult Urology Routine Hospital Course (1) Diarrhea: Chronic issue; has had multiple colonoscopies with no significant findings. Possibly related to short gut syndrome - had several feet of small/large intestines removed during bladder surgery in 2013. C. diff negative; Stool culture also negative. Celiac panel negative; 24 hour fecal fat test pending. Imodium ac/hs; added Questran 4 gm TID. Bentyl 20 mg q6hr prn abd pain/cramping. Continued mag oxide PO but avoid increased dose in setting of diarrhea. GI and urology following, appreciate input. Diarrhea improved with addition of TID Questran; stable for discharge on 05/24/19. (2) Dehydration: Secondary to large GI volume losses as above. Received sodium bicarb 650 mg daily in setting of very mild non anion gap metabolic acidosis. (3) Vitamin D deficiency: Continued Vit D supplementation (4) Seizure disorder: Continued Keppra 500 mg BID. (5) Generalized anxiety disorder: Continued Paxil 20 mg daily, Buspar 15 mg BID (recently increased approx. one month ago) Likely some withdrawal from not smoking increasing her anxiety (6) HTN (hypertension): Held home HCTZ for now - consider another agent if BP is elevated. (7) CKD (chronic kidney disease), stage III: Baseline appears to be 1.2-1.35 (8) GERD (gastroesophageal reflux disease): Continued PPI. (9) History of total cystectomy: Hx of Ana pouch creation, follows with surgeon in [place] and was seen just prior to symptoms worsening with no issues reported by her providers UCx with bacteria however sample was taken from ostomy bag and given Zapata pouch could likely continue to have dirty urine samples (10) History of TIA (transient ischemic attack): No residual symptoms; continued ASA/Plavix/statin as prescribed. (11) Prediabetes: A1C 5.9. Encouraged weight loss. She does c/o neuropathy pain in her feet -- is not likely related to diabetes, does not have h/o chemotherapy administration leading to neuropathy. Consider initiation of gabapentin as outpatient. (12) Arthritis: Stable, will monitor. (13) Mild obstructive sleep apnea: Pt continues to smoke, cessation encouraged. Nicotine patch. (14) Morbid obesity: BMI 41.5. Encouraged weight loss and heart healthy diet. (15) Hypomagnesemia: Replaced mag prn. Recommend mag oxide 400 mg daily at home -- can increase diarrhea but replacement is necessary. (16) DVT prophylaxis: SCDs; encouraged ambulation. Discharged to home on 05/24/19. Total Time Total Time Spent Total Time Spent (In Minutes): >30 minutes Total Time Includes: Examination of the Patient, Discharge Planning, Medication Reconciliation, Communication With Other Providers and Other Discharge Plan Discharge Items Patient Disposition: Home - Self-Care Reason For Visit: DIARRHEA Discharge Diagnosis: Diarrhea Condition on Discharge: Fair Goals: You have been hospitalized for an acute medical problem. During your stay at [facility], we have made an effort to correct the problem that brought you to the hospital while keeping you as comfortable as possible. Medications were used to bring your condition under control and your discharge instructions will include directions for any medications you should take after leaving the hospital. Please make sure you see your Primary Care Provider as part of your follow up plan. Activity: As commented below Exercise/Sports: Gradually increase as tolerated Non-emergency contact: Primary Care Provider and [facility] Call non-emergency contact if: you have any medication questions, your symptoms worsen and you have a fever Follow-up/Referrals: Lorelei Hackett, [Primary Care Provider] - 05/30/19 9:20 am (*Your follow up appt with Dr. Hackett is scheduled for 05/30/2019 at 0920am. If you need to reschedule this appt please call [phone]*) Diet: Heart Healthy and Low Fiber Addtl Attending Provider Instructions: 1. Diarrhea * Please take Cholestyramine three times daily and Imodium four times daily. * Please follow up with PCP and gastroenterology as scheduled. * Continue to drink plenty of fluids at home. Pending Studies at Discharge: No Stand-Alone Forms: My [facility], Smoking Cessation Medications and DC Order Prescriptions: New Cholestyramine Light 4 gram Powder In Packet 4 g PO TID 30 Days Qty: 60 RF: 1 loperamide 2 mg Capsule 4 mg PO ACHS 1 Days Qty: 2 RF: 0 magnesium oxide 400 mg (241.3 mg magnesium) Tablet 400 mg PO QAM 1 Days Qty: 1 RF: 0 nicotine [Nicoderm CQ] 21 mg/24 hr Patch 24 Hour 21 mg transdermal Q24H 10 Days Qty: 10 RF: 0 Continued simvastatin 20 mg tablet 20 mg PO QPM Qty: 90 RF: 3 buspirone 15 mg tablet 15 mg PO BID Qty: 180 RF: 1 paroxetine HCl 20 mg tablet 20 mg PO DAILY Qty: 90 RF: 1 clopidogrel 75 mg tablet 75 mg PO DAILY Qty: 90 RF: 1 levetiracetam 500 mg tablet 500 mg PO BID Qty: 60 RF: 0 aspirin 81 mg tablet,delayed release (DR/EC) 81 mg PO DAILY RF: 0 hydrochlorothiazide 12.5 mg capsule 12.5 mg PO DAILY Qty: 90 RF: 3 omeprazole 20 mg capsule,delayed release(DR/EC) 20 mg PO DAILY Qty: 30 RF: 0 cholecalciferol (vitamin D3) [Vitamin D3] 25 mcg (1,000 unit) Capsule 1,000 unit PO DAILY RF: 0 Discontinued potassium chloride 20 mEq tablet extended release 40 meq PO BID RF: 0 Discharge Orders: Discharge Order (Routine); Ordered 05/24/19 Ordered By: Rupali Ahmadi Admission Data Admit Date/Time: 05/19/19 15:48 Attending Provider: Sergey Reveles Admit Provider: Rossy Bueno Primary Care Provider: Lorelei Hackett. Other Providers: Rossy Bueno ; Tanesha Elizabeth ; López Roberts Supervising Physician Co-Signing Physician Notes Patient seen and examined on the day of discharge. I agree with the discharge summary by Rupali NINA. I have reviewed the chart including labs, imaging and plans for discharge. patient finally without diarrhea, she is very happy eating well, hydrated well, no abdominal pain discussed plan for Questran and Imodium answered her questions - Diarrhea: unclear etiology, had 24 hour stool collection symptoms controlled with Questran and Imodium recommend follow up with GI and PCP eating well, well hydrated, no abdominal pain, stable for discharge with outpatient management Coding Level of Care Code D/C Day Management >30 mins Diagnoses Diarrhea R19.7 Dehydration E86.0 Vitamin D deficiency E55.9 Seizure disorder G40.909 Generalized anxiety disorder F41.1 HTN (hypertension) I10 CKD (chronic kidney disease), stage III N18.3 GERD (gastroesophageal reflux disease) K21.9 History of total cystectomy Z90.6 History of TIA (transient ischemic attack) Z86.73 Prediabetes R73.03 Arthritis M19.90 Mild obstructive sleep apnea G47.33 Morbid obesity E66.01 Hypomagnesemia E83.42 DVT prophylaxis Z29.9
== END 2019-05-24 15:56 | disposition home or self-care (01) | DRG 392 ==
LOC: ED 13:47 → 4W 15:48 → SUATTDRO 15:48 → 4W 17:18